=== PATIENT | female | born 1995 | race Caucasian/White ===

== ENCOUNTER 2020-03-08 14:48 | Outpatient (CLI) | payer OTHER, SELFPAY ==
--- NOTE | ~2020-03-08 | US_ITS ---
EXAMINATION: US OB >= 14 weeks Fetus EXAM DATE: 03/08/2020 15:44 INDICATION: Routine care. Anatomy. 2nd trimester. TECHNIQUE: Pelvic obstetrical transabdominal sonogram was performed by a technologist. There are mu ltiple grayscale and Doppler images available for interpretation. There are no earlier studies of th is gestation for comparison. FINDINGS: There is a single fetus identified in vertex presentation with a heart rate of 150 beats pe r minute. The placenta is located in the anterior fundal position. There is no sonographic evidence of retroplacental hemorrhage identified. There is subjectively expected amount of amniotic fluid. BIOMETRIC DATA: Biparietal diameter (BPD): 4.2cm ----------------> 18 weeks 4 days. Head circumference (HC): 15.6 cm ----------------> 18 weeks 3 days. Abdominal circumference (AC): 12.3 cm ----------> 18 weeks 0 days. Femur length (FL): 2.6 cm --------------------------> 17 weeks 5 days. These measurements are concordant. HC/AC ratio is 1.27 (The 5th -- 95th percentile range is 1.08-1.27. Estimated weight is 217 g +/- 32 g. This is the 41st percentile when the currently reported cl inical gestation age 18 weeks 0 days, clinical estimated date of delivery ([facility]) 08/09/2020 is used . estimated gestational age based on measurements from this exam is 18 weeks 1 day, with an est imated date of delivery ([facility]) 08/08. ANATOMIC SURVEY: The following anatomy is identified and is sonographically normal in appearance: Cerebral ventricles Cerebellum Cisterna magna Nuchal fold CTL-spine Four-chamber heart Diaphragm Stomach Kidneys Bladder Three-vessel cord Cord insertion IMPRESSION: 1. Single fetus in vertex presentation with heart rate 150 beats per minute. 2. Estimated weight of 217 grams, 41st percentile using the currently reported clinical gestat ion age of 18 weeks 0 days, [facility]) 08/09. 3. Normal anatomic survey. Reviewed, dictated and finalized at location A. NESE INTERPRETER IMPRESSION: 1. Single fetus in vertex presentation with heart rate 150 beats per minute. 2. Estimated weight of 217 grams, 41st percentile using the currently re ported clinical gestation age of 18 weeks 0 days, [facility]IAN([facility]) 08/09. 3. Normal anatomic survey.
== END 2020-03-08 14:49 | disposition home or self-care (01) ==
PROVIDERS: PCP Physician Assistant; Visit Provider Obstetrics & Gynecology
DX: Z34.90 Encounter for supervision of normal pregnancy, unspecified, unspecified trimester (principal); Z3A.18 18 weeks gestation of pregnancy
CPT/HCPCS: 76805

== ENCOUNTER 2023-07-14 12:50 | Outpatient (CLI) | payer OTHER, SELFPAY ==
--- NOTE | 2023-07-14 14:20 | NEURO_ITS ---
Impression: # Diabetic complains of numbness of lower extremities. # Normal motor and sensory Nerve Conduction Study. # Normal needle/EMG exam. # Clinical correlation recommended; Could be related to small fiber neuropathy. Nerve Conduction Studies Anti Sensory Summary Table Stim Site NR Peak (ms) P-T Amp (?V) Site1 Site2 Delta-P (ms) Dist (cm) Charles (m/s) Left Sup Fibular Anti Sensory (Ant Lat Mall) 14 cm 3.1 7.2 14 cm Ant Lat Mall 3.1 16.0 52 Right Sup Fibular Anti Sensory (Ant Lat Mall) 14 cm 3.0 8.8 14 cm Ant Lat Mall 3.0 16.0 53 Left Sural Anti Sensory (Lat Mall) Calf 2.9 19.6 Calf Lat Mall 2.9 16.0 55 Right Sural Anti Sensory (Lat Mall) Calf 3.4 12.0 Calf Lat Mall 3.4 16.0 47 Motor Summary Table Stim Site NR Onset (ms) O-P Amp (mV) Site1 Site2 Delta-0 (ms) Dist (cm) Charles (m/s) Left Peroneal Motor (Vastus Med) Ankle 3.2 5.1 Popit Ankle 8.0 41.0 51 Popit 11.2 4.0 Right Peroneal Motor (Vastus Med) Ankle 3.0 2.9 Popit Ankle 7.9 39.0 49 Popit 10.9 2.7 Left Tibial Motor (Abd Butler Brev) Ankle 3.2 2.9 Knee Ankle 7.8 41.0 53 Knee 11.0 1.9 Right Tibial Motor (Abd Butler Brev) Ankle 3.0 4.5 Knee Ankle 8.2 40.0 49 Knee 11.2 3.9 F Wave Studies NR F-Lat (ms) L-R F-Lat (ms) Left Peroneal (Mrkrs) (EDB) 46.25 1.37 Right Peroneal (Mrkrs) (EDB) 47.62 1.37 Left Tibial (Mrkrs) (Abd Hallucis) 46.53 0.82 Right Tibial (Mrkrs) (Abd Hallucis) 47.35 0.82 EMG Side Muscle Nerve Root Ins Act Fibs Amp Dur Recrt Comment Right AntTibialis Dp Br Fibular L4-5 Nml Nml Nml Nml Nml Right Gastroc Tibial S1-2 Nml Nml Nml Nml Nml Right Fibularis Long Sup Br Fibular L5-S1 Nml Nml Nml Nml Nml Right Flex Dig Long Tibial L5-S2 Nml Nml Nml Nml Nml Right Ext Dig Brev Dp Br Fibular L5, S1 Nml Nml Nml Nml Nml Left AntTibialis Dp Br Fibular L4-5 Nml Nml Nml Nml Nml Left Gastroc Tibial S1-2 Nml Nml Nml Nml Nml Left Fibularis Long Sup Br Fibular L5-S1 Nml Nml Nml Nml Nml Left Flex Dig Long Tibial L5-S2 Nml Nml Nml Nml Nml Left Ext Dig Brev Dp Br Fibular L5, S1 Nml Nml Nml Nml Nml MTDD
== END 2023-07-14 12:51 | disposition home or self-care (01) ==
LOC: ANHNEURO 12:51
PROVIDERS: PCP Emergency Medicine; Visit Provider Emergency Medicine
DX: R20.2 Paresthesia of skin (principal)
CPT/HCPCS: 95886; 95910

== ENCOUNTER 2024-03-28 16:06 | Outpatient (CLI) | payer OTHER, SELFPAY ==
--- NOTE | ~2024-03-28 | US_ITS ---
EXAMINATION: US soft tissue lower back DATE: 03/28/2024 17:43 INDICATION: Low back localized swelling. TECHNIQUE: Multiple grayscale and Doppler ultrasound images of the lower back were obtained. COMPARISON: None FINDINGS: There is a 3.7 x 2.7 x 1.9 cm subcutaneous mass in the right lower back with similar echote xture and echogenicity to normal subcutaneous fat, consistent with a lipoma. IMPRESSION: 1. 3.7 cm subcutaneous lipoma in the right lower back. Reviewed, dictated and finalized at location A. WORKER SUPERVISOR
--- OUTSIDE RECORDS SUMMARY | 2024-03-28 16:39 | XMS_ITS | Referral Summary ---
Author Organization [facility] Address [address] [place] [address] Care Team Providers Care Card Cutter Helper Name Role Phone Clinic, [facility] Primary Care Provider Unavailable Source Comments [facility],non-owned Affiliates and Associated Physician Practices is amultiple site organization consisting of ambulatory clinics and hospital sitesin [place], [place], [place] and [place]. This disclosure is being madepursuant to the Care Everywhere program and may not contain all information available regarding this patient. Last updated 17.[facility] Encounters Date Type Department Care Team Description 03/22/2024 Travel 03/22/2024 8:45 AM LOCAL COMBINATION TRUCK DRIVER Office Visit [facility] [address], [address] [phone] Romel Warren MD Lumbar radiculopathy (Primary Dx); Lumbar pain 03/03/2024 10:59 AM LOCAL COMBINATION TRUCK DRIVER - 03/03/2024 11:59 PM LOCAL COMBINATION TRUCK DRIVER Hospital Encounter [facility] [address] [facility] [place] [phone] Sampson Masterson MD Discharge Disposition: Home or Self Care 03/03/2024 Travel 03/03/2024 11:00 AM LOCAL COMBINATION TRUCK DRIVER Office Visit [facility] [address] [place] [phone] Sampson Masterson MD Lumbar pain (Primary Dx) 02/05/2024 Orders Only [facility] [address] [address] [facility] [place] [address] Sampson Masterson MD Lumbar pain 02/05/2024 Telephone [facility] [address] [place] [address] Sampson Masterson MD Appointment (Referral) from Last 3 Months Allergies Active Allergy Reactions Criticality Noted Date Comments Peanut-Derived Urticaria High Medications * Be aware that medications may not be up to date on this document. Alwaysverify current medications with the patient. Medication Sig Dispensed Refills Start Date End Date Status albuterol HFA (PROVENTIL;VENTOLI N;PROAIR) 108 (90 Base) MCG/ACT inhaler Inhale 2 puffs by mouth every 4 hours as needed 18 g 4 9 Active acetaminophen (TYLENOL) 500 MG tablet Take 2 (two) tablets by mouth every 6 hours as needed Maximum allowable Acetaminophen amount = 4 Grams (4000 mg) / 24 hours. 60 tablet 1 Active aspirin (Aspirin) 81 MG chew tablet Take 1 (one) tablet by mouth once daily 3 Active traMADol (Ultram) 50 MG tablet Take 1 (one) tablet by mouth every 6 hours as needed for Pain Active naproxen (Naprosyn) 500 MG tablet Take 1 (one) tablet by mouth 2 times daily with morning and evening meal Active ibuprofen (Motrin) 800 MG tablet Take 1 (one) tablet by mouth every 8 hours as needed for Fever or Pain Active cyclobenzaprine (Flexeril) 10 MG tablet Take 1 (one) tablet by mouth 3 times daily as needed for Muscle Spasms Active Mounjaro 5 MG/0.5ML injection Inject 5 (five) mg subcutaneously every 7 days Active methylPREDNISolone (Medrol Dosepak) 4 MG tablet Take by mouth as directed <!--EPICS-->Follow package insert dosing for six day supply.<!--EPICE--> 21 tablet 5 Active lidocaine (Lidoderm) 5 % patch Apply 1 (one) patch to skin once daily Apply patch to most painful area and remove after 12 hours. May reapply a new patch 12 hours later. 30 patch 5 Active cyclobenzaprine (Flexeril) 10 MG tablet Take 1 (one) tablet by mouth 3 times daily as needed for Muscle Spasms 30 tablet 5 Active gabapentin (Neurontin) 300 MG capsuleIndications :Lumbar radiculopathy Take 1 (one) capsule by mouth 3 times daily 90 capsule 2 5 Active insulin glargine (Lantus/Semglee) 100 units/mL pen Inject 20 (twenty) Units subcutaneously at bedtime 15 mL 1 3 03/03/19 25 Discontinu ed(List Clean-Up) blood glucose test stripIndications:D iabetes mellitus due to underlying condition, uncontrolled, with hyperglycemia (HCC) Use 1 (one) strip as directed 100 strip 3 03/03/19 25 Discontinu ed(List Clean-Up) lancetsIndications :Diabetes mellitus due to underlying condition, uncontrolled, with hyperglycemia (HCC) Use 1 (one) Each once daily 100 Each 3 03/03/19 25 Discontinu ed(List Clean-Up) metFORMIN (Glucophage) 500 MG tablet Take 1 (one) tablet by mouth 2 times daily with morning and evening meal 60 tablet 3 03/03/19 25 Discontinu ed(List Clean-Up) gabapentin (Neurontin) 100 MG capsule Take 1 (one) capsule by mouth at bedtime 03/22/19 25 Discontinu ed(Dose Adjustment ) semaglutide (Rybelsus) 7 MG tablet Take 1 (one) tablet by mouth once daily Take with a sip of water (< 4 oz) at least 30 minutes before any food, drink, or other meds. 03/03/19 25 Discontinu ed(List Clean-Up) nitrofurantoin monohyd macro crystals (Macrobid) 100 MG capsule Take 1 (one) capsule by mouth 2 times daily with morning and evening meal 4 03/03/19 25 Discontinu ed(List Clean-Up) Methylcobalamin 5000 MCG Take 5,000 mcg by mouth once daily 4 03/03/19 25 Discontinu ed(List Clean-Up) Cobalamin Combinations (B-12) 100-5000 MCG SUBL Take 1 tablet by mouth once daily 4 03/03/19 25 Discontinu ed(List Clean-Up) rosuvastatin (Crestor) 20 MG tablet Take 1 (one) tablet by mouth once daily 03/03/19 25 Discontinu ed(List Clean-Up) Mounjaro 2.5 MG/0.5ML injection Inject 2.5 (two and one-half) mg subcutaneously every 7 days 03/03/19 25 Discontinu ed(List Clean-Up) atorvastatin (Lipitor) 40 MG tablet Take 1 (one) tablet by mouth once daily 4 03/03/19 25 Discontinu ed(List Clean-Up) Active Problems Patient Care Coordination No te Formatting of this note migh t be different from the original. [employer] form completed. Diapers given. 05/21/2020 06/04/2020 07/02/20 NOPP/MFCC 07/2018 Problem Noted Date Diagnosed Date Chlamydial infection 02/05/2024 Abnormal glucose tolerance test (GTT) 02/05/2024 Anemia 02/05/2024 Abnormality of progesterone 02/05/2024 Gonorrhea 02/05/2024 Dysmenorrhea 02/05/2024 state 02/05/2024 Vitamin D deficiency 02/05/2024 Seasonal asthma 02/05/2024 Asthma 02/05/2024 Pain of both sacroiliac joints 10/26/2023 Pain of both hip joints 10/26/2023 Patent foramen ovale 01/29/2023 Tension-type headache 01/29/2023 Acute left-sided weakness 01/14/2023 Chest pain 05/07/2021 Abnormal glucose level 05/07/2021 Palpitations 05/07/2021 Encounter for health-related screening Encounter for induction of labor 08/02/2020 Heterozygous for MTHFR gene mutation 01/08/2020 Bacterial vaginosis 12/14/2019 Supervision of high-risk of young mult igravida 12/06/2018 Asthma affecting , antepartum 9 Subchorionic hematoma 07/13/2018 Carrier of group B Streptococcus 06/15/2018 Overview (06/04/2020): + at NO[facility] with Dr. Rai 05/2018 Carrier of group B Streptococcus 06/15/2018 06/15/2018 Diabetes mellitus 06/03/2018 Overview (02/05/2024): Gestational vs T2DM. Eye exam last completed 02/08/2020. Blood glucose abnormal 06/02/2017 Mild intermittent asthma 06/02/2017 Medial epicondylitis 06/02/2017 Right wrist pain 05/26/2017 Hypertriglyceridemia 02/03/2017 Obesity 05/07/2016 Obesity affecting , antepartum Type 2 diabetes mellitus during History of section complicating pregnan cy Resolved Problems Problem Noted Date Diagnosed Date Resolved Date Normal labor and delivery 01/18/2019 Previous delivery, antepartum 12/27/2018 02/13/2020 Assessment & Plan (12/27/2018 9:59 AM CDT): desires repeat Asthma exacerbation 10/14/2018 10/29/19 19 Asthma, moderate persistent 08/04/2018 12/27/2018 Diabetes mellitus 06/03/2018 06/04/2020 Overview (06/04/2020): A1C 12/08/19: 7.1% Assessment & Plan (12/27/2018 9:57 AM CDT): Overall appropriate blood glucose control. This past week with malfunction of glucose meter. Fetus appropriately grown on last assessment which is reassuring. No changes recommended to insulin regimen. continue twice weekly testing encourage kick counts was scheduled 39 week repeat at next visit--patient needing to arrange work schedule encouraged and weight reduction Assessment & Plan (12/06/2018 4:56 PM CDT): Incomplete blood glucose logs reviewed. Consistent fasting hyperglycemia. No available postprandial lunch or dinner values. I emphasized the risk to the fetus from uncontrolled hyperglycemia and encouraged cooperation with our recommended Diabetes management. Plan of care: Aspirin for preeclampsia Hemoglobin A1c every trimester Serial growth after 20 weeks Twice weekly nonstress testing until delivery Delivery initiation at 39 weeks Insulin drip in labor Recommend weight reduction T2DM (type 2 diabetes mellitus) 05/18/2014 08/04/2018 Respiratory infection 2020 Overview (10/14/2018): in 2019 from chlamydophila pneumoniae Oligohydramnios, antepartum 12/27/2018 Oligohydramnios, antepartum 12/31/2018 Screening, , for fe basia anatomic survey 06/04/2020 Immunizations Name Administration Dates Next Due INFLUENZA VACCINE, TRIV. (AF LURIA, FLUZONE TRIVALENT; 6MO+) (IIV3) 04/27/2014 DTP 11/08/1997, 5,1993,07/02,1993 FLU VACCINE QUAD IIV4 SPLIT 0.25 ML IM 0 HEP A PED/ADULT VACCINE 01/18/2010 HEP B VACCINE, PED/ADOL 07/28/2002,12/15/1997, Human Papilloma Virus Bivalent Vaccine 8 INFLUENZA VACCINE 12/31/2007 MENINGOCOCCAL B VACCINE 10/01/2007 MENINGOCOCCAL CONJUGATE (MCV4P) 10/01/2007 MMR 08/16/2020(), 021(Deferred: See Comments - patient is rubella immune),01/21/2019(Deferred: See Comments - immune),01/20/2019(Deferred: See Comments - immune),11/08/1997,09/04/1994 POLIO,HISTORIC VACCINE 11/08/1997,1995,1993,07/02,1993 TDAP (7yrs+) 08/16/2020(Deferred: See Comments - already administered),08/03/2020(Deferred: See Comments - pt already received),06/04/2020,01/21/2019(Deferr ed: See Comments - already received),11/09/2018,10/01/2007 Social History Tobacco Use Types Packs/Day Years Used Date Smoking Tobacco: Never Smokeless Tobacco: Never Tobacco Cessation:Counseling Given: Not Answered Alcohol Use Standard Drinks/Week Comments No 0 (1 standard drink = 0.6 oz pur e alcohol) AUDIT-C Answer Date Recorded Q1: How often do you have a drink containing alcohol? Never 01/15/2023 Q2: How many drinks containi ng alcohol do you have on a typical day when you are drinking? Patient does not drink 3 Q3: How often do you have si x or more drinks on one occasion? Never 01/15/2023 Overall Financial Resource Strain (CARDIA) Answe r Date Recorded How hard is it for you to pa y for the very basics like food, housing, medical care, and heating? Not hard at all 01/15/2023 PHQ-2 Answer Date Recorded Patient Health Questionnaire-2 Score 0 02/28/2024 [facility] - Occupational Stress Questionnaire Answer Date Recorded Do you feel stress - tense, restless, nervous, or anxious, or unable to sleep at night because your mind is troubled all the time - these days? Not at all 01/15/2023 Hunger Vital Sign Answer Date Recorded Within the past 12 months, y ou worried that your food would run out before you got the money to buy more. Never true 01/16/20 23 Within the past 12 months, t he food you bought just didn't last and you didn't have money to get more. Never true 01/15/2023 PRAPARE - Transportation Answer Date Re corded In the past 12 months, has l ack of transportation kept you from medical appointments or from getting medications? No 12/31 In the past 12 months, has l ack of transportation kept you from meetings, work, or from getting things needed for daily living? No 01/15/2023 Housing Stability Vital Sign Answer Johnson e Recorded In the last 12 months, was t here a time when you were not able to pay the mortgage or rent on time? No 01/15/2023 In the last 12 months, how many places have you lived? 1 01/15/2023 In the last 12 months, was t here a time when you did not have a steady place to sleep or slept in a penitentiary (including now)? No 01/15/2023 Sex and Gender Information Value Date Recorded Sex Assigned at Not on file Gender Identity Not on file Sexual Orientation Not on file Last Filed Vital Signs Vital Sign Reading Time Taken Comments Blood Pressure 122/66 03/22/2024 8:52 AM LOCAL COMBINATION TRUCK DRIVER Pulse 81 03/22/2024 8:52 AM LOCAL COMBINATION TRUCK DRIVER Temperature 36.6 ??C (97.8 ??F) 01/16/2023 9:15 AM CS T Respiratory Rate 16 03/22/2024 8:52 AM LOCAL COMBINATION TRUCK DRIVER Oxygen Saturation 99% 05/04/2023 3:46 PM LOCAL COMBINATION TRUCK DRIVER Inhaled Oxygen Concentration 21% 10/14/2018 9 :28 PM CDT Weight 107.5 kg (237 lb) 03/22/2024 8:52 AM LOCAL COMBINATION TRUCK DRIVER Height 170.2 cm (5' 7 ) 05/04/2023 3:46 PM LOCAL COMBINATION TRUCK DRIVER Body Mass Index 37.12 05/04/2023 3:46 PM LOCAL COMBINATION TRUCK DRIVER Functional Status Functional Status Response Date of Assess ment Is person deaf or have serious hearing difficult y? No 01/15/2023 Is person blind or have serious difficulty seein g? No 01/15/2023 Does person have serious dif ficulty walking/climbing stairs? No 01/15/2023 Does person have difficulty dressing/bathing? No 01/15/2023 Does person have difficulty doing errands alone? No 01/15/2023 Cognitive Status Response Date of Assessm ent Does person have difficulty concentrating/remembering/making decisions? No 01/15/2023 Plan of Treatment Upcoming Encounters Date Type Department Care Team (Late st Contact Info) Description 05/12/2024 10:15 AM CDT Office Visit [facility] [address] [place] [phone] Sampson Masterson MD [address] [place] [address] [place] [address] 05/19/2024 8:30 AM CDT Office Visit [facility] - Rheumatology [address] [place] [address], [place] [phone] Jagjit Harp MD [address] [place] [address] [place] [phone] Procedures Procedure Name Priority Date/Time Associated Diagnosis Comments XR LUMBAR SPINE 4VW OR MORE Routine 03/03/2024 11:06 AM LOCAL COMBINATION TRUCK DRIVER Lumbar pain BASIC METABOLIC PANEL (CALCIUM TOTAL) AM Draw 01/15/2023 1:09 AM LOCAL COMBINATION TRUCK DRIVER HEMOGLOBIN A1C Add on 01/15/2023 1:09 AM LOCAL COMBINATION TRUCK DRIVER HIV-1 HIV-2 ANTIBODY + HIV P24 AG PANEL Routine 06/04/2020 9:10 AM CDT Supervision of high-risk of young multigravida (HCC) False positive HIV serology from Last 3 Months or Most Recently Relevant to Health Maintenance Results * XR Lumbar Spine 4Vw or More (03/03/2024 11:06 AM LOCAL COMBINATION TRUCK DRIVER) Anatomical Region Laterality Modality Spine Radiographic Liliya ging 03/03/2024 11:1 2 AM LOCAL COMBINATION TRUCK DRIVER Impressions 03/03/2024 11:14 AM LOCAL COMBINATION TRUCK DRIVER IMPRESSION: Lumbar dextroscoliosis. > Interpreting Provider: Glynn Ro MD on 03/03/2024 11:14 AM Narrative 03/03/2024 11:14 AM LOCAL COMBINATION TRUCK DRIVER PROCEDURE: ??XR LUMBAR SPINE 4VW OR MORE DATE/TIME OF EXAM: ??03/03/2024 11:10 AM CLINICAL INFORMATION: None relevant/not provided if blank. Indication: M54.50: Lumbar pain Additional History: COMPARISON: None. TECHNIQUE: FINDINGS: There is lumbar dextroscoliosis. There is no fracture. There is no subluxation with flexion or extension. There is a transitional vertebra at the lumbosacral junction. The lumbar disc spaces are normal. The facet joints are normal. Procedure Note Glynn Ro MD - 03/03/2024 PROCEDURE: XR LUMBAR SPINE 4VW OR MORE DATE/TIME OF EXAM: 03/03/2024 11:10 AM CLINICAL INFORMATION: None relevant/not provided if blank. Indication: M54.50: Lumbar pain Additional History: COMPARISON: None. TECHNIQUE: FINDINGS: There is lumbar dextroscoliosis. There is no fracture. There is no subluxation with flexion or extension. There is a transitional vertebraat the lumbosacral junction. The lumbar disc spaces are normal. The facet joints are normal. IMPRESSION: Lumbar dextroscoliosis. > Interpreting Provider: Glynn Ro MD on 03/03/2024 11:14 AM Sampson Masterson MD DIAGNOSTIC IMAGING O RDERABLES * (ABNORMAL) HEMOGLOBIN A1C (01/15/2023 1:09 AM LOCAL COMBINATION TRUCK DRIVER) Hemoglobin A1c 10.5(H) <5.7 % 01/15/2023 1:50 AM LOCAL COMBINATION TRUCK DRIVER [facility] Estimated Average Glucose 255 mg/dL 01/15/2023 1:50 AM LOCAL COMBINATION TRUCK DRIVER [facility] Blood BLOOD SPECIMEN / Unknown Venipuncture / Unknown 01/15/2023 1:09 AM LOCAL COMBINATION TRUCK DRIVER 01/15/2023 1:21 AM LOCAL COMBINATION TRUCK DRIVER Narrative [facility] - 01/15/2023 1:50 AM LOCAL COMBINATION TRUCK DRIVER HbA1c Interpretation: Normal: < 5.7% Pre-diabetes: 5.7-6.4% Diabetes: Equal to or greater than 6.5% Test results diagnostic of diabetes should be repeated for confirmation. Treatment target values recommended by ADA and other clinical organizations should be used to evaluate metabolic control in patients. This test should not replace glucose testing for patients with Type 1 diabetes, pediatric patients, or women. ??Falsely low HbA1c results may be observed in patients with clinical conditions that shorten erythrocyte life span or decrease mean erythrocyte age such as the presence of unstable hemoglobin variants, elevated hemoglobin F level or other causes of hemolytic anemia. ??HbA1c may not accurately reflect glycemic control when clinical conditions that affect erythrocyte survival are present. ??Severe Iron deficiency anemia may yield falsely high results. ??Hemoglobin A1c assay should not be used to diagnose or monitor diabetes in patients with malignancy, recent blood transfusion, chronic kidney or liver disease. ?? This method may yield falsely low results when hemoglobin (HbF) exceeds 5% in the specimen. The Pena Alinity assay for the measurement of HbA1c is a National Glycohemoglobin Standardization Program (NGSP) certified method. Anna Da Silva MD LAB - CHEMISTRY STEFANIA SANCHEZ [facility] Organization Address City/State/ZIP Co de Phone Number [facility] [address] [place] [address] * (ABNORMAL) BASIC METABOLIC PANEL (CALCIUM TOTAL) (01/15/2023 1:09 AM LOCAL COMBINATION TRUCK DRIVER) Glucose 282(H) 70 - 105 mg/dL 01/15/2023 1:37 AM LOCAL COMBINATION TRUCK DRIVER [facility] Sodium 138 136 - 145 mmol/L 01/15/2023 1:37 AM [facility] Potassium 3.7 3.5 - 5.1 mmol/L 01/15/2023 1:37 AM [facility] Chloride 107 98 - 107 mmol/L 01/15/2023 1:37 AM [facility] CO2 20(L) 22 - 29 mmol/L 01/15/2023 1:37 AM [facility] Calcium 8.4 8.4 - 10.4 mg/dL 01/15/2023 1:37 AM [facility] Anion Gap 11 6 - 16 mmol/L 01/15/2023 1:37 AM [facility] BUN 6 5.3 - 18.7 mg/dL 01/15/2023 1:37 AM [facility] Creatinine 0.71 0.57 - 1.11 mg/dL 01/15/2023 1:37 AM [facility] eGFR by CKD-EPI >90 >=90 mL/min/1.7 3 m2 01/15/2023 1:37 AM LOCAL COMBINATION TRUCK DRIVER [facility] Blood BLOOD SPECIMEN / Unknown Venipuncture / Unknown 01/15/2023 1:09 AM LOCAL COMBINATION TRUCK DRIVER 01/15/2023 1:21 AM LOCAL COMBINATION TRUCK DRIVER Anna Da Silva MD LAB - CHEMISTRY STEFANIA SANCHEZ [facility] Organization Address City/State/[facility] Co de Phone Number [facility] [address] [place] [address] * (ABNORMAL) HIV-1 HIV-2 ANTIBODY + HIV P24 AG PANEL (06/04/2020 9:10 AM CDT) HIV1/2 Ab + P24 Ag REACTIVE( A) Non Reactive 06/04/2020 1:42 PM CDT [facility] Blood BLOOD SPECIMEN / Unknown Venipuncture / Unknown 06/04/2020 9:10 AM CDT 06/04/2020 9:27 AM CDT Narrative [facility] - 06/04/2020 1:42 PM CDT HIV-1/HIV-2 Antibody + Antigen screening test is reactive, but is NOT DIAGNOSTIC. HIV-1/HIV-2 AB Differentiation assay, a supplemental test, will be performed. ?? If HIV-1/HIV-2 Differentiation testing is negative, RNA testing will be performed. See separate reports. Suha Vicente MD LAB - CHEMISTRY ORD ERABLES [facility] [address] [place] [address] from Last 3 Months or Most Recently Relevant to Health Maintenance Administered Medications Advance Directives * Full Code (Latest Code Status on File) Date Activated Date Inactivated Comments 01/15/2023 12:06 AM 01/16/2023 3:22 PM * Full Code Date Activated Date Inactivated Comments 08/15/2020 12:52 PM 08/16/2020 9:58 PM * Full Code Date Activated Date Inactivated Comments 08/02/2020 8:53 AM 08/04/2020 3:01 PM * Full Code Date Activated Date Inactivated Comments 01/18/2019 8:27 PM 01/22/2019 5:32 PM * Full Code Date Activated Date Inactivated Comments 12/30/2018 5:05 PM 12/31/2018 8:16 PM Care Teams Card Cutter Helper Relationship Specialty Start Date End Date Clinic, [facility] Update Information PCP - General 08/15/20
--- OUTSIDE RECORDS SUMMARY | 2024-03-28 16:40 | XMS_ITS | Data Portability ---
Author Organization [facility] Address [address] [place] [address] Assessment No assessment recorded. Plan of Treatment Reminders Order Date Submit Date Provider Last Modified By Organization Details Last Modified Time Details Appointments ANY 15 2024 08:15A M Farideh Ortiz MD Not available Not available Not available ANY 30 2024 11:00A M Farideh Ortiz MD Not available Not available Not available Lab RAEGAN (antinucl ear antibodie s) screen, serum 2023 024 JACK [facility], [address], [address], [place], [address], 10/05/2023 15:09:28 HbA1c (hemoglob in A1c), blood 2023 024 [email or web address] In-Office Order, Internal Use Only DO Not Attach Compendium DO Not Attach Compendium, Do Not Delete/merge, [id number] 12/17/2023 13:57:38 Referral orthopedi c surgeon referral - Patient is having episodic back pain. Bilateral hip pain and right sciatica on exam. Bilateral hip osteoarth ritis on xray. Trying to determine the likelihoo d that her pain is due to osteoarth ritis of hips versus sciatica. 2023 024 [facility], [address], [place], [address], 11/13/2023 14:29:23 podiatris t referral 2023 024 bala Baron DPM, [address] , [place], [address], 10/09/2023 09:05:41 physical therapist referral 2023 [facility], [address] [facility] [place], [address], 11/17/2023 08:50:44 pain managemen t referral - Please let me know if not covered 2023 lee Vargas MD, [address] [facility] , [place], [address], 03/25/2024 14:02:52 orthopedi c spine surgeon referral 2023 [facility], [address] [place], [address], 03/25/2024 14:01:48 Procedures None recorded. Surgeries None recorded. Imaging XR, foot - trauma left fifth toe and left fifth metatarsa l 2023 [facility] ([facility] Scheduling), [address] [place], [address], 10/12/2023 18:25:26 MRI, sacroilia c joint(s), w/o contrast - Look at soft tissue around right SI joint, two masses, 2023 [facility] [place] ([facility] Scheduling), [address] [place], [address], 02/05/2024 08:56:07 MRI, lumbar spine, w/o contrast - Approved by insurance Reference # [id number] 2023 [facility] ([facility] Scheduling), [address] [place], [address], 01/13/2024 19:00:50 XR, tibia + fibula - Look for evidence of healing 2024 025 [facility] (One Call Scheduling), [address], [place], [address], 03/23/2024 10:10:20 Medication Orders Naprosyn 500 mg tablet 2023 024 [id number], [address], [place], [address], 10/12/2023 11:51:05 Mounjaro 2.5 mg/0.5 mL subcutane ous pen injector 2023 024 [id number], [address], [place], [address], 12/17/2023 14:03:33 Mounjaro 5 mg/0.5 mL subcutane ous pen injector 2023 024 [id number], [address] [place], [address], 12/17/2023 14:03:33 Naprosyn 500 mg tablet 2023 024 [id number], [address], [place], [address], 12/17/2023 13:57:38 Mounjaro 5 mg/0.5 mL subcutane ous pen injector 2023 024 [facility] #[id number], [address], [place], [address], 01/20/2024 17:33:30 cyclobenz aprine 10 mg tablet 2023 024 [id number], [address], [place], [address], 01/20/2024 17:33:30 ibuprofen 800 mg tablet 2023 024 [facility] #[id number], [address], [place], [address], 01/20/2024 17:33:30 Naprosyn 500 mg tablet 2024 025 [facility] #[id number], [address], [place], [address], 03/23/2024 09:44:49 Patient TargetsNo targets recorded. Patient Instructions Encounter Date Encounter Id Patient Instructions Last Modified By Organization Details Last Modified Time 10/02/2023 [id number] A healthy lifestyle: care instructions [email or web address] Not available 10/02/2023 10:17:59 Reason for Referral Orthopedic Surgeon Referral for Low back pain Patient is having episodic back pain. Bilateral hip pain and right sciatica on exam. Bilateral hip osteoarthritis on xray. Trying to determine the likelihood that her pain is due to osteoarthritis of hips versus sciatica. Referring Physician: Family Nikia Sheridan, Encounter Date: 10/02/2023 Travel Attendants Referral for Low back pain Referring Physician: Family Nikia Sheridan, Encounter Date: 10/02/2023 Physical Therapist Referral for Low back pain Referring Physician: Family Nikia Sheridan, Encounter Date: 10/02/2023 Pain Management Referral for Annular tear of lumbar disc Please let me know if not covered Referring Physician: Family Nikia Sheridan, Encounter Date: 01/20/2024 Orthopedic Spine Surgeon Ref erral for Annular tear of lumbar disc Referring Physician: Family Nikia Sheridan, Encounter Date: 01/20/2024 Results Created Date Observation Date Name Description Value Unit Range Abnormal Flag Note LastModifiedBy Organization Detail LastModifiedTime 09/16/19 24 09/17/2023 VITAM IN B12 AND FOLAT E vitamin B12 679 pg/mL 232-12 45 Not Available [facility] ([facility]) [address], [place], [address], 09/17/2023 13:13:09 09/16/19 24 09/17/2023 VITAM IN B12 AND FOLAT E folate (folic acid), serum 6.7 NG/mL >3.0 A serum folat e kelly ntrat ion of less than 3.1 ng/mL is consi dered to repre sent clini natividad defic iency . Not Available [facility] ([facility]) [address] [facility] [address], [place], [address], 09/17/2023 13:13:09 10/02/19 24 10/03/2023 VITAM IN B12 AND FOLAT E vitamin B12 874 pg/mL 232-12 45 Not Available [facility] ([facility]) [address] [facility], [place], [address], 10/03/2023 08:27:11 10/02/19 24 10/03/2023 VITAM IN B12 AND FOLAT E folate (folic acid), serum 7.7 NG/mL >3.0 A serum folat e kelly ntrat ion of less than 3.1 ng/mL is consi dered to repre sent clini natividad defic iency . Not Available [facility] ([facility]) [address] [facility] [address], [place], [address], 10/03/2023 08:27:11 10/02/19 24 10/05/2023 ANTIN UCLEA R AB MULTI PLEX RFX 9 RAEGAN direct POSITI VE negati ve abnormal Not Available [facility] ([facility]) [address] [facility] [address], [place], [address], 10/05/2023 15:09:28 10/02/19 24 10/05/2023 ANTIN UCLEA R AB MULTI PLEX RFX 9 anti-DNA (ds) Ab qn 1 IU/mL 0-9 Negat jhon <5 Equiv ocal 5 - 9 Posit jhon >9 Not Available [facility] ([facility]) [address] [facility] [address], [place], [address], 10/05/2023 15:09:28 10/02/19 24 10/05/2023 ANTIN UCLEA R AB MULTI PLEX RFX 9 account planner antibodies 1.0 ai 0.0-0. 9 above high normal Not Available [facility] ([facility]) [address] [place], [address], 10/05/2023 15:09:28 10/02/19 24 10/05/2023 ANTIN UCLEA R AB MULTI PLEX RFX 9 olivera antibodies <0.2 ai 0.0-0. 9 Not Available [facility] ([facility]) [address] [facility] [address], [place], [address], 10/05/2023 15:09:28 10/02/19 24 10/05/2023 ANTIN UCLEA R AB MULTI PLEX RFX 9 antisclerode rma-70 antibodies <0.2 Not Available [facility] ([facility]) [address] [facility] [address], [place], [address], 10/05/2023 15:09:28 10/02/19 24 10/05/2023 ANTIN UCLEA R AB MULTI PLEX RFX 9 sjogren's anti-ss-A <0.2 Not Available [facility] ([facility]) [address] [place], [address], 10/05/2023 15:09:28 10/02/19 24 10/05/2023 ANTIN UCLEA R AB MULTI PLEX RFX 9 sjogren's anti-ss-B <0.2 Not Available [facility] ([facility]) [address] [place], [address], 10/05/2023 15:09:28 10/02/19 24 10/05/2023 ANTIN UCLEA R AB MULTI PLEX RFX 9 antichromati n antibodies <0.2 Not Available [facility] ([facility]) [address] [place], [address], 10/05/2023 15:09:28 10/02/19 24 10/05/2023 ANTIN UCLEA R AB MULTI PLEX RFX 9 anti-francie-1 <0.2 Not Available [facility] ([facility]) [address] [facility] [address], [place], [address], 10/05/2023 15:09:28 10/02/19 24 10/05/2023 ANTIN UCLEA R AB MULTI PLEX RFX 9 anti-centrom ere B antibodies <0.2 Not Available [facility] ([facility]) [address] [facility], [place], [address], 10/05/2023 15:09:28 10/02/19 24 10/05/2023 ANTIN UCLEA R AB MULTI PLEX RFX 9 see below: RENATO T [employer]oa ntibo dy Disea se Assoc iatio n ----- ----- ----- ----- ----- ----- ----- ----- ----- ----- ----- ----- Condi tion Frequ ency ----- ----- ----- ----- - ----- ----- ----- ----- ---- ----- ---- Antin uclea r Antib saad, SLE, mixed conne ctive Direc t (RAEGAN- D) fatimah youssef disea ses ----- ----- ----- ----- - ----- ----- ----- ----- ---- ----- ---- dsDNA SLE 40 - 60% ----- ----- ----- ----- - ----- ----- ----- ----- ---- ----- ---- Chrom atin Drug induc ed SLE 90% SLE 48 - 97% ----- ----- ----- ----- - ----- ----- ----- ----- ---- ----- ---- SSA (Ro) SLE 25 - 35% Sjogr en's Syndr ome 40 - 70% Neona basia Lupus 100% ----- ----- ----- ----- - ----- ----- ----- ----- ---- ----- ---- SSB (La) SLE 10% Sjogr en's Syndr ome 30% ----- ----- ----- ----- - ----- ----- ----- ----- --- ----- ---- Sm (anti -Jd h) SLE 15 - 30% ----- ----- ----- ----- - ----- ----- ----- ----- --- ----- ---- [employer] Mixed Conne ctive Tissu e Disea se 95% (U1 nRNP, SLE 30 - 50% anti- ribon ucleo prote in) Polym yosit is and/o r Lecompte tomyo sitis 20% ----- ----- ----- ----- - ----- ----- ----- ----- ---- ----- ---- Scl-7 0 (anti DNA Scler oderm a (diff use) 20 - 35% topoi maria eugenia ase) Crest 13% ----- ----- ----- ----- - ----- ----- ----- ----- ---- ----- ---- Francie-1 Polym yosit is and/o r Lecompte tomyo sitis 20 - 40% ----- ----- ----- ----- - ----- ----- ----- ----- ---- ----- ---- Centr omere B Scler oderm a - Crest varia nt 80% Not Available [facility] ([facility]) [address], [place], [address], 10/05/2023 15:09:28 12/17/19 24 12/17/2023 HbA1c (hemo globi n A1c), blood HbA1c 7.2 Not Available In-Office Order Internal Use Only DO Not Attach Compendium DO Not Attach Compendium, Do Not Delete/merge, [id number] 12/17/2023 12:27:04 09/16/19 24 09/16/2023 XR, lumbo sacra l spine No observ ation record ed. [facility] [address] [place], [address], 09/21/2023 14:21:45 09/16/19 24 09/16/2023 XR, hip, bilat eral No observ ation record ed. [facility] [address] [place], [address], 09/21/2023 14:21:45 10/12/19 24 10/12/2023 XR, foot No observ ation record ed. [facility] [address] [place], [address], 10/14/2023 11:58:49 01/13/20 24 01/13/2024 MRI, lumba r spine , w/o contr ast No observ ation record ed. [facility] [address] [place], [address], 01/20/2024 17:35:52 03/09/19 25 03/09/2024 XR, ankle No observ ation record ed. [email or web address] [facility] [address] [place], [address], 03/10/2024 10:00:21 03/09/19 25 03/09/2024 XR, foot No observ ation record ed. [facility] [address] [place], [address], 03/09/2024 19:20:43 Result Notes None recorded. 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, [place], [address] , [place] [facility] 2 17:58:01 Medial epicondy litis 91423991 Active 2017 Maddison Moreira PA-C Attn: Accounting ,[address] [facility], [place], [address] , [place] [facility] 8 11:53:28 Blood glucose outside referenc e range 529315870 Completed 201706/15/2018 [place] [facility] 9 17:07:31 Mild intermit tent asthma 050347464 Completed 201706/15/2018 [place] [facility] 9 17:07:52 Diabetes mellitus 87880934 Active 2018 Gestatio nal vs T2DM. Eye exam last complete d 0. Brook Lemus MD Attn: Accounting ,[address] [facility], [place], [address] , [place] [facility] 2 17:58:01 Pregnanc y 54670601 Completed 201806/15/2018 Erum Swanson [place] [facility] 1 11:57:10 Chlamydi al infectio n 273676246 Completed Antonieta Sanchez [place] [facility] 9 12:16:48 Abnormal progeste rea 581028901 Completed AntonietaLILLIAN Funez[place] [facility] 9 12:16:48 Gonorrhe a 01293161 Completed LILLIAN [place] [facility] 9 12:16:49 Body mass index 30+ - obesity 353471175 Completed 2017 L[place] [facility] 9 12:16:48 Asthma 497868692 Completed [place] [facility] 9 12:16:48 Hypertri glycerid emia 276923359 Completed 2016 L[place] [facility] 9 12:16:48 Anemia 749171313 Completed [place] [facility] 9 12:16:48 Diabetes mellitus 67882393 Completed 2018 [place] [facility] 9 12:16:48 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 Antonieta [place] [facility] 9 12:16:48 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, [place], [address] , 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, [place], [address] , [facility] - [facility] 2 17:58:00 Body mass index 30+ - obesity 655793190 Completed 2017 Brook Lemus MD Attn: Accounting ,[address] [facility], [place], [address] , [facility] - [facility] 2 17:58:01 Deliveri es by [id number] Completed Brook Lemus MD Attn: Accounting ,[address] [facility], [place], [address] , [facility] - [facility] 2 17:58:00 Diabetes mellitus 73504857 Completed 2018 Gestatio nal vs T2DM. Eye exam last complete d 0. Brook Lemus MD Attn: Accounting ,[address] [facility], [place], [address] , [facility] - [facility] 2 17:58:00 Group B Streptoc occus carrier 17840334202 03 Completed 2018 Brook Lemus MD Attn: Accounting ,[address] [facility], [place], [address] , [place] [facility] 2 17:58:01 Abnormal progeste rea 897306450 Completed Brook Lemus MD Attn: Accounting ,[address] [facility], [place], [address] , [facility] - [facility] 2 17:58:01 Asthma 491143456 Completed Brook Lemus MD Attn: Accounting ,[address] [facility], [place], [place], [address] [place] [address] , [place] [facility] 2 17:58:01 Diabetes mellitus 56758798 Completed 02/08/2016 Removal Reason: resolved JANNET RIDER Attn: Accounting ,[address] [facility], [place], [place], [address] [place] [address] , [place] [facility] 0 08:59:12 Diabetes mellitus 66115849 Completed Antonieta Gould [place] [facility] 5 14:50:23 Abnormal progeste rea 836157329 Active Brook Lemus MD Attn: Accounting ,[address] [facility], [place], [address] , [place] [facility] 2 17:58:01 Abnormal progeste rea 825534639 Completed Antonieta Gould [place] [facility] 5 14:50:23 Vitamin D deficien cy 25687895 Active Khris Rai [place] [facility] 6 11:30:10 Vitamin D deficien cy 96724637 Completed Antonieta Gould [place] [facility] 5 14:50:23 Patent foramen ovale 943767142 Active 2022 JANNET RIDER Attn: Accounting ,[address] [facility], [place], [place], [address] [place] [address] , [place] [facility] 3 10:14:30 Tension- type headache 329853013 Active 2022 JANNET RIDER Attn: Accounting ,[address] [facility], [place], [place], [address] [place] [address] , [place] [facility] 3 10:14:34 Gonorrhe a 25331869 Completed 08/10/2018 Khris R[place] [facility] 9 17:10:02 Gonorrhe a 59991043 Completed Antonieta Gould [place] [facility] 5 14:50:23 Chlamydi al infectio n 612616964 Completed 08/10/2018 Kh[place] [facility] 9 17:09:20 Chlamydi al infectio n 330536927 Completed Antonieta Gould [place] [facility] 5 14:50:23 Bacteria l vaginosi s 971293267 Completed 05/31/2019 JANNET RIDER Attn: Accounting ,[address] [facility], [place], [address] , [place] [facility] 2 15:06:13 Bacteria l vaginosi s 591097534 Completed Antonieta [place] [facility] 5 14:50:23 Asthma 210065156 Active Brook Lemus MD Attn: Accounting ,[address] [facility], [place], [address] , [place] [facility] 2 17:58:01 Asthma 664241816 Completed Antonieta [place] [facility] 5 14:50:23 Glucose toleranc e test outside referenc e range 400993098 Completed 06/15/2018 Khris R[place] [facility] 9 17:07:39 Glucose toleranc e test outside referenc e range 372850649 Completed Antonieta Gould [place] [facility] 5 14:50:23 Anemia 073647452 Active Antonieta Sanchez [place] [facility] 9 12:16:48 Anemia 150303166 Completed Antonieta [place] [facility] 5 14:50:23 Seasonal asthma 114567936 Completed 06/15/2018 [place] [facility] 9 17:07:56 Seasonal asthma 270714073 Completed Antonieta Guold [place] [facility] 5 14:50:23 Large for gestatio n age fetus Active [place] [facility] 6 11:30:10 Large for gestatio n age fetus Completed Antonieta [place] [facility] 5 14:50:23 Postpart [facility] [id number] Completed 06/15/2018 [place] [facility] 9 17:08:13 Postpart state [id number] Completed Antonieta [place] [facility] 5 14:50:23 Deliveri es by [id number] Active Brook Lemus MD Attn: Accounting ,[address] [place], [address] , [place] [facility] 2 17:58:00 Deliveri es by [id number] Completed Antonieta [place] [facility] 5 14:50:23 Postpart care Completed 06/15/2018 Kh[place] [facility] 9 17:08:22 Dermatit is Completed 06/15/2018 Kh[place] [facility] 9 17:11:15 Dysmenor jennifer 837264518 Completed 06/15/2018 Kh[place] [facility] 9 17:11:19 Obesity 282905553 Completed 201606/02/2017 Maddison Moreira PA-C Attn: Accounting ,[address] [facility], [place], [address] , [place] [facility] 8 11:28:31 Problem Notes None recorded. Procedures Surgical History Date Name Laterality Status Provider Name and Address Organization Details Recorded Time 1 IUD Insertion completed [place]ris [place] [facility] 10/04/2020 13:07:28 1 Dilation and Curettage completed Erum Swanson MA PA - [facility] 08/13/2020 11:55:18 1 delivery completed Erum Swanson [place] [facility] 08/13/2020 11:54:59 9 delivery completed LILLIAN Silverio - [facility] 08/13/2020 11:54:47 9 Date of Last Pap Smear completed Erum [place] [facility] 09/22/2018 09:59:39 5 Caesarean Section completed Antonieta Gould [place] [facility] 01/29/2015 15:01:03 Imaging Results Imaging Date Name Status LastModified by Organiz ation Details LastModified Time 09/16/2023 XR, lumbosacral spine completed [facility] [address] [place], [address], 09/21/2023 14:21:45 09/16/2023 XR, hip, bilateral completed [facility] [address] [place], [address], 09/21/2023 14:21:45 10/12/2023 XR, foot completed [facility] [address] [place], [address], 10/14/2023 11:58:49 01/13/2024 MRI, lumbar spine, w/o contrast completed [facility] [address] [place], [address], 01/20/2024 17:35:52 03/09/2024 XR, ankle completed [email or web address] [facility] [address] [place], [address], 03/10/2024 10:00:21 03/09/2024 XR, foot completed [facility] [address] [place], [address], 03/09/2024 19:20:43 Procedure Notes None recorded. Medical Equipment None Reported. Allergies Allergen ID Allergen Name Allergen Category Reaction Reaction Severity Criticality Documentation Date Start Date Code Code System Note Provider Name and Address Organization Details Recorded Time [id number] peanut allergeni c extract food,medi cation anaphylax is moderate Not available 04/27/2014 65278 8 RxNorm Not Available Not Available Not Available Medications Name Sig Start Date Stop Date Status Note LastModified by Organization Details LastModified Time plus 27-1 mg tabs active Not Available Not Available Not Available oxycodone /acetamin ophen 5-325 mg tabs active Not Available Not Available Not Available ibuprofen 800 mg tabs active Not Available Not Available Not Available compounde d medicatio n 200 mg BID for 1 month supply 2014 active Not Available Not Available Not Avai lable norethind rea 0.35 mg tabs active Not Available Not Available Not Available metronida zole 500 mg tabs active Not Available Not Available Not Available Prescript ion - Prior Authoriza tion Request 02/03 completed Not Available Not Available Not Available ferrous sulfate 325 (65 fe) mg tabs active Not Available Not Available Not Available cyclobenz aprine 10 mg tablet TAKE 1 TABLET BY MOUTH THREE TIMES A DAY NEEDED FOR MUSCLE SPASM active Not Available Not Available No t Available amoxicill in 500 mg capsule 01/31 completed Not Available Not Available Not Available Mirena 21 mcg/24 hr (up to 8 years) 52 mg intrauter ine device Take 1 device by intraute rine route. 01/29 completed Not Available Not Available Not Available atorvasta tin 40 mg tablet TAKE 1 TABLET BY MOUTH EVERY DAY 2023 active Not Available Not Available Not Avai lable metformin 500 mg tablet TAKE 1 TABLET BY MOUTH TWICE A DAY WITH MEALS FOR 30 DAYS active Not Available Not Available No t Available Qvar 80 mcg/actua tion Metered Aerosol oral inhaler Inhale 2 puffs twice a day by inhalati on route. 11/09 completed Not Available Not Available Not Available Vitamin B-6 25 mg tablet TAKE 2 TABLETS BY MOUTH AT BEDTIME 08/13 completed Not Available Not Available Not Available cetirizin e 10 mg tablet Take 1 tablet every day by oral route as directed for 14 days. 08/27 completed Not Available Not Available Not Available azithromy dianelys 250 mg tablet TAKE 2 TABLETS BY MOUTH TODAY, THEN TAKE 1 TABLET DAILY FOR 4 DAYS 08/11 completed Not Available Not Available Not Available glyburide 5 mg tablet 11/09 completed Not Available Not Available Not Available ibuprofen 800 mg tablet one tab po tid every six to eight hours. Take with food. active Not Available Not Available No t Available Glucagon Emergency Kit 1 mg solution for injection INJECT 1 MG SUBCUTAN EOUSLY NEEDED FOR DISORDER WITH LOW BLOOD SUGAR 08/13 completed Not Available Not Available Not Available fluconazo le 150 mg tablet Take 1 tablet by oral route. 03/01 completed Not Available Not Available Not Available benzonata te 200 mg capsule TAKE 1 CAPSULE BY MOUTH THREE TIMES A DAY NEEDED FOR 5 DAYS 08/11 completed Not Available Not Available Not Available glyburide 2.5 mg tablet Take 1 tablet twice a day by oral route. 07/02 completed Not Available Not Available Not Available hydrocodo ne 5 mg-acetam inophen 325 mg tablet 06/02 completed Not Available Not Available Not Available metronida zole 0.75 % (37.5 mg/5 gram) vaginal gel Insert 1 applicat orful every day by vaginal route at bedtime for 5 days. 08/13 completed Not Available Not Available Not Available Alcohol Pads Use once daily when checking BS 08/13 completed Not Available Not Available Not Available terconazo le 0.8 % vaginal cream Insert 1 applicat orful every day by vaginal route for 3 days. 03/01 completed Not Available Not Available Not Available penicilli n V potassium 500 mg tablet Take 1 tablet twice a day by oral route for 10 days. 06/16 completed Not Available Not Available Not Available Miconazol e-3 200 mg vaginal supposito ry INSERT 1 SUPPOSIT ORY INTO THE VAGINA AT BEDTIME 08/13 completed Not Available Not Available Not Available acetamino phen 300 mg-codein e 30 mg tablet TAKE 1 TABLET BY MOUTH FOUR TIMES A DAY NEEDED FOR PAIN 01/31 completed Not Available Not Available Not Available ciproflox acin 500 mg tablet Take 1 tablet every 12 hours by oral route. 06/02 completed Not Available Not Available Not Available tramadol 50 mg tablet TAKE 1-2 TABLETS BY MOUTH TWICE DAILY NEEDED FOR PAIN 01/19 completed Not Available Not Available Not Available amoxicill in 500 mg tablet TAKE 1 TABLET BY MOUTH TWICE A DAY WITH MEALS FOR 10 DAYS 03/11 completed Not Available Not Available Not Available Vitamin tablet Take 1 tablet every day by oral route as directed for 90 days. 01/31 completed Not Available Not Available Not Available oxycodone -acetamin ophen 5 mg-325 mg tablet Take 1 tablet every 6 hours by oral route. active Not Available Not Available No t Available ceftriaxo ne 1 gram solution for injection Take 500 mg by injectio n route. 2014 active Not Available Not Available Not Avai lable Flagyl 500 mg tablet Take 1 tablet twice a day by oral route. 02/07 completed Not Available Not Available Not Available benzonata te 100 mg capsule Take 1 capsule 3 times a day by oral route as needed for 10 days. 04/12 completed Not Available Not Available Not Available hydrocort isone 1 % topical cream APPLY TO THE AFFECTED AREA(S) BY TOPICAL ROUTE TWICE DAILY 02/07 completed Not Available Not Available Not Available simvastat in 20 mg tablet Take 1 tablet every day by oral route. 02/07 completed Not Available Not Available Not Available cyanocoba lori (vit B-12) 1,000 mcg/mL injection solution Inject 1 mL every month by subcutan eous route. 08/13 completed Not Available Not Available Not Available ferrous sulfate 325 mg (65 mg iron) tablet TAKE 1 TABLET BY MOUTH EVERY DAY 01/31 completed Not Available Not Available Not Available Banophen 25 mg tablet TAKE 1 TABLET BY MOUTH AT BEDTIME 08/13 completed Not Available Not Available Not Available metformin 1,000 mg tablet Take 1 tablet twice a day by oral route. 05/30 completed Not Available Not Available Not Available lidocaine 5 % topical patch PLEASE SEE ATTACHED FOR DETAILED DIRECTIO NS active Not Available Not Available No t Available Advair Diskus 250 mcg-50 mcg/dose powder for inhalatio n INHALE 2 PUFFS BY MOUTH TWICE DAILY 03/01 completed Not Available Not Available Not Available progester one micronize d 200 mg capsule Take 1 capsule twice a day by oral route as directed for 90 days. 08/13 completed Not Available Not Available Not Available docusate sodium 100 mg capsule 01/31 completed Not Available Not Available Not Available folic acid 1 mg tablet Take 4 tablets every day by oral route. 08/13 completed Not Available Not Available Not Available hydrocort isone 2.5 % topical cream APPLY A THIN LAYER TO THE AFFECTED AREA(S) BY TOPICAL ROUTE 2 TIMES PER DAY 08/13 completed Not Available Not Available Not Available monteluka st 10 mg tablet TAKE 1 TABLET BY MOUTH EVERY DAY 01/31 completed Not Available Not Available Not Available ceftriaxo ne 500 mg solution for injection Take 500 mg by injectio n route. 2014 active [facility] 07198-96 51-4 Not Available Not Available Not Available norethind rea acetate 5 mg tablet Take by oral route for 28 days. 08/11 completed Not Available Not Available Not Available gabapenti n 100 mg capsule TAKE 2 CAPSULES BY MOUTH AT BEDTIME X1 WEEK THEN 3 CAPSULES ONCE DAILY AT BEDTIME active Not Available Not Available No t Available ergocalci ferol (vitamin D2) 1,250 mcg (50,000 unit) capsule TAKE 1 CAPSULE BY MOUTH ONCE WEEKLY 01/29 completed Not Available Not Available Not Available ibuprofen 600 mg tablet 01/31 completed Not Available Not Available Not Available cefuroxim e axetil 500 mg tablet TAKE 1 TABLET BY MOUTH TWICE A DAY FOR 10 DAYS 01/31 completed Not Available Not Available Not Available polyethyl bernardo glycol 3350 17 gram/dose oral powder 01/31 completed Not Available Not Available Not Available methylpre dnisolone 4 mg tablets in a dose pack TAKE 6 TABLETS ON DAY 1 DIRECTED ON PACKAGE AND DECREASE BY 1 TAB EACH DAY FOR A TOTAL OF 6 DAYS active Not Available Not Available No t Available albuterol sulfate HFA 90 mcg/actua tion aerosol inhaler Inhale 1 puff(s) every 4-6 hours by inhalati on route as directed for 30 days. active Not Available Not Available No t Available Naprosyn 500 mg tablet one tab po bid with food. Can try to change to as needed next week 2024 active Not Available Not Available Not Avai lable ondansetr on 4 mg disintegr ating tablet ALLOW TABLET TO DISSOLVE ON THE TONGUE ONCE EVERY 6 HOURS NEEDED FOR NAUSEA/V OMITING 08/13 completed Not Available Not Available Not Available fluoxetin e 20 mg capsule Take 1 capsule every day by oral route in the morning for 30 days. 01/30 completed Not Available Not Available Not Available fluticaso ne propionat e 50 mcg/actua tion nasal spray,simone pension [place] 1 spray every day by intranas al route. 01/29 completed Not Available Not Available Not Available metformin ER 500 mg tablet,ex tended release 24 hr TAKE 1 TABLET BY MOUTH THREE TIMES A DAY WITH MEALS 01/30 completed Not Available Not Available Not Available amoxicill in 875 mg-potass ium clavulana te 125 mg tablet Take 1 tablet every 12 hours by oral route as directed for 7 days. 04/12 completed Not Available Not Available Not Available azithromy dianelys 1 gram oral packet Take 1 packet by oral route for 1 day. 2014 active Not Available Not Available Not Avai lable tobramyci n 0.3 %-dexamet hasone 0.1 % eye drops,simone pension INSTILL 2 DROPS INTO AFFECTED EAR EVERY 6 HOURS 11/09 completed Not Available Not Available Not Available Vitamin 27 mg iron-0.8 mg tablet TAKE ONE TABLET BY MOUTH EVERY DAY active Not Available Not Available No t Available Fish Oil Concentra te 1,000 mg capsule Take 1 capsule every day by oral route. 06/02 completed Not Available Not Available Not Available insulin lispro (U-100) 100 unit/mL subcutane ous pen INJECT 20 UNITS UNDER SKIN 5 10 MIN BEFORE BREAKFAS T,32 UNITS BEFORE LUNCH & 40 UNITS BEFORE DINNER. 01/31 completed Not Available Not Available Not Available azithromy dianelys 500 mg tablet TAKE 2 TABLETS BY MOUTH A SINGLE DOSE 08/13 completed Not Available Not Available Not Available Pearl 0.35 mg tablet Take 1 tablet every day by oral route as directed for 28 days. 08/14 completed Not Available Not Available Not Available rosuvasta tin 20 mg tablet TAKE 1 TABLET BY MOUTH EVERY DAY active Not Available Not Available No t Available nitrofura ntoin monohydra te/macroc rystals 100 mg capsule TAKE 1 CAPSULE BY MOUTH TWICE A DAY 08/27 completed Not Available Not Available Not Available Asprin Ec Low Dose active Not Available Not Available Not Available OneTouch UltraMini kit 03/01 completed Not Available Not Available Not Available ferrous gluconate 324 mg (38 mg iron) tablet Take 1 tablet twice a day by oral route. 03/01 completed Not Available Not Available Not Available Symbicort 160 mcg-4.5 mcg/actua tion HFA aerosol inhaler 03/01 completed Not Available Not Available Not Available Lantus Solostar U-100 Insulin 100 unit/mL (3 mL) subcutane ous pen Inject 20 units every day by subcutan eous route at bedtime for 30 days. active Not Available Not Available No t Available B-12 Plus 5,000 mcg-100 mcg sublingua l tablet TAKE 1 TABLET BY MOUTH EVERY DAY active Not Available Not Available No t Available Asmanex Twisthale r 110 mcg/actua tion(30 doses) breath activated inhalr INHALE 1 PUFF EVERY DAY DIRECTED active Not Available Not Available No t Available Vitamin D3 50 mcg (2,000 unit) tablet Take 1 tablet every day by oral route around the clock for 30 days. 04/01 completed Not Available Not Available Not Available Calcium with Vitamin D3 600 mg (carbonat e)-10 mcg (400 unit) capsule Take 1 capsule twice a day by oral route. 08/13 completed Not Available Not Available Not Available Calcium with Vitamin D 600 mg-10 mcg (400 unit) tablet Take 1 tablet twice a day by oral route as directed . 01/31 completed Not Available Not Available Not Available Non-Drows y Allergy 10 mg tablet 02/03 completed Not Available Not Available Not Available PNV-Selec t 27 mg-1 mg tablet Take 1 tablet every day by oral route. 03/01 completed Not Available Not Available Not Available Lo Loestrin Fe 1 mg-10 mcg (24)/10 mcg (2) tablet Take 1 tablet every day by oral route as directed for 28 days. 01/09 completed Not Available Not Available Not Available Bodcaw 250 mg/mL intramusc ular oil Inject 1 mL every week by intramus cular route. 2014 active low progeste rea, this is hydroxy progeste rea caproate that is covered Not Available Not Available Not Available 28 mg iron-800 mcg tablet Take 1 tablet every day by oral route as directed . 08/13 completed Not Available Not Available Not Available vits 96-ferrou s fumarate 27 mg iron-foli c acid 800 mcg tablet active Not Available Not Available Not Available OneTouch Verio test strips USE TO TEST ONCE DAILY active Not Available Not Available No t Available mecobalam in (vitamin B12) 5,000 mcg disintegr ating tablet one tab po q d 2023 active Not Available Not Available Not Avai lable calcium 600 mg (as carbonate )-vitamin D3 20 mcg (800 unit) tablet Take 1 tablet twice a day by oral route for 30 days. 07/02 completed Not Available Not Available Not Available Linzess 145 mcg capsule Take 1 capsule every day by oral route. 08/13 completed Not Available Not Available Not Available Caltrate plus D 600 mg (carbonat e)-20 mcg (800 unit) chewable tablet Take 1 tablet twice a day by oral route. 2014 active Not Available Not Available Not Avai lable PrePlus 27 mg iron-1 mg tablet Take 1 tablet every day by oral route. 02/03 completed Not Available Not Available Not Available Vol-Plus 27 mg iron-1 mg tablet Take 1 tablet every day by oral route. 03/01 completed Not Available Not Available Not Available OneTouch Verio Flex Meter USE DIRECTED active Not Available Not Available No t Available TechLITE Pen Needle 31 gauge x 5/16 USE 1 SYRINGE 5 TIMES DAILY 01/31 completed Not Available Not Available Not Available TRUEplus Pen Needle 32 gauge x 5/32 USE TO INJECT LANTUS ONCE NIGHTLY active Not Available Not Available No t Available fluticaso ne 232 mcg-salme terol 14 mcg/actua tion breath activated powdr Inhale 2 puffs twice a day by inhalati on route. 05/30 completed Not Available Not Available Not Available Adult Aspirin Regimen 81 mg tablet,de layed release Take 1 tablet every day by oral route. 01/30 completed Not Available Not Available Not Available Ozempic 0.25 mg or 0.5 mg (2 mg/1.5 mL) subcutane ous pen injector Inject 0.5 mg every week by subcutan eous route as directed for 28 days. 02/02 completed Not Available Not Available Not Available OneTouch Ultra Blue Test Strip Take 1 strip every day by miscell. route. 10/04 completed Not Available Not Available Not Available OneTouch Delica Plus Lancet 33 gauge USE TO TEST ONCE DAILY active Not Available Not Available No t Available AltagraciaTouch Delica Plus Lancet 30 gauge USE TO TEST ONCE DAILY 06/28 completed Not Available Not Available Not Available Rybelsus 14 mg tablet TAKE 1 TABLET BY MOUTH EVERY DAY active Not Available Not Available No t Available Rybelsus 7 mg tablet TAKE 1 TABLET BY MOUTH EVERY DAY BEFORE MEALS 08/27 completed Not Available Not Available Not Available Rybelsus 3 mg tablet TAKE 1 TABLET BY MOUTH EVERY DAY BEFORE MEALS 04/01 completed Not Available Not Available Not Available Mounjaro 5 mg/0.5 mL subcutane ous pen injector INJECT 5 MG SUBCUTAN EOULSY ONCE A WEEK active Not Available Not Available No t Available Mounjaro 2.5 mg/0.5 mL subcutane ous pen injector INJECT 2.5MG SUBCUTAN EOUS ONCE WEEKLY FOR ONE MONTH *IF TOLERATE S WELL CAN INCREASE DOSE* active Not Available Not Available No t Available Vitals Date Recorded Body height Provider Name an d Address Organization Details Last Updated DateTime 10/02/2023 170.18 cm Ada Tobias MA [facility] 10/02/2023 09:47:48 Date Recorded Body mass index (BMI) Body weight Provider Name and Address Organization Details Last Updated DateTime 10/02/2023 37.4 kg/m2 261154.58 g Ada Tobias MA [facility] 0 10/02/2023 09:48:56 Date Recorded Oxygen saturation Oxygen saturation in Arterial blood by Pulse oximetry Provider Name and Address Organization Details Last Updated DateTime 10/02/2023 100 % 100 % Ada Tobias MA [facility] 10/02/2023 09:51:30 Date Recorded Heart rate Provider Name an d Address Organization Details Last Updated DateTime 10/02/2023 73 /min Ada Tobias MA [facility] 10/02/2023 09:51:33 Date Recorded Body height Provider Name an d Address Organization Details Last Updated DateTime 10/12/2023 170.18 cm LILLIAN Tavares [facility] 10/12/2023 11:07:29 Date Recorded Body mass index (BMI) Body weight Provider Name and Address Organization Details Last Updated DateTime 10/12/2023 37.4 kg/m2 969083.58 g Ada Tobias [place] [facility] 10/12/2023 11:09:25 Date Recorded Oxygen saturation Oxygen saturation in Arterial blood by Pulse oximetry Provider Name and Address Organization Details Last Updated DateTime 10/12/2023 100 % 100 % LILLIAN Tavares - [facility] 10/12/2023 11:12:04 Date Recorded Heart rate Provider Name an d Address Organization Details Last Updated DateTime 10/12/2023 77 /min LILLIAN Tavares - [facility] 10/12/2023 11:12:07 Date Recorded Body height Provider Name an d Address Organization Details Last Updated DateTime 12/17/2023 170.18 cm LILLIAN Tavares - [facility] 12/17/2023 11:28:41 Date Recorded Body mass index (BMI) Body weight Provider Name and Address Organization Details Last Updated DateTime 12/17/2023 37.4 kg/m2 172100.58 g LILLIAN Tavares - [facility] 1 11:48:10 Date Recorded Oxygen saturation Oxygen saturation in Arterial blood by Pulse oximetry Provider Name and Address Organization Details Last Updated DateTime 12/17/2023 99 % 99 % Ada Tobias [place] [facility] 12/17/2023 11:48:13 Date Recorded Heart rate Provider Name an d Address Organization Details Last Updated DateTime 12/17/2023 78 /min LILLIAN Tavares - [facility] 12/17/2023 11:48:16 Date Recorded Body height Provider Name an d Address Organization Details Last Updated DateTime 01/20/2024 170.18 cm LILLIAN Tavares - [facility] 01/20/2024 16:50:52 Date Recorded Body mass index (BMI) Body weight Provider Name and Address Organization Details Last Updated DateTime 01/20/2024 37.4 kg/m2 618884.58 g LILLIAN Tavares - [facility] 03/21/2023 16:52:00 Date Recorded Oxygen saturation Oxygen saturation in Arterial blood by Pulse oximetry Provider Name and Address Organization Details Last Updated DateTime 01/20/2024 99 % 99 % LILLIAN Tavares - [facility] 01/20/2024 16:53:27 Date Recorded Heart rate Provider Name an d Address Organization Details Last Updated DateTime 01/20/2024 80 /min Ada Tobias MA [facility] - [facility] 01/20/2024 16:53:31 Date Recorded Body height Provider Name an d Address Organization Details Last Updated DateTime 03/23/2024 170.18 cm Ada Tobias MA [facility] 03/23/2024 09:15:52 Date Recorded Body mass index (BMI) Body weight Provider Name and Address Organization Details Last Updated DateTime 03/23/2024 37.4 kg/m2 820234.58 g Ada Tobias MA [facility] - [facility] 0 03/23/2024 09:16:05 Date Recorded Oxygen saturation Oxygen saturation in Arterial blood by Pulse oximetry Provider Name and Address Organization Details Last Updated DateTime 03/23/2024 99 % 99 % Ada Jatinder LILLIAN PA [facility] 03/23/2024 09:21:08 Date Recorded Heart rate Provider Name an d Address Organization Details Last Updated DateTime 03/23/2024 84 /min Ada Jatinder [facility] 03/23/2024 09:21:11 Date Recorded Body temperature Provider Name a nd Address Organization Details Last Updated DateTime 03/23/2024 98.2 [degF] Ada Tobias MA PA - [facility] 09:21:15 Date Recorded Systolic blood pressure Diastolic blood pressure Provider Name and Address Organization Details Last Updated DateTime 10/02/2023 116 mm[Hg] 70 mm[Hg] Ada Tobias LILLIAN CUEV[facility] - [facility] 10/02/2023 09:51:22 Date Recorded Systolic blood pressure Diastolic blood pressure Provider Name and Address Organization Details Last Updated DateTime 10/12/2023 116 mm[Hg] 70 mm[Hg] Ada Tobias LILLIAN PA - [facility] 10/12/2023 11:12:01 Date Recorded Systolic blood pressure Diastolic blood pressure Provider Name and Address Organization Details Last Updated DateTime 12/17/2023 120 mm[Hg] 78 mm[Hg] Ada Tobias MA [facility] 12/17/2023 11:47:54 Date Recorded Systolic blood pressure Diastolic blood pressure Provider Name and Address Organization Details Last Updated DateTime 01/20/2024 122 mm[Hg] 80 mm[Hg] Ada Tobias MA [facility] 01/20/2024 16:53:19 Date Recorded Systolic blood pressure Diastolic blood pressure Provider Name and Address Organization Details Last Updated DateTime 03/23/2024 118 mm[Hg] 76 mm[Hg] Ada Tobias MA PA - [facility] 03/23/2024 09:20:45 Social History Question Answer Notes LastModified by Organizat ion Details LastModified Time Tobacco Smoking Status Never Smoker Antonieta Gould MA null, [place] - [facility] 04/27/2014 17:41:05 Do You Have An Advance Directive? No [email or web address] Information not available 04/27/2014 What Is Your Level Of Alcohol Consumption? None Information not available 05/04/2014 If You Are , What Was Your Level Of Alcohol Consumption Prior To ? Occasional [email or web address] Information not available 04/27/2014 How Many Years Have You Consumed Alcohol? 0 [email or web address] Information not available 01/29/2015 Is Anesthesia Consult Planned? Yes [email or web address] Information not available 04/27/2014 Plan No Information no t available 04/27/2014 Is Blood Transfusion Acceptable In An Emergency? Yes [email or web address] Information not available 04/27/2014 What Is Your Level Of Caffeine Consumption? None [email or web address] Information not available 04/27/2014 Live With Cats/exposure To Cat Litter No [email or web address] Information not available 04/27/2014 How Much Tobacco Do You Chew? None [email or web address] Information not available 04/27/2014 Are You Currently Employed? Yes [email or web address] Information not available 04/27/2014 What Type Of Diet Are You Following? REGULAR [email or web address] Information not available 04/27/2014 Which Illicit Or Recreational Drugs Have You Used? Pt Denies [email or web address] Information not available 08/16/2014 Do You Or Have You Ever Used E-cigarettes Or Vape? Never Used Electronic Cigarettes Information not available 11/29/2019 Education 12 [email or web address] Information no t available 04/27/2014 What Is The Highest Grade Or Level Of School You Have Completed Or The Highest Degree You Have Received? 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 No [email or web address] Information not available 04/27/2014 Frequent Air Travel No [email or web address] Information not available 04/27/2014 Illicit Drugs Pre- Pt Denies [email or web address] Information not available 08/16/2014 How Many Years Have You Used Illicit Or Recreational Drugs? 0 [email or web address] Information not available 08/16/2014 Live Alone Or With Others? Alone [email or web address] Information not available 04/27/2014 Marital Status Single [email or web address] Informatio n not available 04/27/2014 What Was The Date Of Your Most Recent Tobacco Screening? 03/23/2024 Information not available 03/23/2024 How Many Children Do You Have? 3 Information not available 08/13/2020 Do You Use Protection During Sex? Usually [email or web address] Information not available 09/14/2018 What Is Your Relationship Status? Information not available 04/01/2023 Do You Use Your Seat Belt Or Car Seat Routinely? Yes Information not available 08/13/2020 Seat Belts Used Routinely Yes [email or web address] Information not available 04/27/2014 Are You Sexually Active? Yes [email or web address] Information not available 04/27/2014 Do You Have Smoke And Carbon Monoxide Detectors In Your Home? Yes Information not available 04/27/2014 Are You Passively Exposed To Smoke? No Information not available 04/27/2014 Do You Or Have You Ever Used Smokeless Tobacco? Never Used Smokeless Tobacco Information not available 11/29/2019 How Much Tobacco Do You Smoke? No Information not available 05/04/2014 Smoking Pre- No [email or web address] Information not available 04/27/2014 General Stress Level Low [email or web address] Information not available 06/27/2015 Do You Feel Stressed (tense, Restless, Nervous, Or Anxious, Or Unable To Sleep At Night)? [id number] Information not available 04/01/2023 Do You Use Any Illicit Or Recreational Drugs? No Information not available 08/13/2020 Do You Use Sunscreen Routinely? No [email or web address] Information not available 04/27/2014 Supplements Vitamin And Caltrate D 600 Mg BID Starting Today 04/27/2014 [email or web address] Information not available 04/27/2014 Has Tobacco Cessation Counseling Been Provided? No Information not available 08/13/2020 On What Date Was Tobacco Cessation Counseling Provided? 03/23/2024 Information not available 03/23/2024 How Many Years Have You Smoked Tobacco? 0 [email or web address] Information not available 08/16/2014 Do You Or Have You Ever Used Any Other Forms Of Tobacco Or Nicotine? No Information not available 08/13/2020 Sex: Female Functional Status Question Answer Note LastModified by Organization D etails LastModified Time What is your exercise level? None [email or web address] Information not available 04/27/2014 Mental Status None recorded. Family History Relationship Description Onset Age of this Age Resolved Age Notes LastModified by Organization Details LastModified Time Mother Malignant tumor of cervix [facility] Not available 08/06 11:30:11 Maternal Grandmother Diabetes mellitus [email or web address] Not available 08/06 11:30:11 Paternal Grandmother Diabetes mellitus [email or web address] Not available 08/06 11:30:11 Medical History Condition Response Coronary Artery Disease N Blood Diseases N Kidney Cyst N Hyperthyroidism N Blood Transfusion N MRSA N Blood disorders N Emphysema N COPD N Blood Clots N Depression N Pneumonia N Peripheral Arterial Disease N Premature N Edema N TIA N Headaches/Migraines N Anxiety Disorder N Obesity N Infertility N Polyps N Acid Reflux (GERD) N Hematuria N Stroke N Neck Injury N Polio N Hospital Admission other than N Neurologic Disorder N Other Sleep Disorders N Rheumatoid Arthritis N Fibromyalgia N Abdominal Aortic Aneurysm Repair N Kidney Disease N Heart Conditions N Heart Disease/Heart Problems N Hospitalizations N Brain Tumors N Acne N Eating Disorder N Skin Problems N Constipation N Meningitis N Tuberculosis N Cerebral Palsy N Myocardial Infarction N Asthma N Substance Abuse N Peripheral Vascular Disease N Vertigo N Sleep Disorder N Cirrhosis N Pulmonary Embolism N Chicken Pox Y [place] Use Past or Present N Hematologic Disease N Anxiety/Depression N Thyroid Disease N Colon Cancer N Glaucoma N Lung Disease N Developmental or Behavioral Disorders N Bipolar N Pacemaker N Diverticulitis/Diverticulosis N Anesthesia Complications N Orthopedic Problems N Orthotics N Head Injury/Concussion N Congenital Anomalies N Mcpherson Bite N Chronic Kidney Disease N Endometriosis N Liver Disease N Dialysis N Schizophrenia N Speech Delay N Chronic Obstructive Pulmonary Disease N Parkinson's Disease N Thyroid Problems N GI Problems N Developmental Delay N Anemia N Immune System Disorder N Multiple Sclerosis N Colon Polyps N Heart Attack ([place]) N Diabetes Y Cardiomyopathy N Blood Transfusions N Heart Problems/Murmur N Eye Trauma N Congestive Heart Failure (CHF) N Valvular Heart Disease N Hyperlipidemia N Double Vision N Abuse/Domestic Violence N Hepatitis B N Lupus N Epilepsy/Seizures N Reflux/GERD N Aneurysm N Bronchitis N Heart Disease N Hypertension N Pre-Eclampsia N Heart Failure N Other Y Gout N High Blood Pressure N Atrial Fibrillation N Kidney Stones N Head Trauma/Injury N Congenital Heart Disease N Spine Problems N Gastrointestinal Disease N Lung Mass N Sinusitis N Obstructive Sleep Apnea N Muscle, Joint, or Bone Problems N Autoimmune disease N Vision or Eye Problems Y Arthritis N Blood Clot N Cancer N Seasonal allergies N Leg or Foot Ulcers N Raynaud's Disease N Aortic Aneurysm N Arrhythmia N Headaches N Heart Problems N Ambloypia N Ear or Hearing Problems N Hyperparathyroidism N Migraines N Artificial Joints N Kidney or Bladder Problems N NSAID Use N Encephalitis N PTSD N Ulcers N Prostate Hypertrophy N Bleeding Disorder N AIDS/HIV N Urinary Tract Infection N Back Problems N Allergies Y Atrial Flutter N GERD/Reflux N Hepatitis N Autism Spectrum Disorder (ASD) N Breast Cancer N Hernia N Hypothyroidism N Breast Problem N Genitourinary Disease N Deep Vein Thrombosis N Varicose Veins N Cystic Fibrosis N Hearing Loss N Developmental Problems N Carotid Disease N Vitamin D Deficiency N ADHD N Bladder or Kidney Problems N High Cholesterol N [place] N Valvular Abnormalities N Psychiatric/Mental Health Condition N Organ Transplant N Foot Deformity N Allergies/Hayfever N Dyslipidemia N Hyponatremia N Diabetic Eye Disease N Osteoporosis/Osteopenia N Back Pain N Proteinuria N Mental Illness N Neurological Problems N Ovarian Cancer N Bedwetting N Seizures/Epilepsy N Kidney Failure N Ocular trauma N Dementia N Diverticulitis N Sleep Apnea N Mental Problems N Warfarin Management N Osteoporosis N Gynecological History Statement/Question Response Abnormal Pap N Date of LMP 05/12/2023 On BCP's at Conception? N STIs/STDs Yes HPV Vaccine Y Most Recent Mammogram Age at Menarche 11 Current Control Method None Age at First Child 19 Sexually Active? Y Menses Monthly N Date of Last Pap Smear 06/15/2018 Sexual Problems? N LMP Approximate Desired Control Method Partner Vas ectomy Obstetrics History GPAL:G 3 P 3 0 0 3 Type Value Multiple Births 0 Full Term 3 Induced 0 Spontaneous 0 Premature 0 Living 3 Ectopics 0 Total 3 Immunizations Vaccine Type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 rhinorrhea , sore throat, and sinus headache x 2-3 days. Only tried OTC tylenol and ibuprofen. Admits to seasonal allergies, does not take allergy medication .- educated patient that her symptoms are likely viral, continue with supportive care for now and symptoms should continue to improve over the next week- will send augmentin to pharmacy, encouraged her to hold off on medication unless symptoms do not continue to improve- will send medication for her cough- Drink lots of fluids, whatever you like except for alcoholic beverages. - Run a cool-mist humidifier in your room at night.- For sore throat, gargle warm salt water.- Get extra rest and do not over-exert yourself. [id number] MD Libertad Montes (Adult Med) [address] [place] [address] [phone] 0 04/12/2021 16:06:42 04/15/2021 11:06:50 Atypical chest pain 332301057 R07.89 Her chest pain is both exertional and at rest and although she has reproducib le chest pain, she has palpitatio ns with multiple risk factors.CX RCardiolog y input Intermitte nt palpitations 846641849 R00.2 Impaired f asting glycemia 888876079 R73.01 [id number] JANNET RIDER (Adult Med) [address] [place] [address] [phone] 0 06/28/2021 14:24:10 07/01/2021 08:56:13 Anemia 883830562 D64.9 Hx of iron def. anemia in the pastHemogl obin 10.9 on 08-13-2020- check CBC, iron, TIBC, ferritin Diabetes mellitus 959436 09 E11.9 She has a history of gestationa l diabetes and T2DM.Last delivery was in .HbA 1c was 5.8 on 08-13-2020 She has been taking metformin 3-4 times a week and checks her blood sugars 2x/day. Fasting blood sugars range from 110-135 in the last two with one reading of 157.She has been exercising regularly, has cut out fast food and candy. Also recently started a low carb diet and is decreasing her portion sizes. She uses an sahil to track her carbs. 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 It occurs when she is laying down/sitti ng/standin g for extended periods and is quickly relieved with movement and stretching . Has had these symptoms since she was 12 years old. Used to wear a boot for dorsiflexi on and saw a PT as a child. She was told that she had leg length discrepanc y.- ortho referral Intermitte nt palpitations 545651517 R00.2 Two months ago month she was experienci ng intermitte nt chest pain and palpitatio ns. Was seen by Dr. Arambula. She saw cardiology in April and had a potline monitor- NSR. They believe her symptoms are due to anxiety attacks. She has a stress test and ultrasound scheduled in a few weeks.- cardiology workup thus far has been normal, sx likely due to anxiety- will complete cardiology workup (stress test and US) Pain of left calf 415020 8139 595529 M79.662 Daily numbness tingling and pain in left calf since childhood years. It occurs when she is laying down/sitti ng/standin g for extended periods and is quickly relieved with movement and stretching . Has had these symptoms since she was 12 years old.Used to wear a boot at night for dorsiflexi on and saw a PT as a child. She was told that she had leg length discrepanc y but never followed up with additional visits or referrals- normal calf exam today- Old records showed evidence of normal xray of entire LE bilaterall y, venous US, and hip xrays. No notes about reason for brace or certain diagnosis- ortho referral given for malalignme nt of LE- will get xray of ankle and tib/fib on left to restart possible work-up [id number] JANNET RIDER (Adult Med) [address] [place] [address] 01/29/2022 13:58:01 01/31/2022 10:38:50 Acute pharyngitis 027140286 J02.9 Complainin g of sore sore throat and odynophagi a x 5 days. No other symptoms present.Ki ds have been recently sick in the past two weeks with RSV and the flu. Patient has been vaccinated for influenza this season. She also reports right sided ear flutter associated with her sore throat but it has since resolved.- strep negative in the office- bacterial (only sore throat with no other symptoms) vs viral (sick contacts and less than 7 days)- try supportive care, lots of water, salt water gargles, throat lozenges, etc.- medication s prescribed , if no improvemen t in 2 days, start taking Morbid obesity 697796459 E66.01 Advised decreased portion sizes, good food choices, limited eating out or fast food and eliminate soda and juice from diet. Advised physical activity daily and offered encouragem ent to continue with positive changes made so far. Diabetes mellitus 847546 09 E11.9 She has a history of gestationa l diabetes and T2DM.Last delivery was in .HbA 1c was 7.1 on 07/04/21 She has been taking metformin 2 times a day and checks her blood sugars 2x/day.She has been exercising regularly, has cut out fast food and candy. Also recently started a low carb diet and is decreasing her portion sizes. She uses an sahil to track her carbs. - continue Metformin 500 mg, consider GLP-1 medication instead to help with weight loss and lower BS readings- continue with lifestyle changes- Instructed patient that she is due for HA1c and patient agrees to set that up soon when supplies are back in the office- continue to monitor [id number] JANNET BARRY (Adult Med) [address] [place] [address] [phone] 03/11/2022 12:13:17 04/01/2022 13:41:10 Streptococcal sore throat 36776701 J02.0 Sore throat and odynophagi a x 2 days. Strep positive in office today. Will start abx. Discussed supportive care with cold, thin beverages, salt water gargles, throat lozenges, OTC analgesics . RTC if symptoms do not improve. [id number] MD Libertad Montes (Adult Med) [address] [place] [address] [phone] 0 06/16/2022 12:40:45 06/17/2022 09:07:11 Diabetes mellitus 16191275 E11.9 Medication monitoring 39 8303261 Z51.81 Asthma 601521918 J45.90 9 Asthmatic bronchitis 405 261695 J45.909 Persistent cough 7266779 02 R05.3 Vitamin D deficiency 347 63636 E55.9 [id number] JANNET RIDER (Adult Med) [address] [place] [address] [phone] 0 08/11/2022 15:17:43 08/12/2022 11:25:06 Diabetes mellitus 10538319 E11.9 She has a history of gestationa l diabetes and T2DM.Last delivery was in 07/2020.HbA 1c was 10.7 (08/11/22), 7.1 on (07/04/21). She has been taking metformin 1 time a day, but admits to not taking every day of the week- Might take 4 out of the 7 days a weekShe admits to not exercising and eating as healthy the last 6 monthsDoes not take her blood sugars at home d/t losing her machine - Increase Metformin 500 mg BID; discussed the importance of taking medication every day- Continue with lifestyle changes and healthier diet- F/u 1 month; possible add another medication at next visit Asthma 588967446 J45.90 9 History of asthma; well controlled at this time- Continue albuterol inhaler prn- Continue Asmanex Twisthaler daily Vitamin D deficiency 347 01418 E55.9 History of vitamin D deficiency 17.9 (07/04/2021) - Continue vitamin D3 tablet daily Mixed anxi ety and depressive disorder 355759002 F41.8 New onset mood changes within the last 6 monthsUnsu re what has started this, but could be just stress of being a mom She states in the last 6 months she has lost energy, does not feel like getting out of bed, heart racing, increased stress and trouble sleeping at night. She says that she cannot shut her mind off at night.PHQ 2/9 was negative in office today (0 out of 27) - Agreeable to starting SSRI; discussed common AE including worsening depression /anxiety. Call if any prob w/ meds. Call or go to ER if she feels she is a danger to self or others.- started her with fluoxetine 20 mg, patient aware to be patient because it takes 4-6 weeks for drug to reach full efficacy, and do not stop drug without contacting us first- f/u in 1 month Obesity 549785598 E66.9 Advised decreased portion sizes, good food choices, limited eating out or fast food and eliminate soda and juice from diet. Advised physical activity daily and offered encouragem ent to continue with positive changes made so far. [id number] JANNET RIDER (Adult Med) [address] [place] [address] [phone] 09/16/2022 08:45:21 09/17/2022 14:07:45 Obesity 765192803 E66.9 Lost 6 pounds since last visit, working on her diet due to diabetes and fluoxetine is helping to make her feel more motivated- Advised decreased portion sizes, good food choices, limited eating out or fast food and eliminate soda and juice from diet. Advised physical activity daily and offered encouragem ent to continue with positive changes made so far. Diabetes mellitus 234205 09 E11.9 She has a history of gestationa l diabetes and T2DM.Last delivery was in 07/2020.HbA 1c was 9.9 today(09/16), 10.7 (08/11/22), 7.1 on (07/04/21). Began taking metformin 1 time a day. Increased to 500 BID, had GI upset for ~2 days before subsided. Has been much more consistent and began diet measures at home as well - Increase Metformin 500 mg TID; warned that diarrhea will probably return and resolve again, but if doesn't she may return to BID dosing- Continue with lifestyle changes and healthier diet- F/u 2 month; possible add another medication at next visit Mixed anxi ety and depressive disorder 270674719 F41.8 Prior complaints of decreased energy, increased want/need for sleep, heart racing, increased stress and trouble sleeping at night. She says that she cannot shut her mind off at night. Began fluoxetine 20mg capsule 1 month ago, reports now sleeping at night and has more energy to complete tasks and socialize. However, is experienci ng hair loss. PHQ 2/9 was negative in office today (0 out of 27) -discussed improvemen t in symptoms vs SE of hair loss. Made decision to remain on medication and see if hair loss subsides.- if not, consider switching to another SSRI [id number] JANNET RIDER (Adult Med) [address] [place] [address] 01/30/2023 08:23:10 02/02/2023 14:16:17 Diabetes mellitus 70060386 E11.9 She has a history of gestationa l diabetes and T2DM.HbA1c was 10.5 in the hospital ( 3), 9.9 (09/16/2022 ), 10.7 (08/11/22), 7.1 (07/04/21).W as taking Metformin 500 mg BID before hospital admit Started on insulin 20 units in the hospital, BS at home has been decreasing and now around 130s in the morning. Still taking Metformin BID. Not currently on statin. - c/w metformin 500 mg BID- c/w LA insulin 20 units at night for now, consider trying to come off this medication in the future once she is better controlled with non-insuli n therapy- start GLP-1, will try Ozempic, take 0.25 mg once weekly x 1 month and then increase up to 0.5 mg- Continue with lifestyle changes and healthier diet- start statin due to recent hx of possible TIA and uncontroll ed diabetes- f/u in 1 month for repeat HgbA1c Obesity 324290367 E66.9 37.4- Advised decreased portion sizes, good food choices, limited eating out or fast food and eliminate soda and juice from diet. Advised physical activity daily and offered encouragem ent to continue with positive changes made so far. Patent foramen ovale 204 616803 Q21.12 Echo in the hospital showed patent PFO, recommende d f/u with cardiology as an outpatient to discuss possible closure- discussed PFO diagnosis with patient and increased risk for stroke/TIA - referral placed today Transient cerebral ischemia 189629113 G45.9 Presented to [facility] on 01/14/2023 for headache, left arm numbness, left leg weakness and nausea. CT scan in [facility] came was negative, TKA administer ed. Transferre d to [facility] for further work-up. MRI brain normal. Symptoms improved while hospitaliz ed.TTE showed PFO, no cardiology referral was given upon discharge. No clear diagnosis of stroke was given to patient at time of hospital stay or upon discharge. Discharge home with baby aspirin. Since hospital stay, continues to have left arm and left leg paresthesi as and weakness. Admits to tension-li ke headaches, tinnitus of the left ear, and dizziness with position changes. States her mood is overall stable, admits this hospital admission did scare her but feels like her mood is in a good place. - discussed her hospital stay in length and reviewed her imaging studies with patient- neurology referral placed to help give more a definitive diagnosis- concern for CVA due to continued residual symptoms- continue with baby aspirin, start statin- keep BP controlled , work on lowering BS levels with new medication - cardiology referral for patent PFO- avoid any estrogen type control in the future Neuropathy 382895819 G62 .9 Hospitaliz ed at [facility] from 01/14/2023 - 3 for possible TIA/CVASin ce hospital stay, continues to have numbness and tingling in the left lower leg and foot with mild weakness, symptoms worse at night when sleeping. Notes this pain is different compared to her sciatica pain. Also having continued mild left arm paresthesi as and weakness.O n PE: mildly decreased strength in both left arm and leg- residual symptoms concerning for CVA diagnosis- start gabapentin at night for symptoms- work on resistance training to regain strength Elevated blood-pressure reading without diagnosis of hypertension 442468038 R03.0 BP elevated in the hospital during recent admit for possible TIA/stroke BP today: 116/70- BP kit provided to patient today through her insurance- check BP daily or when having any concerning symptoms, keep systolic less than 140 and diastolic less than 90 Tension-type headache 39 0736532 G44.209 Complainin g of intermitte nt bilateral HAs, twice a week still since recent hospital stay. The headaches are usually temporal or occipital in location, agrees that it can feel like a tight headband around her head. Has been improving with tylenol as needed.On PE: trapezius muscles tight and stiff bilaterall y- symptoms and history sound mostly like tension headaches- continue with supportive care including topical medication s, massage, OTC medication , and stretching - if symptoms get worse, let me know [id number] MD Libertad Sheridan (Adult Med) [address] [place] [address] [phone] 0 03/06/2023 12:17:21 03/09/2023 15:40:38 Mass of subcutaneous tissue of back 1308661074 23435 R22.2 bilateral tender subcutaneo us masses. Consider lipomas. General surgery consult for possible excision. Tramadol for pain control in the meantime. Concerned about GI toxicity with her taking anti-infla mmatory and aspirin. Has follow up with me the end of March. [id number] Dany Mendez MD [facility] [address] [place] [address] 03/12/2023 13:54:55 03/17/2023 09:15:53 Lipoma of lower back 714814262 D17.1 patient with soft tissue mass c/w lipoma. Less likely severe muscle knots, though this seems unlikely. Amenable to resection. Risks include bleeding, wound infection, and a slight risk of recurrence . Have also discussed the small possibilit y of a negative operation, as well as the possibilit y that not all of her back pain issues are being caused by these lipomas. Will proceed to the OR as soon as is convenient . Patient in agreement with the plan of care. [id number] MD Libertad Sheridan (Adult Med) [address] [place] [address] [phone] 0 04/01/2023 12:01:58 04/02/2023 11:25:18 Type 2 diabetes mellitus 89907640 E11.9 Continue present medication . Will return for fasting blood work to assess patient's control of diabetes. Recently saw opthalmolo gist and did not have eye diseasse. Will follow up in two months and will bring fasting blood glucose levels. Lipoma of back 744180320 D17.1 Saw surgeon. Recommende d surgical excision. Waiting to follow up with neurologjennifer brunson and cardiologdave calzada. Taking Tramadol prn for pain. Patent foramen ovale 204 160682 Q21.12 Is rescheduli ng appointmen t with cardiologdave calzada. They want to schedule surgical repair. Transient cerebral ischemia 406198234 G45.9 Some uncertaint y about diagnoses. Possibly migraine. Had to reschedule appointmen t with neurologjennifer brunson. I will review hospital records. Continue aspirin and statin. Migraine 41727966 G43.90 9 Continue Tramadol as needed. Will discuss with neurologjennifer brunson. Paresthesi a of lower extremity 000965765 R20.2 chronic paresthesi a of left lower extremity since prior to cerebral ischemia. Advised her to discuss with neurologjennifer brunson. Will follow up after neurology appointmen t. [id number] MD Libertad Sheridan (Adult Med) [address] [place] [address] 0 05/29/2023 12:16:49 06/01/2023 15:44:44 Paresthesia of lower extremity 718379221 R20.2 Continues with paresthesi a of left lower extremity. Neurologjennifer t told her to follow up with PCP. Will proceed with nerve conduction studies and EMG. Type 2 linnea betes mellitus 42433921 E11.9 Recent Hemoglobin A1C 7.1. Due to her young age we discussed a goal hemoglobin A1C of 6. Will increase Rybelsus to 14 mg. Continue periodic fasting acu checks. Will follow up in three months to repeat fasting hemoglobin A1C. Patent foramen ovale 204 383704 Q21.[address] Ariasin g if it will require surgical repair. Migraine 80012967 G43.90 9 Followed by neurologjennifer brunson. Hyperlipidemia 87508577 E78.5 Lipid panel was very good but LDL was 80. Goal LDL is seventy. Consider increasing statin. At follow up discuss increasing Atorvastat in to 80 mg. [id number] ROMAINE WILKS (Adult Med) [address] [place] [address] [phone] 0 06/01/2023 10:07:41 06/05/2023 11:07:07 Exposure to SARS-CoV-2 234180498 Z20.797 [id number] MD Libertad Sheridan (Adult Med) [address] [place] [address] 08/28/2023 12:20:57 08/31/2023 15:18:26 Body mass index 30+ - obesity 547668283 Z68.37 Hip pain 47019357 M25.55 9 Bilateral hip pain on exam, most significan t on the right side. Will proceed with xrays. If normal consider RAEGAN. Sciatica 81580366 M54.31 Right sided sciatica. Neurology exam is normal. Will get xray LS spine. Left leg p eripheral neuropathy 4027248075 02553 G62.9 EMG and nerve study were normal. The neurologis t she saw suggested she follow up with primary care regarding this problem, but that may have been the vascular neurologis t she saw. We will increase the dose of the Gabapentin to see if it helps her symptoms. It may be reasonable to refer her to another neurologis t for another opinion. I am gettng an xray of her back. If it is normal I will discuss the option of another neurology referral to her. Will check a B12 since patient has been on Metformin and this can cause a B12 deficiency which can cause peripheral neuropathy symptoms. Type 2 linnea betes mellitus 42748749 E11.9 Has not taken the increased dose of Rybelsus the last few weeks. She will take it regularly and will repeat Hemoglobin A1C in a few months. Gets yearly eye exams. Believes she is due in March. Patent foramen ovale 204 893266 Q21.[address] Peace cheng if it will require surgical repair. Migraine 78145416 G43.90 9 Had possible TIA symptoms. I reviewed neurology note and it seems he felt her symptoms were due to a migraine. For the time being she will continue a baby aspirin a day, but I will try to reach out to him to find out if he feels that is necessary. [id number] MD Libertad Sheridan (Adult Med) [address] [place] [address] 10/02/2023 09:45:33 10/23/2023 08:20:55 Body mass index 30+ - obesity 727327175 Z68.37 Has been taking Rybelsus 14 mg for several months and we are not seeing a significan t weight gain. Will discuss alternativ es at follow up. Low back pain 591047329 M54.50 When she has pain is is episodic, which is more consistent with disc disease then hip osteoarthr itis, but it may be a combinatio n of both problems. Will have her start physical therapy which will definitely help her back. She has no neurologic changes on exam. She can continue Tramadol as needed and recommende d she avoid all aggravatin g activity. Also advised her to continue to work on weight loss. Will check an RAEGAN to rule out auto immune issues due to arthritis at a young age. Leg length inequality 45 139744 M21.70 History of leg length discrepanc y. Will refer her to podiatry to see if they can fit her with some orthotics. Osteoarthr itis of bilateral hip joints 9315111771 27680 M16.0 X-rays show moderate bilateral osteoarthr itis. We will have her see an orthopod to get their opinion as to how much of her symptoms are related to the osteoarthr itis in her hips. [id number] MD Libertad Sheridan (Adult Med) [address] [place] [address] [phone] 0 10/12/2023 11:06:59 10/13/2023 13:13:14 Pain in left foot 7407383291 03253 M79.672 Trauma with pain over left fifth toe and fifth metatarsal . Will get xray to look for fracture. Will treat with Naprosyn BID with food and surgical shoe. Will have her matt tape to adjacent toe. Will give additional directions pending result of x-ray. [id number] MD Libertad Sheridan (Adult Med) [address] [place] [address] [phone] 0 12/17/2023 11:21:52 12/22/2023 10:00:46 Type 2 diabetes mellitus 87965416 E11.9 Is on the maximum dose of Rybelsus and has not seen any appreciabl e weight loss. I also feel that her diabetes is not as tightly controlled as I would like it to be, given her young age. I would like her Hemoglobin A1C to be closer to 6.5. I am going to stop her Rybelsus and try switching her to Mounjaro and see if we get better results. I reviewed the side effects of abdominal pain and nausea. We discussed the risks of pancreatit is and thyroid cancer. Patient has no personal or family history of either of these things, and would like to try the medication . She will follow up in three months. She will let me know if she has any abdominal pain. Low back pain [id number] M54.50 Multiple episodes of acute low back pain 11/09 which is debilitati ng and has her bed ridden for days. She has completed physical therapy which did not seem to help at all and right after ng she had another episode. Her symptoms are consistent with episodes of disc herniation . Will proceed with MRI of LS spine. Mass of back [id number] R 22.2 Had tender mass right lower back consistent with lipoma, and now has a second one. Will proceed with MRI for further evaluation . Pain in left foot [id number] 4415 91812 M79.672 Trauma with pain over left fifth toe and fifth metatarsal . Will get xray to look for fracture. Will treat with Naprosyn BID with food and surgical shoe. Will have her matt tape to adjacent toe. Will give additional directions pending result of x-ray. [id number] Farideh Ortiz MD [facility] ([facility]) [address] [place] [address] [phone] 01/20/2024 16:50:23 01/26/2024 11:39:47 Annular tear of lumbar disc [id number] M51.369 Will refer her to Orthopedic surgeon to discuss treatment options. She has been dealing with recurrent episodes of this pain for years, and given the annular tear on the MRI, I believe surgical interventi on may be the best option for resolution of this. She would like to try injections to see if it helps, but also meet with the orthopedic surgeon to hear their thoughts on recommende d treatment. Will refer to pain management and orthopedic surgery. Will have her stop her evening Gabapentin and try a muscle relaxer at night. She can increase her Ibuprofen dose to 800 mg TID with food. She can take Tylenol in between if it is needed. Type 2 linnea betes mellitus [id number] E11.9 Will increase Mounjaro to 5 mg subcu weekly. Will Follow up in three months. Asked her to keep track of her fasting sugars. If nausea is worse with higher dose asked her to let me know. Last blood work was in April. [id number] Farideh Ortiz MD [facility] ([facility]) [address] [place] [address] [phone] 03/23/2024 09:14:57 03/23/2024 09:45:16 Closed fracture of lateral malleolus [id number] S82.65XA Rest, ice, and elevate. Can continue Naprosyn BID with food for another week and then try to decrease as needed. Will repeat the x-ray to look for healing. Continue wearing the boot and using crutches to avoid weight bearing. Follow up in two weeks. Original x-ray said fracture was of the medial malleolus, but her exam is consistent with fracture of the lateral malleolus. Will ask radiology to review the x-ray and send an amended report if necessary. Annular te ar of lumbar disc [id number] M51.369 Saw Orthopedic s and Pain management . Is going to be getting an injection. Increased Gabapentin and advised to take it TID. On the weekend takes muscle relaxer in the evening instead of Gabapentin . Health Concerns Section Related Observation LastModified by Organization Detai ls LastModified Time None Recorded Concern Status LastModified by Organization Details LastModified Time None Recorded Advance Directives Directive N: Payers Encounter Date Sequence Insurance Name Policy Number Policy Mendoza Covered Member ID Mendoza Member ID Guarantor Name 10/02/2023 1 [facility] (MEDICAID HM) [id number] 0003 Lilo Mane [id number] Charis Mane 10/12/2023 1 [facility] (MEDICAID HMO) [id number] 0003 Lilo Mane [id number] Charis Mane 12/17/2023 1 [facility] (MEDICAID HMO) [id number] 0003 Lilo Mane [id number] Charis Mane 01/20/2024 1 [facility] (MEDICAID HMO) [id number] 0003 Lilo Mane [id number] Charis Mane 03/23/2024 1 [facility] (MEDICAID HMO) [id number] 0003 Lilo Mane [id number] Charis Mane Notes Date Note Type Note Provider Name and Address Organization Details Recorded Time 10/02/2023 text/html here for back pa in, woke early Thursday morning with significant pain, this happened after was playing with the kids Thursday night, when does more things and more active notices it more, in the mornings does thirty minutes walking, tries to walk at night as well, when more active with the kis has more problems, these issues are episodic, pain in the lower back and sometimes shoots down right side, does heating pad, aggravated by lifting laundry, cannot stand for very long, cannot mop or sweep, no weakness in leg muscles, no generalized numbness, started B12 pills used Tramadol the last two days and it is helping, when gets flare ups down for two days, has been told left leg a little shorter than right, Farideh Ortiz MD Attn: Accounting[address] , [place], [address], [facility] 10/02/2023 13:27:56 10/12/2023 text/html injury Thursday ni ght, going from kitchen to living room, hit left foot, next morning woke up and looked like nail was coming off, it was bleeding, chasing kids around, hit foot again, it is really painful, called Urgent Care, Farideh Ortiz MD Attn: Accounting[address] , [place], [address], [facility] 10/12/2023 11:51:41 12/17/2023 text/html follow up, side of left foot has been hurting, side of foot hurts to the touch, slight swelling, no redness, aching every once in awhile, not waking her at night, checking sugars about twice a week, fasting 120, last saw eye software application tester Mar 2023, back is still hurting, did six weeks of PT, more mindful about what she is doing with her back, none of this has helped, had another flare up this past after completed PT, was cooking and washing dishes, felt a sharp pain in right lower back, had to stop doing what she was doing, pain was severe, Thursday woke up and could barely walk because if walk feels like something is stretching the bones on the right side, couldn't lift legs because felt like something would be pulled apart, felt like back labor pain, so tight like something is going to pull apart, pain 9 out of 10, all functioning stops when this happens, no tingling or numbness or weakness, no loss of bowel bladder control, no family history or personal history of pancreatitis or thyroid cancer Farideh Ortiz MD Attn: Accounting, [address] , [place], [address], [facility] 12/17/2023 14:03:49 01/20/2024 text/html here for back pa in, started cleaning on the floor, was cleaning up and had been standing for a long period of time, sat down for about thirty minutes, was reaching, felt pressure in lower back, down both legs but mostly left, right lower back hurts most and left leg, mostly to calf, numbness only calf and sometimes to great toe, left side a little weak, alternating Ibuprofen 400 mg and Tylenol, Gabapentin, heat and cold, Is taking Mounjaro 2.5 mg once a week, has not been loosing weight, not sure what fasting glucose is because has not been checking lately. Some nausea first thing in the morning the day after the injection, but that resolves quickly and is not significant. Farideh Ortiz MD Attn: Accounting, [address] [place], [address], [facility] 01/21/2024 09:49:02 03/23/2024 text/html follow up, two w eeks since foot fracture, using crutches, toward the middle of the day gets a little swollen, uses ice packs, taking Naproxyn BID with food, has numbness in foot but it is the same numbness she has had related to her back, saw pain management and ortho for her back, ortho did not feel surgery was necessary, recommended steroid shot, referred to pain management, saw them yesterday, pain management said to take Gabapentin 300 mg TID, on the weekends take muscle relaxer at night, planning for an injection, has follow up for diabetes in April Farideh Ortiz MD Attn: Accounting, [address] [facility], [place], [address], [facility] 03/23/2024 09:45:13 OBGyn Episode Ob Episode Information Episode Created Date Number of Fetuses Patient Bloodtype Patient rh Status Prepregnancy Weight lbs Domestic Partner Domestic Partner Phone Father Name Product Tester Status 06/16/19 19 1 240 DELETED Fetus Data First Name Last Name Admitted to NICU Weight (g) Sex Living Outcome Pediatric Complications Fetus ID Race Codes Race Delivery Type [id number] Bennett Calculation Initial Bennett Date Initial Exam Date Initial Exam Provider Initial Ultrasound Date Last Menstrual Period Date Ultra Sound Weeks Gestation 03/01/2019 06/15/2018 [facility] 05/25/2018 0 Eighteen To Twenty Week Bennett Update Ultra Sound Date Fundal Height At Umbil Quickening Date Ultra Sound Latest Weeks Gestation Final Bennett Confirmed By Final Bennett Confirmed Date Final Bennett Date Ultra Sound Latest Days Gestation 0 03/01/20 19 0 Menstrual History Last Menstrual Date Menses Monthly On Bcp Conception Prior Menses Frequency Hcg Plus Date Menarche Onset Age 0305/25/2018 false Delivery Information Delivery Date Delivery Type Labor Anesthesia Weeks Gestation Incision Type Labor Labor Length Hrs Delivered By Post Complications Tubal Sterilization Discharge Date Comments Discharge Information Feeding Method Contraceptive Method Maternal HG B and HCT Levels Ob Episode Information Episode Created Date Number of Fetuses Patient Bloodtype Patient rh Status Prepregnancy Weight lbs Domestic Partner Domestic Partner Phone Father Name Product Tester Status 06/16/19 19 1 240 DELETED Fetus Data First Name Last Name Admitted to NICU Weight (g) Sex Living Outcome Pediatric Complications Fetus ID Race Codes Race Delivery Type [id number] Bennett Calculation Initial Bennett Date Initial Exam Date Initial Exam Provider Initial Ultrasound Date Last Menstrual Period Date Ultra Sound Weeks Gestation 02/09/2019 06/15/2018 [facility] 05/05/2018 0 Eighteen To Twenty Week Bennett Update Ultra Sound Date Fundal Height At Umbil Quickening Date Ultra Sound Latest Weeks Gestation Final Bennett Confirmed By Final Bennett Confirmed Date Final Bennett Date Ultra Sound Latest Days Gestation 0 02/10/20 19 0 Menstrual History Last Menstrual Date Menses Monthly On Bcp Conception Prior Menses Frequency Hcg Plus Date Menarche Onset Age 0305/05/2018 false Delivery Information Delivery Date Delivery Type Labor Anesthesia Weeks Gestation Incision Type Labor Labor Length Hrs Delivered By Post Complications Tubal Sterilization Discharge Date Comments Discharge Information Feeding Method Contraceptive Method Maternal HG B and HCT Levels Ob Episode Information Episode Created Date Number of Fetuses Patient Bloodtype Patient rh Status Prepregnancy Weight lbs Domestic Partner Domestic Partner Phone Father Name Product Tester Status 06/16/19 19 1 O Positive 240 CLOSED Fetus Data First Name Last Name Admitted to NICU Weight (g) Sex Living Outcome Pediatric Complications Fetus ID Race Codes Race Delivery Type bhumi 3798.83 3 M Full Term 93316 [id number] Simóni roc Moore can Radha n Problems Problem Notes Product Tester Darcy Bradley. If boy, yes to circ. Repeat c/s. pt thinking aboutmaybe a , to be decided later on in . Combo feeding. PPBC BCP. 09/14/2018 mds Problem Name Start Date End Date Resolution Snomed Code Not e Hypertriglyceridemia 02/04/2017 24020121 6 Subchorionic hematoma 07/13/2018 7592265 04 Chlamydial infection 757145052 Gonorrhea 47873557 Abnormal progesterone 92805962 0 Diabetes mellitus 06/03/2018 97286638 Asthma 050394464 Group B Streptococcus carrier 06/15/2018 0045920196151 Body mass index 30+ - obesity 06/02/2017 580130424 Anemia 135686301 Bennett Calculation Initial Bennett Date Initial Exam Date Initial Exam Provider Initial Ultrasound Date Last Menstrual Period Date Ultra Sound Weeks Gestation 01/24/2019 06/15/2018 nelli 06/28/2018 05/25/2018 10 Eighteen To Twenty Week Bennett Update Ultra Sound Date Fundal Height At Umbil Quickening Date Ultra Sound Latest Weeks Gestation Final Bennett Confirmed By Final Bennett Confirmed Date Final Bennett Date Ultra Sound Latest Days Gestation 06/29/19 19 [address] [facility] 11/09/2018 019 0 Pre-marion Flowsheet Flowsheet Date 06/15/2018 Gauillon Score Blood Edema Fundus Height Fundus Units Glucose Ketones Leukocytes Nitrite Labor Signs Protein Cervic Dilation Cervic Effacement Cervic Station Type Weight in lbs Pre/Post Dialysis Refused Weight 242.385459027081 BP Diastolic BP Location Tested BP Systolic BP Type 78 130 sitting Fetus Heart Rate Present Fetus Movement Comments Flowsheet Date 07/02/2018 Aguillon Score Blood Edema Fundus Height Fundus Units Glucose Ketones Leukocytes Nitrite Labor Signs Protein Cervic Dilation Cervic Effacement Cervic Station Type Weight in lbs Pre/Post Dialysis Refused BP Diastolic BP Location Tested BP Systolic BP Type Fetus Heart Rate Present Fetus Movement Comments Flowsheet Date 07/13/2018 Aguillon Score Blood Edema Fundus Height Fundus Units Glucose Ketones Leukocytes Nitrite Labor Signs Protein Cervic Dilation Cervic Effacement Cervic Station Type Weight in lbs Pre/Post Dialysis Refused Weight 240.993480895950 BP Diastolic BP Location Tested BP Systolic BP Type 68 116 sitting Fetus Heart Rate Present Fetus Movement Comments Flowsheet Date 08/10/2018 Aguillon Score Blood Edema Fundus Height Fundus Units Glucose Ketones Leukocytes Nitrite Labor Signs Protein Cervic Dilation Cervic Effacement Cervic Station neg none 15 wks none negative none neg Type Weight in lbs Pre/Post Dialysis Refused BP Diastolic BP Location Tested BP Systolic BP Type 80 110 sitting Fetus Heart Rate Present A 161 Present Fetus Movement A Yes Comments Flowsheet Date 08/11/2018 Aguillon Score Blood Edema Fundus Height Fundus Units Glucose Ketones Leukocytes Nitrite Labor Signs Protein Cervic Dilation Cervic Effacement Cervic Station Type Weight in lbs Pre/Post Dialysis Refused BP Diastolic BP Location Tested BP Systolic BP Type Fetus Heart Rate Present Fetus Movement Comments Flowsheet Date 09/14/2018 Aguillon Score Blood Edema Fundus Height Fundus Units Glucose Ketones Leukocytes Nitrite Labor Signs Protein Cervic Dilation Cervic Effacement Cervic Station neg none 20 wks none negative none neg Type Weight in lbs Pre/Post Dialysis Refused Weight 238.096460294060 BP Diastolic BP Location Tested BP Systolic BP Type 60 100 sitting Fetus Heart Rate Present A 156 Present Fetus Movement A Yes Comments Flowsheet Date 09/22/2018 Aguillon Score Blood Edema Fundus Height Fundus Units Glucose Ketones Leukocytes Nitrite Labor Signs Protein Cervic Dilation Cervic Effacement Cervic Station neg none 21 wks none negative none neg Type Weight in lbs Pre/Post Dialysis Refused Weight 232.05652552912 BP Diastolic BP Location Tested BP Systolic BP Type 62 106 sitting Fetus Heart Rate Present A 146 Present Fetus Movement A Yes Comments Flowsheet Date 10/12/2018 Aguillon Score Blood Edema Fundus Height Fundus Units Glucose Ketones Leukocytes Nitrite Labor Signs Protein Cervic Dilation Cervic Effacement Cervic Station neg none 37 cm none negative trace Type Weight in lbs Pre/Post Dialysis Refused Weight 235.269550376077 BP Diastolic BP Location Tested BP Systolic BP Type 48 108 sitting Fetus Heart Rate Present A 139 Present Fetus Movement A Yes Comments Flowsheet Date 11/09/2018 Aguillon Score Blood Edema Fundus Height Fundus Units Glucose Ketones Leukocytes Nitrite Labor Signs Protein Cervic Dilation Cervic Effacement Cervic Station neg none 27 cm 1+ negative neg Type Weight in lbs Pre/Post Dialysis Refused Weight 237.614908653074 BP Diastolic BP Location Tested BP Systolic BP Type 72 112 sitting Fetus Heart Rate Present A 150 Present Fetus Movement A Yes Comments Flowsheet Date 11/12/2018 Aguillon Score Blood Edema Fundus Height Fundus Units Glucose Ketones Leukocytes Nitrite Labor Signs Protein Cervic Dilation Cervic Effacement Cervic Station none 29 wks Independence Roblero Type Weight in lbs Pre/Post Dialysis Refused Weight 237.738890644717 BP Diastolic BP Location Tested BP Systolic BP Type 68 102 Fetus Heart Rate Present A 143 Present Fetus Movement A Yes Comments 11/10/18 wnl. Appropriate growth and AGNIESZKA wnl. Flowsheet Date 03/01/2019 Aguillon Score Blood Edema Fundus Height Fundus Units Glucose Ketones Leukocytes Nitrite Labor Signs Protein Cervic Dilation Cervic Effacement Cervic Station Type Weight in lbs Pre/Post Dialysis Refused Weight 224.899585195538 BP Diastolic BP Location Tested BP Systolic BP Type 64 102 sitting Fetus Heart Rate Present Fetus Movement Comments Menstrual History Last Menstrual Date Menses Monthly On Bcp Conception Prior Menses Frequency Hcg Plus Date Menarche Onset Age 0305/25/2018 Genetic Screening And Infection History Question Response Note Patient's Age Will Be 35 Yea rs Or Older At Estimated Date of Delivery false Thalassemia (Slovak, Faroese, Mediterranean, Or Background): MCV < 80 false Neural Tube Defect (Meningom yelocele, Spina Bifida, Or Anencephaly) false Congenital Heart Defect false Down Syndrome false Aman-Sachs (eg, Buddhist, Cajun, German-Dry Run) f alse Monica Disease false Sickle Cell Disease Or Trait () false Hemophilia Or Other Blood Disorders false Muscular Dystrophy false Cystic Fibrosis false Kat's Chorea false Mental Retardation/Autism false If Yes, Was Person Tested For Fragile X? false Other Inherited Genetic Or Chromosomal Disorder false Maternal Metabolic Disorder (eg, Type 1 Diabetes , PKU) true Type II DM Patient Or Baby's Father Had A Child With Defects Not Listed Above false Recurrent Loss, Or A Stillbirth false Medications (including Suppl ements, Vitamins, Herbs, OTC Drugs), Illicit/Recreational Drugs, Alcohol false If Yes, Agent(s) And Strength/Dosage false Any Other Genetic History false Live With Someone With TB Or Exposed To TB false Patient Or Partner Has History Of Genital Herpes false Rash Or Viral Illness Since Last Menstrual Perio d false History Of STD, Gonorrhea, Chlamydia, HPV, Syphi lis true chlamydia, gonorrhea Other Infection History true GBS, BV History of HIV false History of Hepatitis false Prior GBS-infected child false Plans and Education First Trimester Discussed Date Discussion Item Discussion Note Discuss ed By 07/02/2018 Anticipated course of care Discu [place]sed [place] [facility] [email or web address] 07/02/2018 Alcohol Denies. [email or web address] 07/02/2018 Intimate partner violence Discussed at [facility]. [email or web address] 07/02/2018 Environmental/work hazards Discussed at [facility] [email or web address] 07/02/2018 Screening for aneuploidy [email or web address] [email or web address] 07/02/2018 Nutrition counseling ; special diet; dietary precautions (mercury, listeriosis) Discussed at [facility] [email or web address] 07/02/2018 Childbirth classes/hospital facilities Di scussed at [facility]. [email or web address] 07/02/2018 HIV and other routine tests 07/02/2018 Risk factors identif ied by history Discussed at [facility] [email or web address] 07/02/2018 Weight gain counseling apalm [email or web address] 07/02/2018 Exercise Discussed at [facility]. [email or web address] 07/02/2018 Teratogens [email or web address] 07/02/2018 Use of any medicatio ns (including supplements, vitamins, herbs, or OTC drugs) PNV [email or web address] 07/02/2018 Combo feeding. [email or web address] 07/02/2018 Sexual activity 07/02/2018 Tobacco/smoking cess ation counseling (ask, advise, assess, assist, and arrange) Denies. [email or web address] 07/02/2018 Illicit/recreational drugs Denies. amarilys hewitt 07/02/2018 Dental care Discussed at [facility] [email or web address] 07/02/2018 Travel [email or web address] 07/02/2018 Seat belt use Discussed at [facility]. [email or web address] 07/02/2018 Indications for ultrasonography 07/02/2018 Avoidance of saunas or hot tubs Discussed at [facility]. [email or web address] 07/02/2018 Toxoplasmosis precau tions (cats/raw meat) None in home. [email or web address] Second Trimester Discussed Date Discussion Item Discussion Note Discuss ed By Third Trimester Discussed Date Discussion Item Discussion Note Discuss ed By Delivery Information Delivery Date Delivery Type Labor Anesthesia Weeks Gestation Incision Type Labor Labor Length Hrs Delivered By Post Complications Tubal Sterilization Discharge Date Comments 9 Induce d Regional-Ep idural 39.3 false false Discharge Information Feeding Method Contraceptive Method Maternal HG B and HCT Levels Ob Episode Information Episode Created Date Number of Fetuses Patient Bloodtype Patient rh Status Prepregnancy Weight lbs Domestic Partner Domestic Partner Phone Father Name Product Tester Status 12/08/19 1 O Positive 220 CLOSED Fetus Data First Name Last Name Admitted to NICU Weight (g) Sex Living Outcome Pediatric Complications Fetus ID Race Codes Race Delivery Type Bharati Patel false 3401.94 F true Full Term : 8/10[place] [address] 2106-3 White Problems Problem Notes Problem Name Start Date End Date Resolution Snomed Code Note Deliveries by 04 Diabetes mellitus 06/04/19 53741704 Gestational vs T2DM. Eye exam last completed 02/08/2020. 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 909130274600946 Bennett Calculation Initial Bennett Date Initial Exam Date Initial Exam Provider Initial Ultrasound Date Last Menstrual Period Date Ultra Sound Weeks Gestation 08/09/2020 12/08/2019 [email or web address] 01/11/2020 11/06/2019 9 Eighteen To Twenty Week Bennett Update Ultra Sound Date Fundal Height At Umbil Quickening Date Ultra Sound Latest Weeks Gestation Final Bennett Confirmed By Final Bennett Confirmed Date Final Bennett Date Ultra Sound Latest Days Gestation 01/11/20 20 9 [email or web address] 01/12/2020 021 6 Pre- Flowsheet Flowsheet Date 01/09/2020 Aguillon Score Blood Edema Fundus Height Fundus Units Glucose Ketones Leukocytes Nitrite Labor Signs Protein Cervic Dilation Cervic Effacement Cervic Station neg none 10 wks none negative none neg Type Weight in lbs Pre/Post Dialysis Refused Weight 224.868343993203 BP Diastolic BP Location Tested BP Systolic BP Type 72 100 sitting Fetus Heart Rate Present A 153 Present Fetus Movement Comments HEART TONES POSITIVE M W THINKS PINK Flowsheet Date 02/06/2020 Aguillon Score Blood Edema Fundus Height Fundus Units Glucose Ketones Leukocytes Nitrite Labor Signs Protein Cervic Dilation Cervic Effacement Cervic Station neg none 13 wks none negative none neg Type Weight in lbs Pre/Post Dialysis Refused With clothes 0.0 BP Diastolic BP Location Tested BP Systolic BP Type Fetus Heart Rate Present A 150 Present Fetus Movement A Yes Comments 24yo VIKA at 13w4d. Preg tunde c/b DM2, fasting BG in 130s. Complete transfer of care to [facility] due to need for insulin. Flowsheet Date 03/12/2020 Aguillon Score Blood Edema Fundus Height Fundus Units Glucose Ketones Leukocytes Nitrite Labor Signs Protein Cervic Dilation Cervic Effacement Cervic Station Type Weight in lbs Pre/Post Dialysis Refused With clothes 244.778582518558 BP Diastolic BP Location Tested BP Systolic BP Type Fetus Heart Rate Present Fetus Movement Comments Flowsheet Date 08/13/2020 Aguillon Score Blood Edema Fundus Height Fundus Units Glucose Ketones Leukocytes Nitrite Labor Signs Protein Cervic Dilation Cervic Effacement Cervic Station Type Weight in lbs Pre/Post Dialysis Refused With clothes 240.216117859469 BP Diastolic BP Location Tested BP Systolic BP Type 82 L arm 126 sitting Fetus Heart Rate Present Fetus Movement Comments Flowsheet Date 10/04/2020 Aguillon Score Blood Edema Fundus Height Fundus Units Glucose Ketones Leukocytes Nitrite Labor Signs Protein Cervic Dilation Cervic Effacement Cervic Station Type Weight in lbs Pre/Post Dialysis Refused With clothes 241.858464721447 BP Diastolic BP Location Tested BP Systolic BP Type 68 R arm 106 sitting Fetus Heart Rate Present Fetus Movement Comments Menstrual History Last Menstrual Date Menses Monthly On Bcp Conception Prior Menses Frequency Hcg Plus Date Menarche Onset Age 0911/06/2019 true true 10/08/2019 26 12/08/19 2 0 12 Genetic Screening And Infection History Question Response Note Patient's Age Will Be 35 Yea rs Or Older At Estimated Date of Delivery false Thalassemia (Slovak, Faroese, Mediterranean, Or Background): MCV < 80 false Neural Tube Defect (Meningom yelocele, Spina Bifida, Or Anencephaly) false Congenital Heart Defect false Down Syndrome false Aman-Sachs (eg, Buddhist, Cajun, German-Dry Run) f alse Monica Disease false Sickle Cell Disease Or Trait () false Hemophilia Or Other Blood Disorders false Muscular Dystrophy false Cystic Fibrosis false Kat's Chorea false Mental Retardation/Autism false If Yes, Was Person Tested For Fragile X? false Other Inherited Genetic Or Chromosomal Disorder true MTHFR -homozygous Maternal Metabolic Disorder (eg, Type 1 Diabetes , PKU) false Patient Or Baby's Father Had A Child With Defects Not Listed Above false Recurrent Loss, Or A Stillbirth false Medications (including Suppl ements, Vitamins, Herbs, OTC Drugs), Illicit/Recreational Drugs, Alcohol false If Yes, Agent(s) And Strength/Dosage false Any Other Genetic History false Live With Someone With TB Or Exposed To TB false Patient Or Partner Has History Of Genital Herpes false Rash Or Viral Illness Since Last Menstrual Perio d false History Of STD, Gonorrhea, Chlamydia, HPV, Syphi lis false Other Infection History true GBS, BV, ca History of HIV false History of Hepatitis false Prior GBS-infected child false Delivery Information Delivery Date Delivery Type Labor Anesthesia Weeks Gestation Incision Type Labor Labor Length Hrs Delivered By Post Complications Tubal Sterilization Discharge Date Comments 1 Induce d Regional-Ep idural 39 false 10 Hemorrhage false 08/04/2020 Ta ahsan to OR for heavy bleeding/ large clotsPP D&C Discharge Information Feeding Method Contraceptive Method Maternal HG B and HCT Levels Combination IUD Ob Episode Information Episode Created Date Number of Fetuses Patient Bloodtype Patient rh Status Prepregnancy Weight lbs Domestic Partner Domestic Partner Phone Father Name Product Tester Status 04/27/19 15 1 O Positive [address] Jenny Mohan CLOSED Fetus Data First Name Last Name Admitted to NICU Weight (g) Sex Living Outcome Pediatric Complications Fetus ID Race Codes Race Delivery Type Ben Jorge false 3628.73 6 M Full Term jaundice [id number] ,[id number] [phone] Black or Afric an Ameri can Problems Problem Notes Baby Boy cally Drake mcision is YES, Epidural for vaginal , instruments sales representative is Kimberlee at [facility], Padmini Taylor for after that, Breast feeding. Norethindrone 0.35mg for PPBC. MSimpson [employer]UMENT REPA[employer]ER 11/28/2014 Problem Name Start Date End Date Resolution Snomed Code Not e Diabetes mellitus 42661928 Abnormal progesterone 91727081 0 Vitamin D deficiency 29474328 Gonorrhea 65250783 Chlamydial infection 438589628 Bacterial vaginosis 863012076 Asthma 613444910 Glucose tolerance test outsi de reference range 469087067 Anemia 682691592 Seasonal asthma 207606095 Large for gestation age fetus [id number] state [id number] Deliveries by [id number] Bennett Calculation Initial Bennett Date Initial Exam Date Initial Exam Provider Initial Ultrasound Date Last Menstrual Period Date Ultra Sound Weeks Gestation 12/22/2014 04/27/2014 05/04/2014 03/14/2014 6 Eighteen To Twenty Week Bennett Update Ultra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
--- OUTSIDE RECORDS SUMMARY | 2024-03-28 16:40 | XMS_ITS | Data Portability ---
Author Organization [place] [facility] [employer] Main Office Address [address] [place] [address] Care Team Providers Care Industrial Training Specialist Name Role Phone AYANNA JIMBO Primary Care Provider AYANNA JIMBO Referring Provider Assessment Encounter Date Assessment Date Assessment LastModified by Organization Details LastModified Time 10/26/2023 10/26/2023 28-year-old female presents for evaluation of her bilateral hips. She reports pain going on for several years since 2020 when she had her last child. Pain is located over the back of the pelvis. Both sides hurt, 1 side is not worse than the other. She has pain with extended periods of sitting, also walking and general activities. 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 She has not had any treatments yet, but is starting physical therapy ordered by her PCP on Thursday. She currently rates her pain as 4/10 Review of systems per patient questionnaire Physical exam: She has tenderness palpation of the SI joints. No tenderness in the groin or laterally. No pain with log roll. Hip flexion 110, internal rotation 20, external rotation 40 bilaterally. She does have discomfort over the SI joint with hip rotation and flexion. Five 5 strength. X-rays of the hips were reviewed, demonstrating no acute bony abnormality, preserved joint space She has bilateral SI joint pain. I would recommend a course of anti-inflammator ies and physical therapy. She has PT ordered, and we will start her on [id number] ibuprofen. We will have her follow up as needed. [email or web address] Not available 10/26/2023 10:21:55 Plan of Treatment Reminders Order Date Submit Date Provider Last Modified By Organization Details Last Modified Time Details Appointments New Patient 15 2024 02:15P Jose Clarke DPM Not available Not available Not available Lab None recorded . Referral None recorded . Procedures None recorded . Surgeries None recorded . Imaging None recorded . Medication Orders None recorded . Patient TargetsNo targets recorded. Patient InstructionsNo instructions recorded. Reason for Referral None Reported. Results Created Date Observation Date Name Description Value Unit Range Abnormal Flag Note LastModifiedBy Organization Detail LastModifiedTime 10/05/1909/16/2023 XR, hip + pelvi s, bilat eral, 3 or 4 view No observ ation record ed. Not Available 07/2023 12:05:47 10/05/19 24 09/16/2023 XR, lumba r spine No observ ation record ed. Not Available 07/2023 12:05:47 10/05/19 24 07/14/2023 elect romyo gram + nerve condu ction study No observ ation record ed. Not Available 07/2023 12:05:47 Result Notes None recorded. Problems Name Problem SNOMED Code Status Onset Date Resolution Date Notes Provider Name and Address Organization Details Recorded Time Bilateral hip joint pain 7933019798179 9100 Active 2023 Faby De La O, Maye null, [employer] 09:46:01 Bilateral sacroiliac joint pain 0023110124526 9104 Active 2023 Ronnie Agrawal MD [address] [place] [address], [phone] , [employer] 10:21:59 Problem Notes None recorded. Procedures Surgical History None recorded. Imaging Results Imaging Date Name Status LastModified by Organization Details LastModified Time 09/16/2023 XR, hip + pelvis, bilateral, 3 or 4 view completed Information not available 10/05/2023 12:05:47 09/16/2023 XR, lumbar spine completed Informa tion not available 10/05/2023 12:05:47 07/14/2023 electromyogram + nerve conduction study completed Information not available 10/05/2023 12:05:47 Procedure Notes None recorded. Medical Equipment None Reported. Allergies No known drug allergies Medications Name Sig Start Date Stop Date Status Note LastModified by Organization Details LastModified Time atorvastati n 40 mg tablet TAKE 1 TABLET BY MOUTH EVERY DAY active Not Available Not Available No t Available metformin 500 mg tablet TAKE 1 TABLET BY MOUTH TWICE A DAY WITH MEALS FOR 30 DAYS active Not Available Not Available No t Available tramadol 50 mg tablet TAKE 1-2 TABLETS BY MOUTH TWICE DAILY NEEDED FOR PAIN active Not Available Not Available No t Available gabapentin 100 mg capsule TAKE 2 CAPSULES BY MOUTH AT BEDTIME X1 WEEK THEN 3 CAPSULES ONCE DAILY AT BEDTIME active Not Available Not Available No t Available albuterol sulfate HFA 90 mcg/actuati on aerosol inhaler INHALE 1 PUFF BY MOUTH EVERY 4-6 HOURS DIRECTED FOR 30 DAYS active Not Available Not Available No t Available metformin ER 500 mg tablet,exte nded release 24 hr TAKE 1 TABLET BY MOUTH THREE TIMES A DAY WITH MEALS 10/25 completed Not Available Not Available Not Available naproxen 500 mg tablet TAKE 1 TABLET BY MOUTH TWICE A DAY WITH FOOD active Not Available Not Available No t Available nitrofurant oin monohydrate /macrocryst als 100 mg capsule TAKE 1 CAPSULE BY MOUTH TWICE A DAY 10/25 completed Not Available Not Available Not Available Lantus Solostar U-100 Insulin 100 unit/mL (3 mL) subcutaneou s pen INJECT 20 (TWENTY) UNITS SUBCUTANE OUSLY AT BEDTIME 10/25 completed Not Available Not Available Not Available B-12 Plus 5,000 mcg-100 mcg sublingual tablet TAKE 1 TABLET BY MOUTH EVERY DAY active Not Available Not Available No t Available OneTouch Verio test strips USE TO TEST ONCE DAILY active Not Available Not Available No t Available OneTouch Verio Flex Meter USE DIRECTED active Not Available Not Available No t Available TRUEplus Pen Needle 32 gauge x 5/32 USE TO INJECT LANTUS ONCE NIGHTLY active Not Available Not Available No t Available OneTouch Delica Plus Lancet 33 gauge USE TO TEST ONCE DAILY active Not Available Not Available No t Available Rybelsus 14 mg tablet TAKE 1 TABLET BY MOUTH EVERY DAY active Not Available Not Available No t Available Rybelsus 7 mg tablet TAKE 1 TABLET BY MOUTH EVERY DAY BEFORE MEALS 10/25 completed Not Available Not Available Not Available Rybelsus 3 mg tablet TAKE 1 TABLET BY MOUTH EVERY DAY BEFORE A MEAL 10/25 completed Not Available Not Available Not Available Vitals Date Recorded Body height Body mass index (BMI) Body weight Provider Name and Address Organization Details Last Updated DateTime 10/26/2023 170.18 cm 39.2 kg/m2 841610.09 g JAYESH Ferguson [facility] 10/26/2023 09:42:04 Social History Question Answer Notes LastModified by Organizat ion Details LastModified Time Tobacco Smoking Status Never Smoker JAYESH Ferguson null, [facility] 10/26/2023 09:44:18 What Is Your Level Of Alcohol Consumption? Occasional Information not available 10/26/2023 What Was The Date Of Your Most Recent Tobacco Screening? 10/26/2023 [email or web address] Information not available 10/26/2023 Sex: Unknown Functional Status None recorded. Mental Status None recorded. Family History Relationship Description Onset Age of this Age Resolved Age Notes LastModified by Organization Details LastModified Time Mother Family history of malignant neoplasm Not available 2023 09:43:43 Maternal Grandfather Diabetes mellitus [email or web address] Not available 2023 09:43:56 Medical History Condition Response ARTHRITIS Y USE OF BLOOD THINNERS Y ANEMIA/BLOOD DISORDER Y Gynecological HistoryNo gynecological history recorded. Obstetrics History GPAL:G 0 P 0 0 0 0 Past Encounters Encounter ID Performer Location Encounter Start Date Encounter Closed Date Diagnosis/Indication Diagnosis SNOMED-CT Code Diagnosis ICD10 Code Diagnosis Note [id number] Ronnie Agrawal MD [facility] [address] [address] 10/26/2023 09:24:54 10/26/2023 10:02:58 Bilateral hip joint pain 9191223002 5949457 M25.559 Bilateral sacroiliac joint pain 0221887337 9840565 M53.3 Health Concerns Section Related Observation LastModified by Organization Detai ls LastModified Time None Recorded Concern Status LastModified by Organization Details LastModified Time None Recorded Advance Directives Directive None Recorded Payers Encounter Date Sequence Insurance Name Policy Number Policy Mendoza Covered Member ID Mendoza Member ID Guarantor Name 10/26/2023 1 [facility] (MEDICAID HMO) [id number] Lilo Mane [id number] Charis Mane OBGyn Episode No OBEpisode recorded.
--- OUTSIDE RECORDS SUMMARY | 2024-03-28 16:40 | XMS_ITS | Patient Health Summary ---
Author Organization [facility] Address [address] [place] [address] Care Team Providers Care Meat And Seafood Manager Name Role Phone Clinic, [facility] Primary Care Provider Unavailable Note from [facility],non-owned Affiliates and Associated Physician Practices is amultiple site organization consisting of ambulatory clinics and hospital sitesin [place], [place], [place] and [place]. This disclosure is being madepursuant to the Care Everywhere program and may not contain all information available regarding this patient. Last updated 17.[facility] Allergies * Peanut-Derived(Urticaria) -High Criticality Medications * Be aware that medications may not be up to date on this document. Alwaysverify current medications with the patient. * albuterol HFA (PROVENTIL;VENTOLIN;PROAIR) 108 (90 Base) MCG/ACT inhaler (Started 10/20/2018) Inhale 2 puffs by mouth every 4 hours as needed 4 refills remaining * acetaminophen (TYLENOL) 500 MG tablet(Started 08/04/2020) Take 2 (two) tablets by mouth every 6 hours as needed Maximum allowable Acetaminophen amount = 4 Grams (4000 mg) / 24 hours. * aspirin (Aspirin) 81 MG chew tablet(Started 01/16/2023) Take 1 (one) tablet by mouth once daily * traMADol (Ultram) 50 MG tablet Take 1 (one) tablet by mouth every 6 hours as needed for Pain * naproxen (Naprosyn) 500 MG tablet Take 1 (one) tablet by mouth 2 times daily with morning and evening meal * ibuprofen (Motrin) 800 MG tablet Take 1 (one) tablet by mouth every 8 hours as needed for Fever or Pain * cyclobenzaprine (Flexeril) 10 MG tablet Take 1 (one) tablet by mouth 3 times daily as needed for Muscle Spasms * Mounjaro 5 MG/0.5ML injection Inject 5 (five) mg subcutaneously every 7 days * methylPREDNISolone (Medrol Dosepak) 4 MG tablet(Started 03/03/2024) Take by mouth as directed <!--EPICS-->Follow package insert dosing for six day supply.<!--EPICE--> * lidocaine (Lidoderm) 5 % patch(Started 03/03/2024) Apply 1 (one) patch to skin once daily Apply patch to most painful area and remove after 12 hours. May reapply a new patch 12 hours later. * cyclobenzaprine (Flexeril) 10 MG tablet(Started 03/03/2024) Take 1 (one) tablet by mouth 3 times daily as needed for Muscle Spasms * gabapentin (Neurontin) 300 MG capsule(Started 03/22/2024) Take 1 (one) capsule by mouth 3 times daily 2 refills by 03/22/2025 Ended Medications* insulin glargine (Lantus/Semglee) 100 units/mL pen(Started 01/16/2023)(Discontinued) Inject 20 (twenty) Units subcutaneously at bedtime 1 refill by 01/16/2024 * blood glucose test strip(Started 01/16/2023)(Discontinued) Use 1 (one) strip as directed * lancets(Started 01/16/2023)(Discontinued) Use 1 (one) Each once daily * metFORMIN (Glucophage) 500 MG tablet(Started 01/16/2023)(Discontinued) Take 1 (one) tablet by mouth 2 times daily with morning and evening meal * gabapentin (Neurontin) 100 MG capsule(Discontinued) Take 1 (one) capsule by mouth at bedtime * semaglutide (Rybelsus) 7 MG tablet(Discontinued) Take 1 (one) tablet by mouth once daily Take with a sip of water (< 4 oz) at least 30 minutes before any food, drink, or other meds. * nitrofurantoin monohyd macro crystals (Macrobid) 100 MG capsule(Started 06/15/2023)(Discontinued) Take 1 (one) capsule by mouth 2 times daily with morning and evening meal * Methylcobalamin 5000 MCG(Started 09/21/2023)(Discontinued) Take 5,000 mcg by mouth once daily * Cobalamin Combinations (B-12) 100-5000 MCG SUBL(Started 09/21/2023) (Discontinued) Take 1 tablet by mouth once daily * rosuvastatin (Crestor) 20 MG tablet(Discontinued) Take 1 (one) tablet by mouth once daily * Mounjaro 2.5 MG/0.5ML injection(Discontinued) Inject 2.5 (two and one-half) mg subcutaneously every 7 days * atorvastatin (Lipitor) 40 MG tablet(Started 10/29/2023)(Discontinued) Take 1 (one) tablet by mouth once daily Active Problems Problem Noted Date Diagnosed Date Chlamydial infection [...] 07/13/2018 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 06/15/2018 06/15/2018 Diabetes mellitus 06/03/2018 Blood glucose abnormal 06/02/2017 Mild intermittent asthma 06/02/2017 Medial epicondylitis 06/02/2017 Right wrist pain 05/26/2017 Hypertriglyceridemia 02/03/2017 Obesity 05/07/2016 Obesity affecting , antepartum Type 2 diabetes mellitus during History of section complicating pregnan cy Resolved Problems Problem Noted Date Diagnosed Date Resolved Date Normal labor and delivery 01/18/2019 Previous delivery, antepartum 12/27/2018 02/13/2020 Asthma exacerbation 10/14/2018 10/29/19 Asthma, moderate persistent 08/04/2018 12/27/2018 Diabetes mellitus 06/03/2018 06/04/2020 T2DM (type 2 diabetes mellitus) 05/18/2014 08/04/2018 Respiratory infection 2020 Oligohydramnios, antepartum 12/27/2018 Oligohydramnios, antepartum 12/31/2018 Screening, , for fe basia anatomic survey 06/04/2020 Immunizations * INFLUENZA VACCINE, TRIV. (AFLURIA, FLUZONE TRIVALENT; 6MO+) (IIV3)(Given 04/27/2014) * DTP(Given 11/08/1997, 09/04/1994, 1993, 1993, 1993) * FLU VACCINE QUAD IIV4 SPLIT 0.25 ML IM(Given 01/18/2010) * HEP A PED/ADULT VACCINE(Given 01/18/2010) * HEP B VACCINE, PED/ADOL(Given 07/28/2002, 12/15/1997, 11/08/1997) * Human Papilloma Virus Bivalent Vaccine(Given 04/12/2007) * INFLUENZA VACCINE(Given 12/31/2007) * MENINGOCOCCAL B VACCINE(Given 10/01/2007) * MENINGOCOCCAL CONJUGATE (MCV4P)(Given 10/01/2007) * MMR(Given 11/08/1997, 09/04/1994) * POLIO,HISTORIC VACCINE(Given 11/08/1997, 04/27/1995, 1993, 1993, 1993) * TDAP (7yrs+)(Given 06/04/2020, 11/09/2018, 10/01/2007) Social History Tobacco Use Types Packs/Day Years [...] you are drinking? Patient does not drink Q3: How often do you have si x or more drinks on one occasion? Never 01/15/2023 Overall Financial Resource Strain (CARDIA) Answe r Date Recorded How hard is it for you to pa y for the very basics like food, housing, medical care, and heating? Not hard at all 01/15/2023 PHQ-2 Answer Date Recorded Patient Health Questionnaire-2 Score 0 02/28/2024 [facility] [place] [facility] Occupat ional [facility] - Occupational Stress [...] place to sleep or slept in a snf (including now)? No 01/15/2023 Sex and Gender Information Value Date Recorded Sex Assigned at Not on file Gender Identity Not on file Sexual Orientation Not on file Last Filed Vital Signs Vital Sign Reading Time Taken Comments Blood Pressure 122/66 03/22/2024 8:52 AM INSPECT[employer] Pulse 81 03/22/2024 8:52 AM [employer] Temperature 36.6 ??C (97.8 ??F) 01/16/2023 9:15 AM CS T Respiratory Rate 16 03/22/2024 8:52 AM [employer] Oxygen Saturation 99% 05/04/2023 3:46 PM [employer] Inhaled Oxygen Concentration 21% 10/14/2018 9 :28 PM CDT Weight 107.5 kg (237 lb) 03/22/2024 8:52 AM [employer] Height 170.2 cm (5' 7 ) 05/04/2023 3:46 PM [employer] Body Mass Index 37.12 05/04/2023 3:46 PM [employer] Procedures * XR LUMBAR SPINE 4VW OR MORE(Performed 03/03/2024) Performed for Lumbar pain * PROC NET MVC DEVELOPER READ, 14 DAY(Performed 06/20/2023) Performed for Atrial fibrillation, unspecified type ([facility]) * EKG 12-LEAD(Performed 05/04/2023) Performed for PFO (patent foramen ovale) ([facility]) * CARDIAC HOLTER MONITOR ORDER(Performed 05/04/2023) * GLUCOSE - POINT OF CARE(Performed 01/16/2023) * GLUCOSE - POINT OF CARE(Performed 01/16/2023) * GLUCOSE - POINT OF CARE(Performed 01/15/2023) * GLUCOSE - POINT OF CARE(Performed 01/15/2023) * MRI BRAIN WO CONTRAST(Performed 01/15/2023) Performed for Acute left-sided weakness * GLUCOSE - POINT OF CARE(Performed 01/15/2023) * ECHO COMPLETE W CONTRAST W BUBBLE STUDY(Performed 01/15/2023) Performed for Acute left-sided weakness * XR CHEST 1VW PORTABLE(Performed 01/15/2023) Performed for Acute left-sided weakness * GLUCOSE - POINT OF CARE(Performed 01/15/2023) * TROPONIN-I HIGH SENSITIVE REFLEX 1HOUR(Performed 01/15/2023) * TROPONIN-I HIGH SENSITIVE BASELINE + 1HR(Performed 01/15/2023) * LIPID PROFILE(Performed 01/15/2023) * HEMOGLOBIN A1C(Performed 01/15/2023) * CBC W AUTO DIFFERENTIAL(Performed 01/15/2023) * BASIC METABOLIC PANEL (CALCIUM TOTAL)(Performed 01/15/2023) * PT EVAL AND TREAT(Performed 01/15/2023) * OT EVAL AND TREAT(Performed 01/15/2023) * CT CEREBRAL PERFUSION ANALYSIS(Performed 01/14/2023) Performed for Acute left-sided weakness * GLUCOSE - POINT OF CARE(Performed 08/16/2020) * GLUCOSE - POINT OF CARE(Performed 08/16/2020) * CBC W AUTO DIFFERENTIAL(Performed 08/16/2020) Performed for Supervision of high-risk of young multigravida (HCC), Endometritis * GLUCOSE - POINT OF CARE(Performed 08/15/2020) * TYPE + SCREEN PANEL(Performed 08/15/2020) Performed for Supervision of high-risk of young multigravida (HCC), Endometritis * URINE MICROSCOPIC ONLY REFLEX TO CULTURE(Performed 08/15/2020) Performed for Supervision of high-risk of young multigravida (HCC) * URINALYSIS REFLEX MICROSCOPIC REFLEX CULTURE(Performed 08/15/2020) Performed for Supervision of high-risk of young multigravida (HCC) * CULTURE URINE(Performed 08/15/2020) Performed for Supervision of high-risk of young multigravida (HCC) * COMPREHENSIVE METABOLIC PANEL(Performed 08/15/2020) Performed for Supervision of high-risk of young multigravida (HCC) * CBC W AUTO DIFFERENTIAL(Performed 08/15/2020) Performed for Supervision of high-risk of young multigravida (HCC) * IMAGING/RADIOLOGY/XRAY RESULTS ORDER(Performed 08/06/2020) * GLUCOSE - POINT OF CARE(Performed 08/04/2020) * GLUCOSE - POINT OF CARE(Performed 08/03/2020) * GLUCOSE - POINT OF CARE(Performed 08/03/2020) * GLUCOSE - POINT OF CARE(Performed 08/03/2020) * COMPREHENSIVE METABOLIC PANEL(Performed 08/03/2020) * CBC W AUTO DIFFERENTIAL(Performed 08/03/2020) * PATHOLOGY TISSUE EXAM (STL)(Performed 08/03/2020) Performed for Retained placenta, unspecified portion of placenta (HCC) * NEURAXIAL BLOCK(Performed 08/03/2020) * DILATION AND CURETTAGE (D&C) / SUCTION(Performed 08/03/2020) Performed for Retained placenta, unspecified portion of placenta (HCC) * BLOOD GASES CORD BARB(Performed 08/02/2020) * BLOOD GASES CORD ARTERIAL(Performed 08/02/2020) * GLUCOSE - POINT OF CARE(Performed 08/02/2020) * GLUCOSE - POINT OF CARE(Performed 08/02/2020) * NEURAXIAL BLOCK(Performed 08/02/2020) * GLUCOSE - POINT OF CARE(Performed 08/02/2020) * GLUCOSE - POINT OF CARE(Performed 08/02/2020) * GLUCOSE - POINT OF CARE(Performed 08/02/2020) * GLUCOSE - POINT OF CARE(Performed 08/02/2020) * GLUCOSE - POINT OF CARE(Performed 08/02/2020) * GLUCOSE - POINT OF CARE(Performed 08/02/2020) * TYPE + SCREEN PANEL(Performed 08/02/2020) * SYPHILIS ANTIBODY CASCADING REFLEX(Performed 08/02/2020) * CBC W AUTO DIFFERENTIAL(Performed 08/02/2020) * BIOPHYSICAL PROFILE W NST(Performed 07/31/2020) Performed for with type 2 diabetes mellitus in third trimester ([facility]) * URINALYSIS - POCT (IP) BEAKER INTERFACE(Performed 07/26/2020) * BIOPHYSICAL PROFILE W NST(Performed 07/23/2020) Performed for with type 2 diabetes mellitus in third trimester ([facility]) * URINALYSIS - POCT (IP) BEAKER INTERFACE(Performed 07/19/2020) * BIOPHYSICAL PROFILE W NST(Performed 07/16/2020) * NON-STRESS TEST(Performed 07/09/2020) * GLUCOSE - POINT OF CARE(Performed 07/09/2020) * URINALYSIS - POCT (IP) BEAKER INTERFACE(Performed 07/09/2020) * BIOPHYSICAL PROFILE W NST(Performed 07/09/2020) * URINALYSIS - POCT (IP) BEAKER INTERFACE(Performed 07/02/2020) * BIOPHYSICAL PROFILE W NST(Performed 07/02/2020) * URINALYSIS - POCT (IP) BEAKER INTERFACE(Performed 06/25/2020) * BIOPHYSICAL PROFILE W NST(Performed 06/25/2020) * URINALYSIS - POCT (IP) BEAKER INTERFACE(Performed 06/18/2020) * BIOPHYSICAL PROFILE W NST(Performed 06/18/2020) * HIV-1 RNA QUAL(Performed 06/04/2020) Performed for Supervision of high-risk of young multigravida ([facility]), False positive HIV serology * HIV-1 HIV-2 ANTIBODY DIFFERENTIATION(Performed 06/04/2020) Performed for Supervision of high-risk of young multigravida ([facility]), False positive HIV serology * CBC W AUTO DIFFERENTIAL(Performed 06/04/2020) Performed for Supervision of high-risk of young multigravida ([facility]) * HIV-1 HIV-2 ANTIBODY + HIV P24 AG PANEL(Performed 06/04/2020) Performed for Supervision of high-risk of young multigravida ([facility]), False positive HIV serology * SYPHILIS ANTIBODY CASCADING REFLEX(Performed 06/04/2020) Performed for Supervision of high-risk of young multigravida ([facility]) * URINALYSIS - POCT (IP) BEAKER INTERFACE(Performed 06/04/2020) * URINALYSIS - POCT (IP) BEAKER INTERFACE(Performed 05/21/2020) * SONOGRAM - COMPLETE(Performed 05/21/2020) * GLUCOSE PROTEIN KETONE URINE - POINT OF CAR(Performed 05/07/2020) Performed for , unspecified gestational age ([facility]) * ECHO (Performed 05/04/2020) Performed for Type 2 diabetes mellitus affecting in third trimester, antepartum ([facility]) * HIV-1 RNA QUAL(Performed 04/23/2020) Performed for 24 weeks gestation of ([facility]) * HIV-1 HIV-2 ANTIBODY DIFFERENTIATION(Performed 04/23/2020) Performed for 24 weeks gestation of ([facility]) * HIV-1 HIV-2 ANTIBODY + HIV P24 AG PANEL(Performed 04/23/2020) Performed for 24 weeks gestation of ([facility]) * SYPHILIS ANTIBODY CASCADING REFLEX(Performed 04/23/2020) Performed for 24 weeks gestation of ([facility]) * CBC W AUTO DIFFERENTIAL(Performed 04/23/2020) Performed for 24 weeks gestation of ([facility]) * GLUCOSE PROTEIN KETONE URINE - POINT OF CAR(Performed 04/23/2020) Performed for , unspecified gestational age ([facility]) * SONOGRAM - COMPLETE(Performed 04/23/2020) * CHLAMYDIA + GC AMPLIFIED PROBE(Performed 04/09/2020) Performed for , unspecified gestational age ([facility]) * GLUCOSE PROTEIN KETONE URINE - POINT OF CAR(Performed 04/09/2020) Performed for , unspecified gestational age ([facility]) * SONOGRAM - COMPLETE(Performed 03/26/2020) * TRICHOMONAS RAPID TEST(Performed 03/12/2020) Performed for , unspecified gestational age ([facility]) * CHLAMYDIA + GC AMPLIFIED PROBE(Performed 03/12/2020) Performed for , unspecified gestational age ([facility]) * COMPREHENSIVE METABOLIC PANEL(Performed 03/12/2020) Performed for Type 2 diabetes mellitus affecting in third trimester, antepartum ([facility]) * GLUCOSE PROTEIN KETONE URINE - POINT OF CAR(Performed 03/12/2020) Performed for , unspecified gestational age ([facility]) * PROTEIN URINE TIMED QUANTITATIVE(Performed 03/12/2020) Performed for Type 2 diabetes mellitus affecting in third trimester, antepartum ([facility]) * PROTEIN CREATININE RATIO URINE TIMED PNL(Performed 03/12/2020) Performed for Type 2 diabetes mellitus affecting in third trimester, antepartum ([facility]) * CREATININE URINE TIMED(Performed 03/12/2020) Performed for Type 2 diabetes mellitus affecting in third trimester, antepartum ([facility]) * GLUCOSE PROTEIN KETONE URINE - POINT OF CAR(Performed 02/27/2020) Performed for , unspecified gestational age ([facility]) * URINE DRUG SCREEN IMMUNOASSAY(Performed 02/13/2020) Performed for Supervision of high-risk of young multigravida ([facility]) * HIV-1 RNA PCR QUANTITATIVE NON GRAPHICAL(Performed 02/13/2020) Performed for HIV p24 antigen positive ([facility]) * HIV-1 HIV-2 ANTIBODY DIFFERENTIATION(Performed 02/13/2020) Performed for Supervision of high-risk of young multigravida ([facility]) * HEMOGLOBIN ELECTROPHORESIS(Performed 02/13/2020) Performed for Supervision of high-risk of young multigravida ([facility]) * HEMOGLOBIN A1C(Performed 02/13/2020) Performed for Supervision of high-risk of young multigravida ([facility]) * HIV-1 HIV-2 ANTIBODY + HIV P24 AG PANEL(Performed 02/13/2020) Performed for Supervision of high-risk of young multigravida ([facility]) * GLUCOSE PROTEIN KETONE URINE - POINT OF CAR(Performed 02/13/2020) Performed for , unspecified gestational age ([facility]) * SONOGRAM - COMPLETE(Performed 02/13/2020) * HIV-1 HIV-2 ANTIBODY W/ REFLX CONFIRM(Performed 12/19/2019) * PROFILE I W/ HBSAG(Performed 12/08/2019) * IMAGING/RADIOLOGY/XRAY RESULTS ORDER(Performed 04/14/2019) * HCG URINE QUALITATIVE - POINT OF CARE(Performed 03/07/2019) Performed for care and examination ([facility]) * CBC W AUTO DIFFERENTIAL(Performed 02/07/2019) Performed for , unspecified gestational age ([facility]) * GLUCOSE - POINT OF CARE(Performed 02/07/2019) * HGB HCT PANEL(Performed 01/22/2019) * GLUCOSE - POINT OF CARE(Performed 01/22/2019) * GLUCOSE - POINT OF CARE(Performed 01/22/2019) * GLUCOSE - POINT OF CARE(Performed 01/21/2019) * GLUCOSE - POINT OF CARE(Performed 01/21/2019) * GLUCOSE - POINT OF CARE(Performed 01/21/2019) * GLUCOSE - POINT OF CARE(Performed 01/21/2019) * GLUCOSE - POINT OF CARE(Performed 01/21/2019) * GLUCOSE - POINT OF CARE(Performed 01/21/2019) * HGB HCT PANEL(Performed 01/21/2019) * GLUCOSE - POINT OF CARE(Performed 01/20/2019) * GLUCOSE - POINT OF CARE(Performed 01/20/2019) * GLUCOSE - POINT OF CARE(Performed 01/20/2019) * GLUCOSE - POINT OF CARE(Performed 01/20/2019) * GLUCOSE - POINT OF CARE(Performed 01/20/2019) * GLUCOSE - POINT OF CARE(Performed 01/20/2019) * GLUCOSE - POINT OF CARE(Performed 01/20/2019) * PATHOLOGY TISSUE EXAM (STL)(Performed 01/20/2019) Performed for Type 2 diabetes mellitus affecting in third trimester, antepartum (HCC) * BLOOD GASES CORD BARB (ISTAT)(Performed 01/20/2019) * BLOOD GASES CORD ART (ISTAT)(Performed 01/20/2019) * GLUCOSE - POINT OF CARE(Performed 01/20/2019) * GLUCOSE - POINT OF CARE(Performed 01/20/2019) * GLUCOSE - POINT OF CARE(Performed 01/19/2019) * GLUCOSE - POINT OF CARE(Performed 01/19/2019) * GLUCOSE - POINT OF CARE(Performed 01/19/2019) * GLUCOSE - POINT OF CARE(Performed 01/19/2019) * GLUCOSE - POINT OF CARE(Performed 01/19/2019) * GLUCOSE - POINT OF CARE(Performed 01/19/2019) * GLUCOSE - POINT OF CARE(Performed 01/19/2019) * NEURAXIAL BLOCK(Performed 01/19/2019) * GLUCOSE - POINT OF CARE(Performed 01/19/2019) * GLUCOSE - POINT OF CARE(Performed 01/19/2019) * GLUCOSE - POINT OF CARE(Performed 01/19/2019) * GLUCOSE - POINT OF CARE(Performed 01/19/2019) * GLUCOSE - POINT OF CARE(Performed 01/19/2019) * GLUCOSE - POINT OF CARE(Performed 01/19/2019) * GLUCOSE - POINT OF CARE(Performed 01/19/2019) * GLUCOSE - POINT OF CARE(Performed 01/19/2019) * GLUCOSE - POINT OF CARE(Performed 01/19/2019) * GLUCOSE - POINT OF CARE(Performed 01/19/2019) * GLUCOSE - POINT OF CARE(Performed 01/19/2019) * GLUCOSE - POINT OF CARE(Performed 01/19/2019) * GLUCOSE - POINT OF CARE(Performed 01/19/2019) * GLUCOSE - POINT OF CARE(Performed 01/19/2019) * GLUCOSE - POINT OF CARE(Performed 01/19/2019) * GLUCOSE - POINT OF CARE(Performed 01/19/2019) * GLUCOSE - POINT OF CARE(Performed 01/18/2019) * GLUCOSE - POINT OF CARE(Performed 01/18/2019) * TYPE + SCREEN PANEL(Performed 01/18/2019) * CBC W AUTO DIFFERENTIAL(Performed 01/18/2019) * GLUCOSE - POINT OF CARE(Performed 01/18/2019) * GLUCOSE PROTEIN KETONE URINE - POINT OF CAR(Performed 01/17/2019) Performed for , unspecified gestational age (HCC) * BIOPHYSICAL PROFILE W NST(Performed 01/17/2019) * GLUCOSE PROTEIN KETONE URINE - POINT OF CAR(Performed 01/10/2019) Performed for , unspecified gestational age (HCC) * BIOPHYSICAL PROFILE W NST(Performed 01/10/2019) Performed for Type 2 diabetes mellitus affecting in second trimester, antepartum ([facility]) * BIOPHYSICAL PROFILE W NST(Performed 01/06/2019) Performed for Type 2 diabetes mellitus affecting in second trimester, antepartum ([facility]) * GLUCOSE PROTEIN KETONE URINE - POINT OF CAR(Performed 01/03/2019) Performed for , unspecified gestational age ([facility]) * BIOPHYSICAL PROFILE W NST(Performed 01/03/2019) Performed for Type 2 diabetes mellitus affecting in second trimester, antepartum ([facility]) * NONSTRESS TEST(Performed 01/02/2019) * GLUCOSE - POINT OF CARE(Performed 12/31/2018) * GLUCOSE - POINT OF CARE(Performed 12/31/2018) * GLUCOSE - POINT OF CARE(Performed 12/31/2018) * NON-STRESS TEST(Performed 12/31/2018) * SONOGRAM - LIMITED(Performed 12/31/2018) * GLUCOSE - POINT OF CARE(Performed 12/31/2018) * GLUCOSE - POINT OF CARE(Performed 12/31/2018) * GLUCOSE - POINT OF CARE(Performed 12/31/2018) * GLUCOSE - POINT OF CARE(Performed 12/30/2018) * GLUCOSE - POINT OF CARE(Performed 12/30/2018) * TYPE + SCREEN PANEL(Performed 12/30/2018) Performed for Oligohydramnios, antepartum, fetus 1 of multiple gestation ([facility]) * CBC W AUTO DIFFERENTIAL(Performed 12/30/2018) Performed for Oligohydramnios, antepartum, fetus 1 of multiple gestation ([facility]) * GLUCOSE - POINT OF CARE(Performed 12/30/2018) * BIOPHYSICAL PROFILE W NST(Performed 12/30/2018) * GLUCOSE - POINT OF CARE(Performed 12/27/2018) * GLUCOSE PROTEIN KETONE URINE - POINT OF CAR(Performed 12/27/2018) Performed for , unspecified gestational age ([facility]) * BIOPHYSICAL PROFILE W NST(Performed 12/23/2018) Performed for Type 2 diabetes mellitus affecting in second trimester, antepartum ([facility]) * CULTURE STREP B(Performed 12/20/2018) Performed for Type 2 diabetes mellitus during , third trimester ([facility]) * GLUCOSE PROTEIN KETONE URINE - POINT OF CAR(Performed 12/20/2018) Performed for Type 2 diabetes mellitus during , third trimester ([facility]) * BIOPHYSICAL PROFILE W NST(Performed 12/20/2018) * BIOPHYSICAL PROFILE W NST(Performed 12/16/2018) Performed for Type 2 diabetes mellitus affecting in second trimester, antepartum ([facility]) * BIOPHYSICAL PROFILE W NST(Performed 12/09/2018) * GLUCOSE PROTEIN KETONE URINE - POINT OF CAR(Performed 12/06/2018) Performed for Type 2 diabetes mellitus during , third trimester ([facility]) * BIOPHYSICAL PROFILE W NST(Performed 12/02/2018) Performed for Type 2 diabetes mellitus affecting in second trimester, antepartum ([facility]) * URINE MICROSCOPIC ONLY REFLEX TO CULTURE(Performed 11/25/2018) Performed for Type 2 diabetes mellitus with complication, without long-term current use of insulin ([facility]) * URINALYSIS REFLEX MICROSCOPIC REFLEX CULTURE(Performed 11/25/2018) Performed for Type 2 diabetes mellitus with complication, without long-term current use of insulin ([facility]) * PROTEIN CREATININE RATIO URINE RANDOM PNL(Performed 11/25/2018) Performed for Type 2 diabetes mellitus with complication, without long-term current use of insulin ([facility]) * CULTURE URINE(Performed 11/25/2018) Performed for Type 2 diabetes mellitus with complication, without long-term current use of insulin ([facility]) * GLUCOSE PROTEIN KETONE URINE - POINT OF CAR(Performed 11/25/2018) Performed for 32 weeks gestation of ([facility]) * BIOPHYSICAL PROFILE W NST(Performed 11/25/2018) Performed for Type 2 diabetes mellitus affecting in second trimester, antepartum ([facility]) * ECHO CONSULT - (Performed 11/15/2018) Performed for Type 2 diabetes mellitus during , third trimester ([facility]) * SONOGRAM - COMPLETE(Performed 11/10/2018) * GLUCOSE PROTEIN KETONE URINE - POINT OF CAR(Performed 11/10/2018) Performed for Establish gestational age, ultrasound ([facility]) * GLUCOSE PROTEIN KETONE URINE - POINT OF CAR(Performed 10/27/2018) Performed for , unspecified gestational age ([facility]) * IMAGING/RADIOLOGY/XRAY RESULTS ORDER(Performed 10/26/2018) * XR ANKLE RIGHT 3VW OR MORE(Performed 10/24/2018) Performed for Fall, initial encounter * PULMONARY/RESPIRATORY REPORT ORDER(Performed 10/21/2018) * GLUCOSE - POINT OF CARE(Performed 10/20/2018) * NON-STRESS TEST(Performed 10/20/2018) * GLUCOSE - POINT OF CARE(Performed 10/20/2018) * GLUCOSE - POINT OF CARE(Performed 10/20/2018) * GLUCOSE - POINT OF CARE(Performed 10/20/2018) * GLUCOSE - POINT OF CARE(Performed 10/19/2018) * GLUCOSE - POINT OF CARE(Performed 10/19/2018) * GLUCOSE - POINT OF CARE(Performed 10/19/2018) * GLUCOSE - POINT OF CARE(Performed 10/19/2018) * GLUCOSE - POINT OF CARE(Performed 10/19/2018) * GLUCOSE - POINT OF CARE(Performed 10/19/2018) * GLUCOSE - POINT OF CARE(Performed 10/19/2018) * GLUCOSE - POINT OF CARE(Performed 10/19/2018) * GLUCOSE - POINT OF CARE(Performed 10/18/2018) * GLUCOSE - POINT OF CARE(Performed 10/18/2018) * GLUCOSE - POINT OF CARE(Performed 10/18/2018) * GLUCOSE - POINT OF CARE(Performed 10/18/2018) * GLUCOSE - POINT OF CARE(Performed 10/18/2018) * GLUCOSE - POINT OF CARE(Performed 10/18/2018) * GLUCOSE - POINT OF CARE(Performed 10/18/2018) * GLUCOSE - POINT OF CARE(Performed 10/17/2018) * GLUCOSE - POINT OF CARE(Performed 10/17/2018) * GLUCOSE - POINT OF CARE(Performed 10/17/2018) * GLUCOSE - POINT OF CARE(Performed 10/17/2018) * BEDSIDE SPIROMETRY PRE AND POST BRONCHODILATOR(Performed 10/17/2018) * GLUCOSE - POINT OF CARE(Performed 10/17/2018) * GLUCOSE - POINT OF CARE(Performed 10/17/2018) * GLUCOSE - POINT OF CARE(Performed 10/17/2018) * GLUCOSE - POINT OF CARE(Performed 10/16/2018) * GLUCOSE - POINT OF CARE(Performed 10/16/2018) * GLUCOSE - POINT OF CARE(Performed 10/16/2018) * GLUCOSE - POINT OF CARE(Performed 10/16/2018) * GLUCOSE - POINT OF CARE(Performed 10/16/2018) * GLUCOSE - POINT OF CARE(Performed 10/16/2018) * GLUCOSE - POINT OF CARE(Performed 10/16/2018) * GLUCOSE - POINT OF CARE(Performed 10/16/2018) * GLUCOSE - POINT OF CARE(Performed 10/16/2018) * GLUCOSE - POINT OF CARE(Performed 10/15/2018) * GLUCOSE - POINT OF CARE(Performed 10/15/2018) * GLUCOSE - POINT OF CARE(Performed 10/15/2018) * GLUCOSE - POINT OF CARE(Performed 10/15/2018) * GLUCOSE - POINT OF CARE(Performed 10/15/2018) * GLUCOSE - POINT OF CARE(Performed 10/15/2018) * GLUCOSE - POINT OF CARE(Performed 10/15/2018) * GLUCOSE - POINT OF CARE(Performed 10/14/2018) * GLUCOSE - POINT OF CARE(Performed 10/14/2018) * NON-STRESS TEST(Performed 10/14/2018) * GLUCOSE - POINT OF CARE(Performed 10/14/2018) * GLUCOSE - POINT OF CARE(Performed 10/14/2018) * GLUCOSE - POINT OF CARE(Performed 10/14/2018) * GLUCOSE - POINT OF CARE(Performed 10/14/2018) * NON-STRESS TEST(Performed 10/14/2018) * GLUCOSE - POINT OF CARE(Performed 10/14/2018) * RESPIRATORY PATHOGEN PANEL BY PCR(Performed 10/13/2018) Performed for Moderate persistent asthma, unspecified whether complicated ([facility]) * GLUCOSE - POINT OF CARE(Performed 10/13/2018) * GLUCOSE - POINT OF CARE(Performed 10/13/2018) * EKG 12-LEAD(Performed 10/13/2018) Performed for Moderate persistent asthma, unspecified whether complicated ([facility]), Type 2 diabetes mellitus affecting in second trimester, antepartum ([facility]) * GLUCOSE - POINT OF CARE(Performed 10/13/2018) * XR CHEST 1VW(Performed 10/13/2018) Performed for Moderate persistent asthma, unspecified whether complicated ([facility]) * BLOOD TYPE VERIFICATION(Performed 10/13/2018) * CBC W AUTO DIFFERENTIAL(Performed 10/13/2018) Performed for Moderate persistent asthma, unspecified whether complicated ([facility]) * TYPE + SCREEN PANEL(Performed 10/13/2018) Performed for Moderate persistent asthma, unspecified whether complicated ([facility]) * SONOGRAM - COMPLETE(Performed 09/29/2018) Performed for Evaluate anatomy not seen on prior sonogram, Type 2 diabetes mellitus affecting in second trimester, antepartum ([facility]), Obesity affecting in second trimester ([facility]) * GLUCOSE PROTEIN KETONE URINE - POINT OF CAR(Performed 09/29/2018) Performed for , unspecified gestational age ([facility]) * SONOGRAM - COMPLETE(Performed 08/30/2018) Performed for Encounter for anatomic survey ([facility]) * GLUCOSE PROTEIN KETONE URINE - POINT OF CAR(Performed 08/30/2018) Performed for , unspecified gestational age ([facility]) * GLUCOSE - POINT OF CARE(Performed 08/18/2018) * GLUCOSE PROTEIN KETONE URINE - POINT OF CAR(Performed 08/04/2018) Performed for 14 weeks gestation of ([facility]) * SONOGRAM - COMPLETE(Performed 08/04/2018) Results * XR Lumbar Spine 4Vw or More (03/03/2024 11:06 AM [facility]) Anatomical Region Laterality Modality Spine Radiographic Liliya ging 03/03/2024 11:1 2 AM [facility] Impressions 03/03/2024 11:14 AM [facility] [employer] IMPRESSION: Lumbar dextroscoliosis. > Interpreting Provider: Glynn Ro MD on 03/03/2024 11:14 AM Narrative 03/03/2024 11:14 AM [facility] PROCEDURE: ??XR LUMBAR SPINE 4VW OR MORE [...] Glynn Ro MD on 03/03/2024 11:14 AM Samposn Masterson MD DIAGNOSTIC IMAGING O RDERABLES * Holter Read - 14 Day (06/20/2023 3:55 PM CDT) Narrative Allan Spicer MD - 06/20/2023 3:55 PM CDT Allan Spicer MD ? 06/20/2023 ??3:59 PM *The predominant rhythm was sinus. *The Maximum Heart Rate recorded was 144 bpm, 05/14 19:50:12, representing sinus tachycardia. The Minimum Heart Rate recorded was 50 bpm, 05/11 04:42:36, and the Average Heart Rate was 83 bpm. *There were 13 VE beats with a burden of <1 %. *There were 35 SVE beats with a burden of <1 %. *There were 0 Patient Triggers. Impression: Normal surveillance system monitor Allan Spicer MD PROCEDURE/MINOR SURG ICAL ORDERABLES * EKG 12-LEAD (05/04/2023 3:54 PM [facility]) Only the most recent of2 resultswithin the time period is included. Pathologist [facility] Ventricular Rate 79 BPM [facility] Atrial Rate 79 BPM [facility] P-R Interval 152 ms [facility] QRS Duration ms 80 ms [facility] Q-T Interval ms 362 ms [facility] QTC Calculation (Bezet) 415 ms [facility] Calculated P Brandon 40 degrees [facility] Calculated R Brandon 50 degrees [facility] Calculated T Brandon 23 degrees [facility] Interpretation EKG NORMAL SINUS RHYTHM WITH SINUS ARRHYTHMIA LOW VOLTAGE QRS SEPTAL INFARCT , AGE UNDETERMINED ABNORMAL ECG WHEN COMPARED WITH ECG OF 13-OCT-2018 18:31, SEPTAL INFARCT IS NOW PRESENT Confirmed by ALLAN SPICER MD ([id number]) on 05/11/2023 4:53:49 PM [facility] 05/04/2023 3:54 PM [facility] 05/11/2023 4:53 PM CDT Allan Spicer MD ECG ORDERABLES [facility] * CARDIAC HOLTER MONITOR ORDER (05/04/2023) Narrative 05/04/2023 Ordered by an unspecified provider. Scanned Document CARDIAC SERVICES ORD ERABLES * (ABNORMAL) GLUCOSE - POINT OF CARE (01/16/2023 12:54 PM [facility] [employer] [facility]) Only the most recent of129 resultswithin the time period is included. [facility] Glucose WB/POC 200(H) 70 - 106 mg/dL 01/16/2023 12:58 PM [facility] Specimen Type Cap Fingerstick 2022 12:58 PM INSPECTOR [employer] M[facility]OR [facility] Blood BLOOD SPECIMEN / Unknown 01/16/2023 12:54 PM [facility] [employer] [employer] M[employer] 01/16/2023 12:58 PM [facility] [employer] [employer] Anna Da Silva MD LAB - POINT OF CARE ORDERABLES [facility] [id number] [place] [address] * MRI BRAIN WO CONTRAST (01/15/2023 3:59 PM [facility] [employer] [facility]) Anatomical Region Laterality Modality Head Magnetic Resonan ce 01/15/2023 4:02 PM [facility] [employer] [facility] Impressions 01/15/2023 4:05 PM [facility] [employer] [facility] Impression: Normal MRI of brain. > Interpreting Provider: Emily Madrigal MD on 01/15/2023 4:05 PM Narrative 01/15/2023 4:05 PM [facility] [employer] [facility] PROCEDURE: ??MRI BRAIN WO CONTRAST, DATE/TIME OF EXAM: ??01/15/2023 4:00 PM, LOCATION ??[facility] INDICATION: R53.1: Weakness ADDITIONAL CLINICAL INFORMATION: Ordering Provider Reason For Exam: ??CVA, acute left-sided weakness Technologist Note: Additional: COMPARISON: None. Technique: Sagittal, coronal and axial T1, axial dual-echo T2, axial FFE, coronal and axial FLAIR, axial diffusion. Gadolinium was not administered for this examination. Findings: There are no areas of abnormal restricted diffusion to suggest the presence of an acute cortical or white matter infarction. Ventricles and sulci are within normal limits in size for patient's given age. There is no intracranial hemorrhage, mass, or mass effect. No abnormal extra-axial fluid collection is seen. There is no cortical infarction. Nonspecific white matter changes are mild and age appropriate. Major arterial and dural venous flow-voids at the skull base are patent. There is mucosal thickening in the right sphenoid sinus and in scattered ethmoid sinuses. Cranial and facial soft tissues otherwise appear unremarkable. Procedure Note Emily Madrigal MD - 01/15/2023 PROCEDURE: MRI BRAIN WO CONTRAST, DATE/TIME OF EXAM: 01/15/2023 4:00PM, LOCATION [facility] INDICATION: R53.1: Weakness ADDITIONAL CLINICAL INFORMATION: Ordering Provider Reason For Exam: CVA, acute left-sided weakness Technologist Note: Additional: COMPARISON: None. Technique: Sagittal, coronal and axial T1, axial dual-echo T2, axialFFE, coronal and axial FLAIR, axial diffusion. Gadolinium was notadministered for this examination. Findings: There are no areas of abnormal restricted diffusion to suggest the presence of an acute cortical or white matter infarction. Ventricles and sulci are within normal limits in size for patient's given age.There is no intracranial hemorrhage, mass, or mass effect. No abnormal extra-axial fluid collection is seen. There is no cortical infarction. Nonspecific white matter changes are mild and age appropriate. Major arterial and dural venous flow-voids at the skull base are patent. Thereis mucosal thickening in the right sphenoid sinus and in scattered ethmoid sinuses. Cranial and facial soft tissues otherwise appear unremarkable. Impression: Normal MRI of brain. > Interpreting Provider: Emily Madrigal MD on 01/15/2023 4:05 PM Lydia Bolaños SHUTDOWN PLANNER-HANDLE SANDER OPERATOR MR ORDERABLES * ECHO COMPLETE W CONTRAST W BUBBLE STUDY (01/15/2023 11:23 AM [facility]) BSA 2.36 m2 [facility] CV FUJ I PACS LV biplane EF 63 54 - 74 % SSM CV FUJI PACS LV A2C EF 60 52 - 76 % SSM CV FUJ I PACS LV A4C EF 66 46 - 78 % SSM CV FUJ I PACS LV stroke vol BP 58.4 mL SSM CV FUJI PACS LV stroke vol BP index 24.7 mL/m2 SSM CV FUJI PACS LVOT stroke vol 73.02 mL SSM CV FUJI PACS LVOT stroke vol index 30.94 mL/m2 SSM CV FUJI PACS LV stroke vol 2D teich 72.188 ml SSM CV FUJI PACS LV Stroke Index 2D Teich 30.59 mL/m2 SSM CV FUJI PACS LV stroke vol index A4C MOD 71.127 ml/m2 SSM CV FUJI PACS LVIDd 5.00 3.8 - 5.2 cm SSM CV FUJI PACS IVSd MM 1.133 0.6 - 0.9 cm SSM CV FUJI PACS LVIDs 3.36 2.2 - 3.5 cm SSM CV FUJI PACS IVSd 2D 0.879 0.6 - 0.9 cm SSM CV FUJI PACS LVPWd 0.92 0.6 - 0.9 cm SSM CV FUJI PACS Fractional Shortening 2D 33 28 - 44 % SSM CV FUJI PACS LV ESV BP 34.538 14 - 42 mL SSM CV FUJI PACS LV ESV index BP 14.6 8 - 24 mL/m2 SSM CV FUJI PACS LV ESV A2C 36.523 10 - 54 mL SSM CV FUJI PACS LV ESV index A2C 15.48 6 - 30 mL/m2 SSM CV FUJI PACS LV EDV BP 92.952 46 - 106 mL SSM CV FUJI PACS LV ESV A4C 31.763 12 - 60 mL SSM CV FUJI PACS LV ESV index A4C 13.46 7 - 35 mL/m2 SSM CV FUJI PACS LV EDV index BP 39.4 29 - 61 mL/m2 SSM CV FUJI PACS LV EDV A2C 78.85 41 - 133 mL SSM CV FUJI PACS LV EDV index A2C 33.41 26 - 74 mL/m2 SSM CV FUJI PACS LV EDV A4C 107.651 mL SSM CV FU JI PACS LV ESV 2D 46.017 14 - 42 mL SSM CV FUJI PACS LV EDV index A4C 45.61 30 - 82 mL/m2 SSM CV FUJI PACS LV ESV index 2D 19.50 8 - 24 mL/m2 SSM CV FUJI PACS LV EDV 2D 118.205 46 - 106 mL SSM CV FUJI PACS LV EDV index 2D 50.09 29 - 61 mL/m2 SSM CV FUJI PACS LVOT diam 2.2 cm SSM CV FUJ I PACS LVOT area 3.64 cm2 SSM CV FUJ I PACS LV RWT 0.368 SSM CV FUJ I PACS LV Domingo A2C 7.964 cm SSM CV F UJI PACS LV Domingo A4C 8.318 cm SSM CV F UJI PACS IVS/LVPW 0.957 SSM CV FUJ I PACS Fractional Shortening M-Mode 34 28 - 44 % SSM CV FUJ I PACS LV mass m-mode 232.675 67 - 162 g SSM CV FUJI PACS LV mass index m-mode 98.59 43 - 95 g/m2 SSM CV FUJI PACS LV mass 2D 158.007 66 - 150 g SSM CV FUJI PACS LV mass index 2D 66.95 44 - 88 g/m2 SSM CV FUJI PACS MV E pk yamini 73.535 cm/s SSM CV F UJI PACS MV avg E/e' ratio 8.12 SS M CV FUJI PACS MV A pk yamini 49.968 cm/s SSM CV F UJI PACS MV E A ratio 1.47 SSM CV FUJI PACS MV E' lateral yamini 9.534 cm/s SS M CV FUJI PACS MV DT 205 ms SSM CV FUJ I PACS MV E' septal yamini 8.623 cm/s SSM CV FUJI PACS MV E/e' septal 8.528 SSM C V FUJI PACS MV E/e' lateral 7.713 SSM CV FUJI PACS TR pk yamini 227.2 cm/s SSM CV [facility] I PACS LVOT pk yamini 0.92 m/s SSM CV F UJI PACS LVOT mn yamini 0.61 m/s SSM CV F UJI PACS LVOT mn grad 1.7 mmHg SSM CV FUJI PACS LVOT Cardiac Output 4.81 l/min SSM CV FUJI PACS LVOT Cardiac Index 2.04 l/min/m2 S SM CV FUJI PACS LA vol BP A-L 36.643 mL SSM CV FUJI PACS TAPSE 1.686 1.7 cm SSM CV FUJ I PACS RA area 18.095 cm2 SSM CV FUJ I PACS AV mn grad 3 mmHg SSM CV FU JI PACS AV pk grad 6 mmHg SSM CV FU JI PACS AV mn yamini 0.84 m/s SSM CV FUJ I PACS AV pk yamini 1.19 m/s SSM CV FUJ I PACS AV VTI 24.338 cm SSM CV FUJ I PACS LVOT pk grad 3.39 mmHg SSM CV FUJI PACS LVOT VTI 20.048 cm SSM CV FUJ I PACS AV area cont VTI 3.0 cm2 SSM CV FUJI PACS AV area pk yamini 2.8 cm2 SSM C V FUJI PACS AV Doppler yamini index pk yamini 0.771 SSM CV FUJI PACS Dimensionless Index 0.824 SSM CV FUJI PACS MV decel slope 358.121 cm/s2 SSM C V FUJI PACS TR pk grad 21 mmHg SSM CV FU JI PACS AZ pk yamini 130.414 cm/s SSM CV FUJ I PACS AZ pk grad 6 mmHg SSM CV FU JI PACS PV pk yamini 104.917 cm/s SSM CV FUJ I PACS PV pk grad 4 mmHg SSM CV FU JI PACS [id number] 7.181 cm SSM CV FUJ I PACS [id number] 6.806 cm SSM CV FUJ I PACS EF M-Mode 62 % SSM CV FUJ I PACS LA Size 3.951 cm SSM CV FUJ I PACS Anatomical Region Laterality Modality Ultrasound Narrative 01/15/2023 1:47 PM [facility] ?Left ventricle size is upper limits of normal. Normal wall thickness. Normal systolic function. EF 50-55% Normal wall motion. Normal diastolic function. ?No significant valvular disease ?Left??Atrium: PFO present with a right to left shunt viewable by saline contrast. Left Ventricle Left ventricle size is upper limits of normal. Normal wall thickness. Normal systolic function. EF 50-55% Normal wall motion. Normal diastolic function. Right Ventricle Right ventricle is not well visualized, appears grossly normal in size and systolic function. Left Atrium Left atrium size is normal. PFO present with a right to left shunt viewable by saline contrast. Right Atrium Right atrium size is normal. IVC/SVC IVC diameter is less than or equal to 21 mm and decreases greater than 50% during inspiration; therefore the estimated right atrial pressure is normal (~3 mmHg). Mitral Valve Valve structure is normal. No restricted motion. Mild regurgitation. No stenosis. Tricuspid Valve Valve structure is normal. No restricted motion. Trace regurgitation. No stenosis. Aortic Valve Valve structure is trileaflet. No restricted motion. No regurgitation. No stenosis. Pulmonic Valve Valve structure is normal. No restricted motion. No regurgitation. No stenosis. Ascending Aorta Normal sized sinus of Valsalva (aortic root) and ascending aorta. Pericardium No pericardial effusion. Study Details Study quality was adequate. A complete 2D, color Doppler, spectral Doppler and M-mode echocardiogram was performed. The apical, parasternal, subcostal and suprasternal views were obtained. Definity and saline ultrasound enhancing agent used. Technical difficulties due to patient supine position. Procedure Note Sharan Olivo MD - 01/15/2023 ? ? Left ventricle size is upper limits of normal. Normal wall thickness.Normal systolic function. EF 50-55% Normal wall motion. Normal diastolicfunction. ? ? No significant valvular disease ? ? Left??Atrium: PFO present with a right to left shunt viewable by salinecontrast. Anna Da Silva MD ECHO CUPID * XR CHEST 1VW PORTABLE (01/15/2023 9:59 AM INS[facility]) Anatomical Region Laterality Modality Chest Radiographic Liliya ging 01/15/2023 10:0 3 AM [facility] [employer] [employer] [facility] Impressions 01/15/2023 10:04 AM [facility] [employer] [employer] [facility] Impression: No active disease. . > Interpreting Provider: Todd Castaneda MD on 01/15/2023 10:04 AM Narrative 01/15/2023 10:04 AM [facility] PROCEDURE: ??XR CHEST 1VW PORTABLE, DATE/TIME OF EXAM: ??01/15/2023 9:59 AM, LOCATION ??[facility] INDICATION: R53.1: Weakness ADDITIONAL CLINICAL INFORMATION: Ordering Provider Reason For Exam: Technologist Note: Additional: ??Left-sided weakness 27-year-old COMPARISON: October 13, 2018 Findings: Nonstandard portable exam. The mediastinal configuration is normal. I suspect the aorta is on the left, as before. Somewhat of an narrowing of the mediastinal pedicle. The pulmonary vessels are normal The pulmonary vessels are normal. No lobar consolidation or pleural effusion. No paraspinal soft tissue swelling. No asymmetric hilar enlargement or major airway displacement. Procedure Note Todd Castaneda MD - 01/15/2023 PROCEDURE: XR CHEST 1VW PORTABLE, DATE/TIME OF EXAM: 01/15/2023 9:59AM, LOCATION [facility] INDICATION: R53.1: Weakness ADDITIONAL CLINICAL INFORMATION: Ordering Provider Reason For Exam: Technologist Note: Additional: Left-sided weakness 27-year-old COMPARISON: October 13, 2018 Findings: Nonstandard portable exam. The mediastinal configuration is normal. I suspect the aorta is on the left, as before. Somewhat of an narrowing of the mediastinal pedicle.The pulmonary vessels are normal The pulmonary vessels are normal. No lobar consolidation or pleural effusion. No paraspinal soft tissue swelling.No asymmetric hilar enlargement or major airway displacement. Impression: No active disease. . > Interpreting Provider: Todd Castaneda MD on 01/15/2023 10:04 AM Anna Da Silva MD DIAGNOSTIC IMAGING O RDERABLES * TROPONIN-I HIGH SENSITIVE REFLEX 1HOUR (01/15/2023 2:06 AM [facility]) Pathologist [facility] Troponin I High Sensitive <3 <=14 ng/L 01/15/2023 2:37 AM INSPECTOR [employer] OR MIRROR [facility] Delta Troponin I HS 01/15/2023 2:37 AM INSPECT[facility] [employer] OR MIRR[facility] Comment:Result exceeds linea rity range. A delta value is unable to be calculated. Blood BLOOD SPECIMEN / Unknown Venipuncture / Unknown 01/15/2023 2:06 AM INS[facility] M[facility] 01/15/2023 2:10 AM [facility] [employer] Anna Da Silva MD LAB - CHEMISTRY STEFANIA SANCHEZ [facility] [address] [place] [address] * TROPONIN-I HIGH SENSITIVE BASELINE + 1HR (01/15/2023 1:09 AM INSPECTOR [employer]ASS OR MIRROR) [facility] Troponin I High Sensitive <3 <=14 ng/L 01/15/2023 1:42 AM INSPECT[facility] [employer] OR MIRROR [facility] Blood BLOOD SPECIMEN / Unknown Venipuncture / Unknown 01/15/2023 1:09 AM INS[facility] [employer] M[employer]OR 01/15/2023 1:21 AM INS[facility] [employer] M[employer]OR Anna Da Silva MD LAB - CHEMISTRY STEFANIA SANCHEZ [facility] Organization Address City/State/ZIP Co de Phone Number [facility] [address] [place] [address] * (ABNORMAL) HEMOGLOBIN A1C (01/15/2023 1:09 AM INSPECT[facility] [employer] [employer] M[employer]) Only the most recent of2 resultswithin the time period is included. Hemoglobin A1c 10.5(H) <5.7 % 01/15/2023 1:50 AM INSPECT[facility] [employer] M[facility] Estimated Average Glucose 255 mg/dL 01/15/2023 1:50 AM INSPECTOR [employer] MIRR[facility] Blood BLOOD SPECIMEN / Unknown Venipuncture / Unknown 01/15/2023 1:09 AM INSPECT[facility] [employer] MIRROR 01/15/2023 1:21 AM INSPECTOR [employer] OR MIRROR Narrative [facility] - 01/15/2023 1:50 AM INSPECTOR [employer] [employer] MIRROR HbA1c Interpretation: Normal: < 5.7% Pre-diabetes: 5.7-6.4% [...] exceeds 5% in the specimen. The Pena ShoutWirenity assay for the measurement of HbA1c is a National Glycohemoglobin Standardization Program (NGSP) certified method. Anna Da Silva MD LAB - CHEMISTRY STEFANIA SANCHEZ [facility] Organization Address City/State/ZIP Co de Phone Number [facility] [address] [place] [address] * (ABNORMAL) CBC W AUTO DIFFERENTIAL (01/15/2023 1:09 AM INSPECTOR [employer] [employer] MIRROR) Only the most recent of11 resultswithin the time period is included. WBC 6.4 4.4 - 10.7 x10E9/L 01/15/2023 1:26 AM [facility] WBC Corrected 01/15/2023 1:26 AM [facility] RBC 4.02 3.80 - 5.20 x10E12/L 01/15/2023 1:26 AM [facility] Hemoglobin 11.2(L) 12.0 - 15.6 gm/dL 01/15/2023 1:26 AM [facility] Hematocrit 34.0(L) 35.9 - 45.5 % 01/15/2023 1:26 AM [facility] MCV 84.6 80.7 - 98.3 fl 01/15/2023 1:26 AM [facility] MCH 27.9 26.7 - 34.0 pg 01/15/2023 1:26 AM [facility] MCHC 32.9 30.8 - 35.9 gm/dL 01/15/2023 1:26 AM [facility] Platelet Count 169 153 - 416 x10E9/L 01/15/2023 1:26 AM [facility] RDW-CV 12.7 12.1 - 14.9 % 01/15/2023 1:26 AM [facility] MPV 10.8 9.4 - 12.9 fl 01/15/2023 1:26 AM [facility] Neutrophils % 71.5 44.0 - 73.0 % 01/15/2023 1:26 AM [facility] Lymphocytes % 21.0 20.0 - 43.0 % 01/15/2023 1:26 AM [facility] Monocytes % 5.3 5.0 - 13.0 % 01/15/2023 1:26 AM [facility] Eosinophils % 1.4 0.0 - 6.0 % 01/15/2023 1:26 AM [facility] Basophils % 0.6 0.0 - 2.0 % 01/15/2023 1:26 AM [facility] Immature Granulocytes 0.2 0 - 1 % 01/15/2023 1:26 AM [facility] Neutrophil Absolute 4.57 2.01 - 7.14 x10E9/L 01/15/2023 1:26 AM [facility] Lymphocytes Absolute 1.34 1.07 - 3.94 x10E9/L 01/15/2023 1:26 AM [facility] Monocytes Absolute 0.34 0.26 - 1.07 x10E9/L 01/15/2023 1:26 AM [facility] Eosinophils Absolute 0.09 0 - 0.47 x10E9/L 01/15/2023 1:26 AM [facility] Basophils Absolute 0.04 0 - 0.08 x10E9/L 01/15/2023 1:26 AM [facility] Immature Granulocytes Absolute 0.01 0.00 - 0.06 x10E9/L 01/15/2023 1:26 AM [facility] nRBC Auto 0 /100 WBC 01/15/2023 1:26 AM [facility] Blood BLOOD SPECIMEN / Unknown Venipuncture / Unknown 01/15/2023 1:09 AM INSPECTOR GLASS OR MIRROR 01/15/2023 1:21 AM [facility] Anna Da Silva MD LAB - HEMATOLOGY ORD ERABLES [facility] [address] [place] [address] * (ABNORMAL) BASIC METABOLIC PANEL (CALCIUM TOTAL) (01/15/2023 1:09 AM [facility] Pathologist [facility] Glucose 282(H) 70 - 105 mg/dL 01/15/2023 1:37 AM [facility] Sodium 138 136 - 145 mmol/L 01/15/2023 1:37 AM [facility] Potassium 3.7 3.5 - 5.1 mmol/L 01/15/2023 1:37 AM [facility] Chloride 107 98 - 107 mmol/L 01/15/2023 1:37 AM [facility] CO2 20(L) 22 - 29 mmol/L 01/15/2023 1:37 AM [facility] Calcium 8.4 8.4 - 10.4 mg/dL 01/15/2023 1:37 AM [facility] Anion Gap 11 6 - 16 mmol/L 01/15/2023 1:37 AM [facility] BUN 6 5.3 - 18.7 mg/dL 01/15/2023 1:37 AM [facility] Creatinine 0.71 0.57 - 1.11 mg/dL 01/15/2023 1:37 AM [facility] eGFR by CKD-EPI >90 >=90 mL/min/1.7 3 m2 01/15/2023 1:37 AM [facility] Blood BLOOD SPECIMEN / Unknown Venipuncture / Unknown 01/15/2023 1:09 AM INSPECTOR GLASS OR MIRROR 01/15/2023 1:21 AM [facility] Anna Da Silva MD LAB - CHEMISTRY STEFANIA SANCHEZ [facility] Organization Address City/State/ZIP Co de Phone Number [facility] [address] [place] [address] * (ABNORMAL) LIPID PROFILE (01/15/2023 1:09 AM [facility] Cholesterol 159 <200 mg/dL 01/15/2023 1:37 AM [facility] Triglycerides 157(H) <150 mg/dL 01/15/2023 1:37 AM [facility] HDL Cholesterol 40(L) >40 mg/dL 3 1:37 AM [facility] LDL Calculated 88 <130 mg/dL 01/15/2023 1:37 AM [facility] VLDL Calculated 31(H) <=30 mg/dL 3 1:37 AM [facility] Chol HDL Ratio 4.0 <4.5 01/15/2023 1:37 AM [facility] LDL/HDL Ratio 2.2 <5.0 01/15/2023 1:37 AM [facility] Blood BLOOD SPECIMEN / Unknown Venipuncture / Unknown 01/15/2023 1:09 AM INSPECTOR GLASS OR MIRROR 01/15/2023 1:21 AM INSPECTOR GLASS OR MIRROR Anna Da Silva MD LAB - CHEMISTRY STEFANIA Lyman Organization Address City/State/ZIP Co de Phone Number [facility] [address] [place] [address] * CT CEREBRAL PERFUSION ANALYSIS (01/14/2023 11:41 PM INSPECTOR GLASS OR MIRROR) Anatomical Region Laterality Modality Head Computed Tomogra phy 01/15/2023 8:24 AM INSPECTOR GLASS OR MIRROR Impressions 01/15/2023 10:43 AM INSPECTOR GLASS OR MIRROR IMPRESSION: CT perfusion abnormality in both frontal lobes, right greater than left, with mismatch volume of about 2 mL. Recommend further evaluation MR of the brain without contrast. CT angiography head and neck is not available at the time of interpretation. Edited by Ernestina Calvert on 01/15/2023 8:35 AM > Interpreting Provider: Jo Tena MD on 01/15/2023 10:43 AM Narrative 01/15/2023 10:43 AM INSPECTOR GLASS OR MIRROR PROCEDURE: ??CT CEREBRAL PERFUSION ANALYSIS DATE/TIME OF EXAM: ??01/14/2023 11:46 PM CLINICAL INFORMATION: None relevant/not provided if blank. Indication: R53.1: Weakness. Additional History: COMPARISON: None. TECHNIQUE: CT perfusion was obtained of the brain with intravenous contrast. Images were processed by RAPID software. CT dose reduction technique was used, including Automated Exposure Control. IV CONTRAST: IOPAMIDOL 76 % IV SOLN:75 mL FINDINGS: Cerebral perfusion abnormality identified in both frontal lobes, right greater than left. Volume of Tmax >6 seconds measuring about 14 mL, involving both frontal lobes, right greater than left. The volume of RCB of less than 30% measuring about 12 mL, involving both frontal lobes, right greater than left. Mismatch volume of about 2 mL. Procedure Note Jo Tena MD - 01/15/2023 PROCEDURE: CT CEREBRAL PERFUSION ANALYSIS DATE/TIME OF EXAM: 01/14/2023 11:46 PM CLINICAL INFORMATION: None relevant/not provided if blank. Indication: R53.1: Weakness. Additional History: COMPARISON: None. TECHNIQUE: CT perfusion was obtained of the brain with intravenous contrast. Images were processed by RAPID software. CT dose reduction technique was used, including Automated Exposure Control. IV CONTRAST: IOPAMIDOL 76 % IV SOLN:75 mL FINDINGS: Cerebral perfusion abnormality identified in both frontal lobes, right greater than left. Volume of Tmax >6 seconds measuring about 14 mL, involving both frontal lobes, right greater than left. The volume of RCBof less than 30% measuring about 12 mL, involving both frontal lobes, right greater than left. Mismatch volume of about 2 mL. IMPRESSION: CT perfusion abnormality in both frontal lobes, right greater than left, with mismatch volume of about 2 mL. Recommend further evaluation MR ofthe brain without contrast. CT angiography head and neck is not available at the time of interpretation. Edited by Ernestina Calvert on 01/15/2023 8:35 AM > Interpreting Provider: Jo Tena MD on 01/15/2023 10:43 AM Anna Da Silva MD CT ORDERABLES * TYPE + SCREEN PANEL (08/15/2020 4:39 PM CDT) Only the most recent of5 resultswithin the time period is included. ABO Rh O POS 08/15/2020 5:41 PM CDT [facility] Comment:History checked. Antibody Screen NEG 5:41 PM CDT [facility] Blood Bank BLOOD SPECIMEN / Unknown Venipuncture / Unknown 08/15/2020 4:39 PM CDT 08/15/2020 4:58 PM CDT Gabi Srivastava MD LAB - B LOOD BANK ORDERABLES [facility] [address] [place] [address] * (ABNORMAL) URINE MICROSCOPIC ONLY REFLEX TO CULTURE (08/15/2020 2:54 PM CDT) Only the most recent of2 resultswithin the time period is included. Reflex Status Culture to follow 08/15/2020 3:32 PM CDT [facility] RBC UA 3-5 None Seen, 0-2, 3-5 # /hpf 08/15/2020 3:32 PM CDT [facility] WBC UA 21-50(A) None Seen, 0-5 # /hpf 08/15/2020 3:32 PM CDT [facility] Bacteria UA Trace(A) None Seen 08/15/2020 3:32 PM CDT [facility] Squamous Epithelial Cells None Seen None Seen, 0-2, 3-5 /hpf 08/15/2020 3:32 PM CDT [facility] Mucus UA 1+ /LPF 08/15/2020 3:32 PM CDT [facility] Urine URINE SPECIMEN OBTAINED BY SINGLE CATHETERIZATION OF URINARY BLADDER / Unknown Collection / Unknown 08/15/2020 2:54 PM CDT 08/15/2020 3:23 PM CDT Narrative [facility] - 08/15/2020 3:32 PM CDT Gabi Srivastava MD LAB - U RINALYSIS ORDERABLES [facility] [address] [place], [place] [id number] * (ABNORMAL) URINALYSIS REFLEX MICROSCOPIC REFLEX CULTURE (08/15/2020 2:54 PM CDT) Only the most recent of2 resultswithin the time period is included. Color UA Straw Straw, Yellow 08/15/2020 3:32 PM CDT [facility] Clarity UA Clear Clear 08/15/2020 3:32 PM CDT [facility] Glucose UA Negative Negative 08/15/2020 3:32 PM CDT [facility] Bilirubin UA Negative Negative 08/15/2020 3:32 PM CDT [facility] Ketone UA Negative Negative 08/15/2020 3:32 PM CDT [facility] Specific [place] UA 1.006 1.005 - 1.030 08/15/2020 3:32 PM CDT [facility] Blood UA 1+(A) Negative 08/15/2020 3:32 PM CDT [facility] pH UA 6.0 5.0 - 8.0 pH 08/15/2020 3:32 PM CDT [facility] Protein UA Negative Negative 08/15/2020 3:32 PM CDT [facility] Urobilinogen UA Negative Negative mg/dL 08/15/2020 3:32 PM CDT [facility] Nitrite UA Negative Negative 08/15/2020 3:32 PM CDT [facility] Leukocyte UA 2+(A) Negative 08/15/2020 3:32 PM CDT [facility] Urine Microscopy Urine microscopy to follow 08/15/2020 3:32 PM CDT [facility] Reflex Status Culture to follow 08/15/2020 3:32 PM CDT [facility] Urine URINE SPECIMEN OBTAINED BY SINGLE CATHETERIZATION OF URINARY BLADDER / Unknown Collection / Unknown 08/15/2020 2:54 PM CDT 08/15/2020 3:23 PM CDT Narrative [facility] - 08/15/2020 3:32 PM CDT Gabi Srivastava MD LAB - U RINALYSIS ORDERABLES [facility] [address] [place] [address] * (ABNORMAL) CULTURE URINE (08/15/2020 2:54 PM CDT) Only the most recent of2 resultswithin the time period is included. Culture Urine >100,000 CFU/mL Escherichia coli(A) [place] 08/17/2020 7:14 AM CDT [facility] Urine URINE SPECIMEN OBTAINED BY SINGLE CATHETERIZATION OF URINARY BLADDER / Unknown Collection / Unknown 08/15/2020 2:54 PM CDT 08/15/2020 3:23 PM CDT Narrative [facility] - 08/17/2020 7:14 AM CDT Organism Antibiotic Method Susceptibility Escherichia coli Amikacin [place] <=2 ug/mL: Susceptible Escherichia coli Ampicillin [place] <=2 ug/mL: Susceptible Escherichia coli Ampicillin-sulbactam [place] <=2 ug/mL: Susceptible Escherichia coli Cefazolin [place] <=4 ug/mL: Susceptible Escherichia coli Cefepime [place] <=1 ug/mL: Susceptible Escherichia coli Ceftriaxone [place] <=1 ug/mL: Susceptible Escherichia coli Ciprofloxacin [place] <=0.25 ug/mL: Susceptible Escherichia coli Extended-Spectrum Beta-Lactamase [place] NEG ug/mL: Neg Escherichia coli Gentamicin [place] <=1 ug/mL: Susceptible Escherichia coli Meropenem [place] <=0.25 ug/mL: Susceptible Escherichia coli Nitrofurantoin [place] <=16 ug/mL: Susceptible Escherichia coli Piperacillin-tazobactam [place] <=4 ug/mL: Susceptible Escherichia coli Tobramycin [place] <=1 ug/mL: Susceptible Escherichia coli Trimethoprim-sulfame thoxaz ole [place] <=20 ug/mL: Susceptible Comment: Interpretive criteria are for cefazolin when cefazolin is used for therapy of uncomplicated UTI due to E. coli, K. pneumoniae, and P. mirabilis. May also be used to predict results for the oral agents cefaclor, cefdinir, cefpodoxime, cefprozil, cefuroxime, cephalexin, and lorcarbef when used to treat uncomplicated UTI due to E. coli, K. pneumoniae, and P. mirabilis. Gabi Srivastava MD LAB - M ICROBIOLOGY ORDERABLES [facility] [address] [place] [phone] * (ABNORMAL) COMPREHENSIVE METABOLIC PANEL (08/15/2020 1:11 PM CDT) Only the most recent of3 resultswithin the time period is included. [facility] Glucose 84 70 - 105 mg/dL 08/15/2020 2:31 PM CDT [facility] Sodium 139 136 - 145 mmol/L 08/15/2020 2:31 PM CDT [facility] Potassium 3.8 3.5 - 5.1 mmol/L 08/15/2020 2:31 PM CDT [facility] Chloride 108(H) 98 - 107 mmol/L 08/15/2020 2:31 PM CDT [facility] CO2 20(L) 23 - 31 mmol/L 08/15/2020 2:31 PM CDT [facility] Calcium 8.7 8.4 - 10.4 mg/dL 08/15/2020 2:31 PM CDT [facility] Anion Gap 11 8 - 18 mmol/L 08/15/2020 2:31 PM CDT [facility] BUN 9 7 - 18.7 mg/dL 08/15/2020 2:31 PM CDT [facility] Creatinine 0.72 0.57 - 1.11 mg/dL 08/15/2020 2:31 PM CDT [facility] Alkaline Phosphatase 110 40 - 150 U/L 08/15/2020 2:31 PM CDT [facility] ALT 43 0 - 61 U/L 08/15/2020 2:31 PM CDT [facility] AST 39(H) 5 - 34 U/L 08/15/2020 2:31 PM CDT [facility] Protein Total 7.2 6.4 - 8.3 gm/dL 08/15/2020 2:31 PM CDT [facility] Albumin 3.6 3.5 - 5.2 gm/dL 08/15/2020 2:31 PM CDT [facility] Bilirubin Total 0.3 0.2 - 1.2 mg/dL 08/15/2020 2:31 PM CDT [facility] eGFR by MDRD >60 >60 mL/min/1.7 3m2 08/15/2020 2:31 PM CDT [facility] eGFR by MDRD >60 >60 mL/min/1.7 3m2 08/15/2020 2:31 PM CDT [facility] Blood BLOOD SPECIMEN / Unknown Venipuncture / Unknown 08/15/2020 1:11 PM CDT 08/15/2020 1:37 PM CDT Gabi Srivastava MD LAB - C HEMISTRY ORDERABLES Performing Organization Address [facility]/State/[facility] Co de Phone Number [facility] [address] [place] [address] * IMAGING RADIOLOGY XRAY RESULTS ORDER (08/06/2020 12:31 PM CDT) Only the most recent of3 resultswithin the time period is included. Anatomical Region Laterality Modality Other Narrative 08/06/2020 12:31 PM CDT Ordered by an unspecified provider. Scanned Document IMAGING * PATHOLOGY TISSUE EXAM (STL) (08/03/2020 3:35 AM CDT) Only the most recent of2 resultswithin the time period is included. Case Report Surgical Pathology Report ? Case: [id number] ? Authorizing Provider: ??Betsy Acevedo MD ? Collected: ? 08/03/2020 03:35 AM ? Ordering Location: ? [facility] ? Received: ?08/03/2020 07:59 AM ? Pathologist: ? Ramesh Perla MD ? Specimens: ?? A) - Products of Conception ? B) - Placenta ? 08/06/2020 11:59 AM CDT [facility] Final Diagnosis Tissue labeled as products of conception: Fragments of endometrium, decidua and blood clot. Placenta, vaginal delivery, 39 weeks (457 g): Mature placenta membranes with no histopathologic abnormality. Three-vessel umbilical cord with no histopathologic abnormality. 08/06/2020 11:59 AM CDT [facility] Gross Description The requisition and specimen are identified with patient's name and date of . Received fresh in 2 containers, specimen A, products of conception is an aggregate of pink-hernandes soft tissue and blood clot, 19.5 x 11 x 2 cm. No hydropic villi or parts are identified grossly. Director Of [employer] sections submitted in cassette A1-A3. Received in formalin, specimen B, placenta is a placental disc with attached umbilical cord. The umbilical cord is inserted eccentrically, 4.2 cm from margin measuring 34.5 cm in length and 1.1-1.5 cm in diameter. The cord is trivascular and appropriately coiled. The membranes are inserted marginally and are hernandes to pink-hernandes, mildly hemorrhagic. The placental disc is 457 g measuring 17.5 x 15 x 3 cm thick. The surface is blue to green-hernandes with normal vasculature. The maternal surface is disrupted but appears complete. Sectioning shows red-hernandes, spongy cut surfaces with no other lesions. Director Of [employer] sections submitted as follows: A1-umbilical cord and membrane roll, A2-placental disc central, A3-placental disc peripheral. LJ 08/06/2020 11:59 AM [facility] Microscopic Description Microscopic examination was performed. 08/06/2020 11:59 AM [facility] Disclaimer All histochemical and/or immunohistochemical results are interpreted with controls that demonstrate appropriate staining reactions before reporting results. Note on use of immunocytochemistry reagents: This test was developed and its performance characteristic determined by [facility], Department of Laboratory Medicine. It has not been cleared or approved by the U.S. Food and Drug Administration (FDA). The FDA has determined that such clearance or approval is not necessary. The test is used for clinical purpose. It should not be regarded as investigational or for research. This laboratory is certified to perform high complexity testing. The performance characteristics of the IHC/JUANA assays have been validated on formalin-fixed paraffin embedded tissues only. The assays have not been validated on decalcified tissues. Results should be interpreted with caution. 08/06/2020 11:59 AM [facility] Embedded Images 08/06/2020 11:59 AM T [facility] Pathology/Cytology ENTIRE PLACENTA / Unknown 08/03/2020 3:35 AM CDT 08/03/2020 7:59 AM CDT Comment:Pre-op diagnosis: Retained placenta, unspecified portion of placenta [O73.0] Miscellaneous samples (specimen) ENTIRE PLACENTA / Unknown 08/03/2020 3:35 AM CDT 08/03/2020 7:59 AM CDT Betsy Acevedo MD LAB - PATHOLOGY/CYTO LOGY ORDERABLES [facility] [address] [phone] * Neuraxial Block (08/03/2020 1:29 AM CDT) Narrative Bruno Francisco MD - 08/03/2020 1:29 AM CDT Roni Segura APRN-TURBINE ENGINE ASSEMBLER ? 08/03/2020 ??2:11 AM Neuraxial Block Note ?? Pre-Procedure: ?? Procedure Name: ??Neuraxial Block Patient Location: ??OB Indications: ??at patient's request and labor analgesia Pre-Anesthetic Checklist: ??Patient identified, IV Checked, Risks and benefits discussed, Surgical consent verified, Monitors and equipment, Site examined, Pre-op evaluation done, Time-out performed, Informed consent obtained, Questions answered/anesthesia questions answered and Allergies reviewed Anticoagulation/ Anti-thrombosis status confirmed? ??Yes Supplemental O2: ??room air Monitors: ??BP and continuous pluse ox Patient Condition: ??awake Patient Sedated? ??No Procedure: ?? Block Type: ??Spinal Prep: ??Betadine Sterile Field: ??mask, cap/hat, sterile established and sterile gloves Approach: ??midline Skin was localized? ??Yes Skin localized with: lidocaine (XYLOCAINE MPF) 1 % injection, 3 mL Spinal Block: ?? Needle Type: ??spinal needle Needle Gauge: ??25 Needle Length: ??90 mm Placement Site: ??L2-3 Number of Attempts: ??1 CSF: ??free flow Degree of difficulty: ??none Procedure Tolerance: ??tolerated well Sensory Level: ??T6 Motor Blockade: ??Yes Position post procedure: ??head of bed elevated 30 degrees Vital Signs: ?? heart tones monitored and stable throughout., Vital signs moniitored and stable throughout. ??See nursing vitals flowsheet for details. Start Time: ??08/03/2020 1:25 AM End Time: ??08/03/2020 1:29 AM Total Time: ??4 Staff: ?? Anesthesia Provider: ??Roni Segura APRN-JUAN ?? - ?? performed the procedure Additional Notes: ??Insignificant spinal. Free flow CSF and no pain or parasthesia with injection of medications. Bruno Francisco MD GENERAL ANESTHESIA ORDERABLES * (ABNORMAL) BLOOD GASES CORD BARB (08/02/2020 6:55 PM CDT) pH Cord Venous 7.37 7.28 - 7.40 pH 08/02/2020 7:02 PM CDT [facility] Comment:H pCO2 Cord Venous 37 35 - 45 mm hg 08/02/2020 7:02 PM CDT [facility] pO2 Cord Venous 31 22 - 33 mm hg 08/02/2020 7:02 PM CDT [facility] HCO3 Cord Venous 21(L) 22 - 24 mmol/L 08/02/2020 7:02 PM CDT [facility] Comment:H BE Cord Venous -3.5 mmol/L 08/02/2020 7:02 PM CDT [facility] O2 Saturation Cord Venous 74 % 08/02/2020 7:02 PM CDT [facility] Davon's Test N/A 08/02/2020 7:02 PM CDT [facility] Sample Site UMB 08/02/2020 7:02 PM CDT [facility] Sample Type Cord Blood Venous 08/02/2020 7:02 PM CDT [facility] Aircraft Powerplant Repairer ID [id number] 08/02/2020 7:02 PM CDT [facility] Notified Who estrellita wyatt l&eduardo 08/02/2020 7:02 PM CDT [facility] Notification Time 08/02/2020 19:01 08/02/2020 7:02 PM CDT [facility] Notified By helen jane 08/02/2020 7:02 PM CDT [facility] Blood CORD BLOOD SPECIMEN / Unknown 08/02/2020 6:55 PM CDT 08/02/2020 6:55 PM CDT Betsy Acevedo MD LAB - BLOOD GASES OR DERABLES [facility] [address] [phone] * (ABNORMAL) BLOOD GASES CORD ARTERIAL (08/02/2020 6:55 PM CDT) pH Cord Arterial 7.25 7.20 - 7.34 pH 08/02/2020 7:01 PM CDT [facility] pCO2 Cord Arterial 50 45 - 55 mm hg 08/02/2020 7:01 PM CDT [facility] Comment:H pO2 Cord Arterial 21 12 - 25 mm hg 08/02/2020 7:01 PM CDT [facility] Comment:H HCO3 Cord Arterial 21.6(L) 22.0 - 24.0 mmol/L 08/02/2020 7:01 PM CDT [facility] Comment:L BE Cord Arterial -6.1 mmol/L 08/03/19 7:01 PM CDT [facility] O2 Saturation Cord Arterial 42 % 08/02/2020 7:01 PM CDT [facility] Davon's Test N/A 08/02/2020 7:01 PM CDT [facility] Sample Site UMB 08/02/2020 7:01 PM CDT [facility] Sample Type Cord blood Arterial 08/02/2020 7:01 PM CDT [facility] RESP THERAPY Aircraft Powerplant Repairer ID [id number] 08/02/2020 7:01 PM CDT [facility] Notified Who estrellita wyatt l&eduardo 08/02/2020 7:01 PM CDT [facility] Notification Time 08/02/2020 19:00 08/02/2020 7:01 PM CDT [facility] Notified By helen choudhary rt 08/02/2020 7:01 PM CDT [facility] Blood, arterial CORD BLOOD SPECIMEN / Unknown 08/02/2020 6:55 PM CDT 08/02/2020 6:55 PM CDT Betsy Acevedo MD LAB - BLOOD GASES OR DERABLES [facility] [address] [place] [address], [place] [phone] * EPIDURAL BLOCK PERF (08/02/2020 4:25 PM CDT) Narrative Luis Antonio Hernandez APRN-CRNA - 08/02/2020 4:25 PM CDT Luis Antonio Hernandez APRN-CRNA ? 08/02/2020 ??4:26 PM Neuraxial Block Note ?? Pre-Procedure: ?? Procedure Name: ??Neuraxial Block Patient Location: ??OB Indications: ??labor analgesia Pre-Anesthetic Checklist: ??Patient identified, IV Checked, Risks and benefits discussed, Surgical consent verified, Monitors and equipment, Site examined, Pre-op evaluation done, Time-out performed, Informed consent obtained, Questions answered/anesthesia questions answered and Allergies reviewed Anticoagulation/ Anti-thrombosis status confirmed? ??Yes Supplemental O2: ??room air Monitors: ??BP, continuous pluse ox and EKG Patient Condition: ??awake Patient Sedated? ??No Procedure: ?? Block Type: ??Epidural Prep: ??Betadine Sterile Field: ??mask, cap/hat, sterile established and sterile gloves Approach: ??midline Skin was localized? ??Nursing documentation on MAR Skin localized with: ??Lidocaine 1% and 3 mL Epidural Block: ?? Is this procedure for postop pain? ??No Needle Type: ??Tuohy Needle gauge: ??18 G Needle length: ??90 mm Placement Site: ??L2-L3 Number of Attempts: ??1 Loss of Resistance: ??7 ?? air Catheter length at skin (cm): ??13 CSF Aspirated from catheter: ??No Blood Aspirated: ??No Test Dose: ??lidocaine 1.5% with 1-200,000 epinephrine ?? 5 ??mL at ??08/02/2020 3:17 PM Test Dose Response: ??No Epidural Local Anesthetic Used? ??No Epidural Infusion Medications: ? Ropivacaine: ??0.2% with Fentanyl 2mcg/mL in NS , ??3 cc (mL) ??at 12 mL/hr Degree of difficulty: ??none Procedure Tolerance: ??tolerated well Sensory Level: ??T6 Motor Blockade: ??No Position post procedure: ??left uterine displacement Vital Signs: ??Vital sings monitored and stable throughout. ??See anesthesia record for details., Vital signs moniitored and stable throughout. ??See nursing vitals flowsheet for details., heart tones monitored and stable throughout. Start Time: ??08/02/2020 3:04 PM Staff: ?? Anesthesia Provider: ??Luis Antonio Hernandez, SHUTDOWN PLANNER-TURBINE ENGINE ASSEMBLER ?? - ?? performed the procedure Bruno Francisco MD GENERAL ANESTHESIA ORDERABLES * SYPHILIS ANTIBODY CASCADING REFLEX (08/02/2020 10:00 AM CDT) Only the most recent of3 resultswithin the time period is included. Treponema pallidum Antibody Non Reactive Non Reactive 08/02/2020 11:22 AM CDT [facility] Comment: No Laboratory evidence of syphilis infection. ?? Note: ??Circulating antibodies may be low or undetectable in early infection. ??If recent exposure is suspected, re-draw sample in 2-4 weeks and repeat testing. Blood BLOOD SPECIMEN / Unknown Venipuncture / Unknown 08/02/2020 10:00 AM CDT 08/02/2020 10:05 AM CDT Gabi Pérez MD LAB - SEROLOGY ORDERABLES Performing Organization Address City/State/[facility] Co de Phone Number [facility] [address] [phone] * MFM BIOPHYSICAL PROFILE W NST (07/31/2020 8:23 AM CDT) Only the most recent of18 resultswithin the time period is included. Anatomical Region Laterality Modality Other 07/31/2020 8:23 AM CDT Narrative 07/31/2020 4:24 PM CDT ? [facility] ? [facility] ?PHONE: ??FAX: Pat. Name: ?KALINA AKBAR Pat. No: ?[id number] Study Date: ?? 07/31/2020 ??8:23am , Age: ? 1995, 25 Pregnancies: ?? 3, Para 2 Height: ? 67 in Weight: ? 230 lb LMP: ?11/03/2019 GA by LMP: ?38w5d GA by Base: ?? 38w5d ?? CRISTIAN: 08/09/2020 GA Selected: ??38w5d (LMP) CRISTIAN: ?08/09/2020 Referring MD: Rio, , [facility] Manager Ethics: ??Suasn Nova, RDMS, RDCS CPT4: ? [id number] BMI: ?36.02 Hist/Ind: ? Type 2 diabetes ?Class II obesity ?Asthma ?Prior ?Family history of Down syndrome ?NIPT: low-risk, female (per patient report) ?Short interval ?Normal echo Heart Rate: 161 bpm Amniotic Fluid Index: 09.4cm (07.2-23.0) Q1: 2.0cm ??Q2: 3.3cm ??Q3: 0.9cm ??Q4: 3.2cm ?? Biophysical Profile: 12/09 Breathin ?? Tone: 2 ?? NST: 2 Movement: ??2 ?? AFV: ??2 EVAL, PLACENTA Presentation: cephalic Placenta: anterior Heart Rate: 161 bpm Amniotic Fluid Volume: normal CLINICAL SUMMARY Study Number: 12 ?? A single fetus is seen in cephalic presentation. ??The amniotic fluid volume is within normal limits. ?? The FHR baseline is 145 bpm during today's reactive NST. ??The FHR variability was moderate. ?? IMPRESSION: Single, live, intrauterine at 38w5d Amniotic fluid volume: within normal limits ?? Biophysical profile: Reassuring ?? RECOMMEND: Continue testing as recommended Patient scheduled for inductoin of labor on 08/02 Thank you for allowing us the opportunity to care for your patient. ?? Ankita Collins MD <Electronic Signature> ??07/31/2020 04:24pm Alejo Ramos MD [facility] ORDERABLES * (ABNORMAL) URINALYSIS - POCT (IP) BEAKER INTERFACE (07/26/2020 9:07 AM CDT) Only the most recent of8 resultswithin the time period is included. Color UA POCT Dark Yellow Straw, Yellow, Dark Yellow, Light Yellow 07/26/2020 9:09 AM CDT [facility] Clarity UA POCT Clear 9:09 AM CDT [facility] Specific [place] UA POCT 1.025 1.005 - 1.030 07/26/2020 9:09 AM CDT [facility] pH UA POCT 7.0 5.0 - 8.0 pH 07/26/2020 9:09 AM CDT [facility] Protein UA POCT Negative Negative 9:09 AM CDT [facility] Blood UA POCT Negative Negative 07/26/2020 9:09 AM CDT [facility] Leukocyte UA POCT Trace(A) Negative 07/26/2020 9:09 AM CDT [facility] Nitrite UA POCT Negative Negative 9:09 AM CDT [facility] Glucose UA POCT Negative Negative 9:09 AM CDT [facility] Ketone UA POCT Negative Negative 07/26/2020 9:09 AM CDT [facility] Bilirubin UA POCT Negative Negative 07/26/2020 9:09 AM CDT [facility] Urobilinogen UA POCT 0.2 0.1 - 1.0 EU/dL 07/26/2020 9:09 AM CDT [facility] Urine URINE / Unknown 07/26/2020 9 :07 AM CDT 07/26/2020 9:09 AM CDT Gabi Srivastava MD LAB - P OINT OF CARE ORDERABLES Performing Organization Address City/State/[facility] Co de Phone Number [facility] [address] [place] [address] * (ABNORMAL) HIV-1 HIV-2 ANTIBODY DIFFERENTIATION (06/04/2020 9:10 AM CDT) Only the most recent of3 resultswithin the time period is included. HIV-1 Antibody Negative Negative 06/05/2020 4:20 PM CDT [facility] HIV-2 Antibody Negative Negative 06/05/2020 4:20 PM CDT [facility] Interpretation HIV-1 HIV-2 Antibody HIV Indetermina te(A) 06/05/2020 4:20 PM CDT [facility] Blood BLOOD SPECIMEN / Unknown Venipuncture / Unknown 06/04/2020 9:10 AM CDT 06/04/2020 9:27 AM CDT Narrative [facility] - 06/05/2020 4:20 PM CDT HIV-1 RNA testing will be performed. ??See separate report. Suha Vicente MD LAB - CHEMISTRY ORD ERABLES [facility] [address] [place] [address]. [place] [address] * HIV-1 RNA QUAL (06/04/2020 9:10 AM CDT) Only the most recent of2 resultswithin the time period is included. [facility] HIV-1 RNA Qualitative TMA Negative Negative 06/07/2020 5:08 PM CDT [facility] ([facility]) Comment:Negative for HIV-1 R NA Blood BLOOD SPECIMEN / Unknown Venipuncture / Unknown 06/04/2020 9:10 AM CDT 06/05/2020 4:20 PM CDT Narrative [facility] ([facility]) - 06/07/2020 5:08 PM CDT Performed at: ??01 - [facility] ??[id number] Integration Architect: Jerome Johnson MD, Phone: ??[phone] Suha Vicente MD LAB - SEROLOGY ORDE DANIEL Performing Organization Address City/[facility]/ZIP Co de Phone Number [facility] ([facility]) [address] [place] [address] * (ABNORMAL) HIV-1 HIV-2 ANTIBODY + HIV P24 AG PANEL (06/04/2020 9:10 AM CDT) Only the most recent of3 resultswithin the time period is included. [facility] HIV1/2 Ab + P24 Ag REACTIVE( A) Non Reactive 06/04/2020 1:42 PM CDT [facility] Blood BLOOD SPECIMEN / Unknown Venipuncture / Unknown 06/04/2020 9:10 AM CDT 06/04/2020 9:27 AM CDT Narrative [facility] - 06/04/2020 1:42 PM CDT HIV-1/HIV-2 Antibody + Antigen screening test is reactive, but is NOT DIAGNOSTIC. HIV-1/HIV-2 AB Differentiation assay, a supplemental test, will be performed. ?? If HIV-1/HIV-2 Differentiation testing is negative, RNA testing will be performed. See separate reports. Suha Vicente MD LAB - CHEMISTRY ORD ERABLES [facility] [address] [place] [address] * SONOGRAM - COMPLETE (05/21/2020 7:36 AM CDT) Only the most recent of8 resultswithin the time period is included. Anatomical Region Laterality Modality Other 05/21/2020 7:36 AM CDT Narrative 05/21/2020 9:27 AM CDT ?[facility] ? [facility] [place] ? [facility] ?PHONE: ??FAX: Pat. Name: ?AKBAR GILMAN Pat. No: ?[id number] Study Date: ?? 05/21/2020 ??7:36am , Age: ? 1995, 25 Pregnancies: ?? 3, Para 2 Height: ? 67 in Weight: ? 230 lb LMP: ?11/03/2019 GA by LMP: ?28w4d GA by Base: ?? 28w4d ?? CRISTIAN: 08/09/2020 GA by US: ? 29w5d ?? CRISTIAN: 08/01/2020 GA Selected: ??28w4d (LMP) CRISTIAN: ?08/09/2020 Referring MD: Rio, MD, [facility] Manager Ethics: ??Lidia Lemos RDMS CPT4: ? 17438 BMI: ?36.02 Hist/Ind: ? Type 2 diabetes ?Class II obesity ?Asthma ?Prior CD ?Fam Hx of Down syndrome ?NIPT: low-risk, female (per patient) ?Short interval ? Echo done 05/04/20 MEASUREMENTS & AGE ? GROWTH EVALUATION Measurement ??GA ? Range ? Srce %for GA Ratios ----- ---- ------- BPD ??7.5 cm 29w6d (49w3z-42n5f) Hadl BPD 77% FL/BPD 0.73 (0.71 - 0.87) HC ??28.5 cm 31w2d (09w2n-38a7a) Hadl HC ??90% FL/AC ??0.22 (0.20 - 0.24) AC ??24.6 cm 28w6d (17s4u-08m2y) Hadl AC ??50% HC/AC ??1.16 (0.99 - 1.18) FL ?? 5.5 cm 28w6d (91t2r-94g2n) Hadl FL ??42% CI ? 0.71 (0.70 - 0.86) GA for sonogram 29w5d (04m6k-48v5y) ?? Weight Estimate: based on (BPD,HC,AC,FL) Avg ?Weight: 1346 gm (1150-1543gm) Had ? : 2lbs, 15oz ? Normal: 1312 gm (984- 1640gm) Hadl ? Wt% ? 59% for 28w4d Heart Rate: 123 bpm Amniotic Fluid Index: 11.8cm (09.3-23.0) Q1: 3.8cm ??Q2: 2.9cm ??Q3: 3.7cm ??Q4: 1.4cm ?? EVAL, PLACENTA Presentation: breech Placenta: anterior Heart Rate: 123 bpm Amniotic Fluid Volume: normal Anatomy!Normal!Abnormal!Suboptimal!Prev. Seen!Comments Stomach ?! ?? x ??! ?! ?! ?! Kidneys ?! ?? x ??! ?! ?! ?! Bladder ?! ?? x ??! ?! ?! ?! CLINICAL SUMMARY Study Number: 5 ?? No abnormalities were detected during today's limited review of the anatomy. IMPRESSION: ?? 1) Rae gestation, 28w4d 2) Biometry is consistent with appropriate growth 3) The amniotic fluid volume is within normal limits NOTE: The patient was advised that ultrasound does not allow detection of all structural or chromosomal abnormalities. ?? RECOMMEND: ?? Follow up in 4 weeks for a repeat growth and amniotic fluid volume assessment and initiation of twice weekly NSTs Thank you for allowing us the opportunity to care for your patient. Hayley Caba MD <Electronic Signature> ??05/21/2020 09:25am Alejo Ramos MD [facility] ORDERABLES * GLUCOSE PROTEIN KETONE URINE - POINT OF CARE (05/07/2020 8:40 AM [facility]) Only the most recent of18 resultswithin the time period is included. Glucose UA neg Negative [facility] Protein UA trace Negative [facility] Ketone UA neg Negative [facility] QC Verified Yes Yes [facility] POC T TESTING Urine URINE / Unknown 05/07/2020 8 :40 AM [facility] Alejo Ramos MD LAB - POINT OF CARE ORDERABLES Performing Organization Address City/State/[facility] Co de Phone Number [facility] [address] [phone] * ECHO (05/04/2020 2:05 PM [facility]) Anatomical Region Laterality Modality Other 05/04/2020 2:05 PM [facility] Narrative 05/04/2020 3:58 PM [facility] ?[facility] ? - [place] ? [facility] ?PHONE: ??FAX: Pat. Name: ?AKBAR GILMAN Pat. No: ?[id number] Study Date: ?? 05/04/2020 ??2:05pm , Age: ? 1995, 25 Pregnancies: ?? 3, Para 2 Height: ? 67 in Weight: ? 230 lb LMP: ?11/03/2019 GA by LMP: ?26w1d GA by Base: ?? 26w1d ?? CRISTIAN: 08/09/2020 GA Selected: ??26w1d (From [facility]) CRISTIAN: ?08/09/2020 Referring MD: Rio, , [facility] Manager Ethics: ??Susan Nova, RDMS, RDCS CPT4: ? [id number] BMI: ?36.02 Hist/Ind: ? Echo ?Type 2 diabetes ?Class II obesity ?Asthma ?Prior CD ?Fam Hx of Down syndrome ?NIPT: low-risk, female (per patient) ?Short interval Heart Rate: 155 bpm Amniotic Fluid Index: 04.8cm (Deepest Pocket) EVAL, PLACENTA Presentation: breech Placenta: anterior Heart Rate: 155 bpm Amniotic Fluid Volume: normal DOPPLER Umbilical - Mid Cord S/D ??2.71(2.23 - 4.63) ? PI ?? 0.96 (0.79 - 1.40) ? Ductus Venosus PI ?? 0.51 (0.31 - 0.82) ? Pulmonic Valve PSV ??80.0cm/s Ductus Arteriosus PSV ??102.0cm/s Anatomy!Normal!Abnormal!Suboptimal!Prev. Seen!Comments Cranium ?! ?! ?! ?! ? x ?! Mdl (CSP/Thal! ?! ?! ?! ? x ?! Ventricles ?? ! ?! ?! ?! ? x ?! Choroid Plexu! ?! ?! ?! ? x ?! Cerebellum ?? ! ?! ?! ?! ? x ?! Cerebellar Ve! ?! ?! ?! ? x ?! Cisterna M. ??! ?! ?! ?! ? x ?! Nuchal Fold ??! ?! ?! ?! ? x ?! Orbits ? ! ?! ?! ?! ? x ?! Profile ?! ?! ?! ?! ? x ?! Nasal Bone ?? ! ?! ?! ?! ? x ?! Lip ?! ?! ?! ?! ? x ?! Maxilla ?! ?! ?! ?! ? x ?! Mandible ? ! ?! ?! ?! ? x ?! Neck ? ! ?! ?! ?! ? x ?! Spine ?! ?! ?! ?! ? x ?! Lungs ?! ?? x ??! ?! ?! ? x ?! 4 Chamber Hea! ?? x ??! ?! ?! ? x ?! LVOT ? ! ?? x ??! ?! ?! ? x ?! RVOT ? ! ?? x ??! ?! ?! ? x ?! 3 Vessel View! ?? x ??! ?! ?! ? x ?! 3 Vessel Trac! ?? x ??! ?! ?! ? x ?! Cross-over ?? ! ?? x ??! ?! ?! ? x ?! Ductal Arch ??! ?? x ??! ?! ?! ? x ?! Aortic Arch ??! ?? x ??! ?! ?! ? x ?! Caval View ?? ! ?? x ??! ?! ?! ? x ?! Situs ?! ?? x ??! ?! ?! ? x ?! Diaphragm ?! ?! ?! ?! ? x ?! Stomach ?! ?? x ??! ?! ?! ? x ?! Liver ?! ?! ?! ?! ? x ?! Bowel ?! ?! ?! ?! ? x ?! Kidneys ?! ?? x ??! ?! ?! ? x ?! Bladder ?! ?? x ??! ?! ?! ? x ?! 3 Vessel Cord! ?! ?! ?! ? x ?! Cord In! ?! ?! ?! ? x ?! Upper Extremi! ?! ?! ?! ? x ?! Hands ?! ?! ?! ?! ? x ?! Lower Extremi! ?! ?! ?! ? x ?! Feet ? ! ?! ?! ?! ? x ?! External Audrey! ?! ?! ?! ? x ?! Placental Cor! ?! ?! ?! ? x ?! CLINICAL SUMMARY Study Number: 4 ?? ECHOCARDIOGRAM Indication: ??pre gestational diabetes A 2-D, pulse wave and color Doppler flow mapping echocardiogram was performed. The quality of the study was technically fair and was limited by central obesity and positioning. Findings: Structural anatomy Situs: Situs solitus with levocardia. ?? Chambers: Atrioventricular and ventriculoarterial concordance. The atria appeared normal in size. There was a patent foramen ovale which bowed from from right to left. The ventricles were normal in size with appropriate wall thickness. The ventricular septum appeared grossly intact. ??No pericardial or pleural effusion was observed. Arteries: The great vessels are normally related. The branch pulmonary arteries were confluent. A ductal arch was identified. The aortic arch appeared normal. Veins: Systemic venous return was normal appearing. ??At least two pulmonary veins at the level of the 4 chamber view were demonstrated with appropriate waveforms. Doppler studies: Atrioventricular valves: There were normal mitral and tricuspid inflow patterns. No gross mitral insufficiency. ??There was mild tricuspid insufficiency demonstrated which is a common finding. Aorta/Pulmonary: ??Normal flow across the pulmonary valves. ??Flow across the aortic valve was suboptimally demonstrated but is not expected to be abnormal. ??Normal color flow pattern in the transverse aortic arch. ??Color flow in the ductus arteriosus was suboptimally demonstrated in the long axis but appropriate in the three-vessel trachea view. ?? Normal waveform of the ductus venosus and the umbilical artery. ?? Rhythm: No arrhythmia detected. IMPRESSION: Single, live intrauterine at 26w1d ?? Amniotic fluid volume: within normal limits ?? No suspected major cardiac anomaly Note: ?? ultrasound is limited in the ability to detect or exclude small, cardiac septal defects, anomalous pulmonary venous return as well as coarctation of the aorta. RECOMMEND: Ultrasound in 2 weeks for growth Thank you for allowing us the opportunity to care for your patient. ?? Ankita Collins MD <Electronic Signature> ??05/04/2020 03:56pm Alejo Ramos MD [facility] ORDERABLES * CHLAMYDIA + GC AMPLIFIED PROBE (STL) (04/09/2020 8:52 AM [facility]) Only the most recent of2 resultswithin the time period is included. Chlamydia Amplified Probe Negative Negative 04/09/2020 9:57 PM [facility] GC Amplified Probe Negative Negative 04/09/2020 9:57 PM [facility] Microbiology URINE / Unknown Collection / Unknown 04/09/2020 8:52 AM [facility] 04/09/2020 9:44 AM [facility] Narrative [facility] - 04/09/2020 9:57 PM [facility] Results based on detection/no detection of ribosomal RNA by amplified method. Suha Vicente MD LAB - MICROBIOLOGY ORDERABLES [facility] [address] [phone] * TRICHOMONAS RAPID TEST (03/12/2020 9:24 AM [facility]) Pathologist [facility] Trichomonas Rapid Test Negative Negative 03/12/2020 10:03 AM [facility] Microbiology VAGINAL SWAB / Unknown Collection / Unknown 03/12/2020 9:24 AM [facility] 03/12/2020 9:46 AM [facility] Ivan Weathers MD LAB - MICROBIO LOGY ORDERABLES [facility] [address] [place] [address] * PROTEIN CREATININE RATIO URINE TIMED PNL (03/12/2020 8:17 AM [facility]) [facility] Volume 24 Hour Urine 1,050 mL 03/12/2020 10:24 AM [facility] Collection Time Hours 24 hrs 03/12/2020 10:24 AM [facility] Protein Urine 7.1 <11.9 mg/dL 03/12/2020 10:24 AM [facility] Creatinine Urine 94.33 mg/dL 03/12/2020 10:24 AM [facility] Protein/Creatin ine Ratio Urine 0.08 03/12/2020 10:24 AM [facility] Urine TIMED URINE SPECIMEN / Unknown Timed Urine Volume Measurement / Unknown 03/12/2020 8:17 AM [facility] 03/12/2020 10:03 AM [facility] Alejo Ramos MD LAB - URINE CHEMISTR Y ORDERABLES Performing Organization Address [facility] Co de Phone Number [facility] [address] [place], [place] [phone] * PROTEIN URINE TIMED QUANTITATIVE (03/12/2020 8:17 AM [facility] Volume 24 Hour Urine 1,050 mL 03/12/2020 10:24 AM [facility] Collection Time Hours 24 hrs 03/12/2020 10:24 AM [facility] Protein 24 Hour Urine 75 <300 mg/24hr 03/12/2020 10:24 AM [facility] Protein Urine 7.1 <11.9 mg/dL 03/12/2020 10:24 AM [facility] Urine TIMED URINE SPECIMEN / Unknown Timed Urine Volume Measurement / Unknown 03/12/2020 8:17 AM [facility] 03/12/2020 10:03 AM [facility] Ale[facility] Ramos MD LAB - URINE CHEMISTR Y ORDERABLES Performing Organization Address City/[facility] Co de Phone Number [facility] [address] [place] [address] * CREATININE URINE TIMED (03/12/2020 8:17 AM [facility] Volume 24 Hour Urine 1,050 mL 03/12/2020 10:24 AM [facility] Collection Time Hours 24 hrs 03/12/2020 10:24 AM [facility] Creatinine Urine 94.33 mg/dL 03/12/2020 10:24 AM [facility] Creatinine 24 Hour Urine 990 710-1,650 mg/24hr 03/12/2020 10:24 AM [facility] Urine TIMED URINE SPECIMEN / Unknown Timed Urine Volume Measurement / Unknown 03/12/2020 8:17 AM [facility] 03/12/2020 10:03 AM [facility] Ale[facility] Ramos MD LAB - URINE CHEMISTR Y ORDERABLES [facility] [address] [place] [address] * DRUG SCREEN TOX URINE PANEL (02/13/2020 9:38 AM [facility] Amphetamines Screen Urine Not detected Not detected 02/13/2020 10:35 AM [facility] Barbiturates Screen Urine Not detected Not detected 02/13/2020 10:35 AM [facility] Benzodiazepines Screen Urine Not detected Not detected 02/13/2020 10:35 AM [facility] Cannabinoids Screen Urine Not detected Not detected 02/13/2020 10:35 AM [facility] Cocaine Screen Urine Not detected Not detected 02/13/2020 10:35 AM [facility] Fentanyl Urine Not detected Not detected 02/13/2020 10:35 AM [facility] Methadone Screen Urine Not detected Not detected 02/13/2020 10:35 AM [facility] Opiate Screen Urine Not detected Not detected 02/13/2020 10:35 AM [facility] Phencyclidine Screen Urine Not detected Not detected 02/13/2020 10:35 AM [facility] Urine URINE / Unknown Collection / Unknown 02/13/2020 9:38 AM [facility] 02/13/2020 9:58 AM [facility] Narrative [facility] - 02/13/2020 10:35 AM [facility] This drug screen is designed for MEDICAL purposes only. It is not to be used for legal purposes, including but not limited to worker's comp, police investigations, occupational issues, child custody, etc. ??Any positive result is only presumptive and must be confirmed with a separate confirmatory test ordered by the physician. Drug Screening Test Cutoff Values: AMPHETAMINES ?1000 ng/mL BARBITURATES ? 200 ng/mL BENZODIAZEPINES ?200 ng/mL CANNABINOIDS(THC) ?? 50 ng/mL COCAINE ?300 ng/mL FENTANYL ? 1 ng/mL METHADONE ?300 ng/mL OPIATES ?300 ng/mL PHENCYCLIDINE(PCP) ??25 ng/mL Alejo Ramos MD LAB - URINE CHEMISTR Y ORDERABLES Performing Organization Address [facility] de Phone Number [facility] [address] [place] [address] * HIV-1 RNA PCR QUANTITATIVE NON GRAPHICAL (02/13/2020 9:37 AM [facility]) [facility] HIV-1 RNA Quantitative PCR <20 copies/mL 02/16/2020 11:06 PM [facility] Comment: HIV-1 RNA not detected The reportable range for this assay is 20 to 10,000,000 copies HIV-1 RNA/mL. log10 HIV-1 RNA Copies/mL TNP [id number]/ mL 02/16/2020 11:06 PM [facility] Comment: Unable to calculate result since non-numeric result obtained for component test. Blood BLOOD SPECIMEN / Unknown Lab Venipuncture / Unknown 02/13/2020 9:37 AM [facility] 02/15/2020 12:41 PM [facility] Narrative [facility] - 02/16/2020 11:06 PM [facility] Performed at: ??01 - [address] ??[id number] Integration Architect: Jerome Johnson MD, Phone: ??[phone] Alejo Ramos MD LAB - SEROLOGY ORDER LOPEZ Performing Organization Address [facility] de Phone Number [facility] ([facility]) [address] [place] [address] * HEMOGLOBIN ELECTROPHORESIS (02/13/2020 9:37 AM [facility]) [facility] Hemoglobin A1 97.2 97.1 - 99.1 % 02/15/2020 11:12 AM [facility] Hemoglobin F 0.0 0.0 - 2.0 % 02/15/2020 11:12 AM [facility] Hemoglobin S 0.0 <=0.0 % 02/15/2020 11:12 AM [facility] Hemoglobin C 0.0 <=0.0 % 02/15/2020 11:12 AM [facility] Hemoglobin A2 2.8 0.9 - 2.9 % 02/15/2020 11:12 AM [facility] Interpretation Normal Interpretation 02/15/2020 11:12 AM [facility] Blood BLOOD SPECIMEN / Unknown Venipuncture / Unknown 02/13/2020 9:37 AM [facility] 02/13/2020 9:58 AM [facility] Alejo Ramos MD LAB - CHEMISTRY STEFANIA SANCHEZ [facility] [address] [place] [address] * HIV-1 HIV-2 ANTIBODY W/ REFLX CONFIRM (12/19/2019) HIV-1/HIV-2 Non Reactive Blood BLOOD SPECIMEN / Unknown Historical Provider LAB - SEROLOGY OR DERABLES * PROFILE I W/ HBSAG (12/08/2019) ABO O Hepatitis B Virus Surface Antigen Non Reactive Hematocrit 36.9 Hemoglobin 11.9 Platelet Count 232 Rh Type Positive RPR Non Reactive Rubella Antibody Immune Blood BLOOD SPECIMEN / Unknown Historical Provider LAB - CHEMISTRY O RDERABLES * HCG URINE QUALITATIVE - POINT OF CARE (03/07/2019 12:06 PM [facility]) HCG Qual Urine Negative Negative [facility] QC Verified Yes Yes [facility] POC T TESTING Urine URINE / Unknown 03/07/2019 1 2:06 PM [facility] Renetta Flores SHUTDOWN PLANNER-HANDLE SANDER OPERATOR LAB - POINT OF CA RE ORDERABLES [facility] [address] [place], [place] [address] [phone] * (ABNORMAL) HGB HCT PANEL (01/22/2019 1:12 PM [facility]) Only the most recent of2 resultswithin the time period is included. Hemoglobin 7.8(L) 12.0 - 15.6 gm/dL 01/22/2019 2:14 PM [facility] Hematocrit 24.6(L) 35.9 - 45.5 % 01/22/2019 2:14 PM [facility] Blood BLOOD SPECIMEN / Unknown Venipuncture / Unknown 01/22/2019 1:12 PM [facility] 01/22/2019 2:10 PM [facility] Radha Treviño MD LAB - HEMATOLOGY ORD ERABLES [facility] [address] [place] [address] * (ABNORMAL) BLOOD GASES CORD BARB (ISTAT) (01/20/2019 3:53 AM [facility]) pH Cord Venous POCT 7.36 7.28 - 7.40 pH 01/20/2019 4:02 AM [facility] pCO2 Cord Venous POCT 35 35 - 45 mm hg 01/20/2019 4:02 AM [facility] pO2 Cord Venous POCT 24 22 - 33 mm hg 01/20/2019 4:02 AM [facility] HCO3 Cord Arterial POCT 19.8(L) 22 - 24 mmol/L 01/20/2019 4:02 AM [facility] BE Cord Venous POCT Calc -5 -6.4 - 1.6 mmol/L 01/20/2019 4:02 AM [facility] TCO2 Cord Venous POCT 21(L) 22 - 30 mmol/L 01/20/2019 4:02 AM [facility] O2 Saturation % Cord Venous Calc POCT 40 % 01/20/2019 4:02 AM [facility] Site CORD BARB 01/20/2019 4:02 AM [facility] Sample iSTAT CORD BARB 01/20/2019 4:02 AM [facility] Blood CORD BLOOD SPECIMEN / Unknown 01/20/2019 3:53 AM [facility] 01/20/2019 4:02 AM [facility] Ankita Collins MD LAB - POINT OF PA RE ORDERABLES Performing Organization Address [facility] Co de Phone Number [facility] [address] [place], [place] [phone] * (ABNORMAL) BLOOD GASES CORD ART (ISTAT) (01/20/2019 3:46 AM [facility]) pH Cord Arterial POCT 7.27 7.20 - 7.34 pH 01/20/2019 4:02 AM [facility] pCO2 Cord Arterial POCT 46.6 45 - 55 mm hg 01/20/2019 4:02 AM [facility] pO2 Cord Arterial POCT 13 12 - 25 mm hg 01/20/2019 4:02 AM [facility] HCO3 Cord Arterial POCT 21.4(L) 22 - 24 mmol/L 01/20/2019 4:02 AM [facility] BE Cord Arterial POCT -6(L) -2.9 - 8.3 mmol/L 01/20/2019 4:02 AM [facility] TCO2 Cord Arterial POCT 23 mmol/L 01/20/2019 4:02 AM [facility] O2 Saturation Cord Art % Calc POCT 12 % 01/20/2019 4:02 AM INSPECTOR GLASS OR MIRROR [facility] Site CORD ART 01/20/2019 4:02 AM INSPECTOR GLASS OR MIRROR [facility] Sample iSTAT CORD ART 01/20/2019 4:02 AM INSPECTOR GLASS OR MIRROR [facility] Blood CORD BLOOD SPECIMEN / Unknown 01/20/2019 3:46 AM INSPECTOR GLASS OR MIRROR 01/20/2019 4:02 AM INSPECTOR GLASS OR MIRROR Ankita Collins MD LAB - POINT OF PA RE ORDERABLES Performing Organization Address City/[facility]/ZIP Co de Phone Number [facility] [address] [place], [place] [id number] * EPIDURAL BLOCK PERF (01/19/2019 4:29 PM INSPECTOR GLASS OR MIRROR) Narrative Jenkins, Thuy A, SHUTDOWN PLANNER-TURBINE ENGINE ASSEMBLER - 01/19/2019 4:29 PM INSPECTOR GLASS OR MIRROR Jenkins, Thuy A, SHUTDOWN PLANNER-TURBINE ENGINE ASSEMBLER ? 01/19/2019 ??4:31 PM Neuraxial Block Note ?? Pre-Procedure: ?? Procedure Name: ??Neuraxial Block Patient Location: ??OB Indications: ??at patient's request and labor analgesia Pre-Anesthetic Checklist: ??Patient identified, IV Checked, Risks and benefits discussed, Surgical consent verified, Monitors and equipment, Site examined, Pre-op evaluation done, Time-out performed, Informed consent obtained, Questions answered/anesthesia questions answered and Allergies reviewed Anticoagulation/ Anti-thrombosis status confirmed? ??Yes Supplemental O2: ??room air Monitors: ??continuous pluse ox and BP Patient Condition: ??awake Patient Sedated? ??No Procedure: ?? Block Type: ??Epidural Prep: ??Betadine Sterile Field: ??mask, cap/hat, sterile established and sterile gloves Approach: ??midline Skin was localized? ??Yes Skin localized with: lidocaine (XYLOCAINE) 1 % injection, 1 mL Epidural Block: ?? Is this procedure for postop pain? ??No Needle Type: ??Tuohy Needle gauge: ??18 G Needle length: ??127 mm Placement Site: ??L3-L4 Number of Attempts: ??2 Loss of Resistance: ??8 ?? air Catheter length at skin (cm): ??15 CSF Aspirated from catheter: ??No Blood Aspirated: ??No Test Dose: ??lidocaine 1.5% with 1-200,000 epinephrine ?? 3 ??mL at ?? 01/19/2019 3:59 PM Test Dose Response: ??No Epidural Local Anesthetic Used? ??No Epidural Infusion Medications: ? Ropivacaine: ??0.2% with Fentanyl 2mcg/mL in NS , ??at 12 mL/hr Degree of difficulty: ??none Procedure Tolerance: ??tolerated well Sensory Level: ??T10 Motor Blockade: ??No Position post procedure: ??left uterine displacement Vital Signs: ?? heart tones monitored and stable throughout., Vital signs moniitored and stable throughout. ??See nursing vitals flowsheet for details. Staff: ?? Anesthesia Provider: ??hTuy Ruffin APRN-CRNA ?? - ?? performed the procedure Christiano Pope MD GENERAL ANESTHESIA O RDERABLES * NONSTRESS TEST (01/02/2019 11:07 AM INSPECTOR GLASS OR MIRROR) Narrative Darcy Cuenca MD - 01/02/2019 11:07 AM INSPECTOR GLASS OR MIRROR Darcy Cuenca MD ? 01/02/2019 ??1:32 PM Name: ??Akbar Gilman Date of : ??1995 Today's Date: ??01/02/2019 ?NST RESULTS (RAE) OBJECTIVE FINDINGS Temp: 98.4 ??F (36.9 ??C), Pulse: 86, Resp: 18, BP: 115/60 NST Indication(s): Other (Comment)([facility] ??visit) Uterine Irritability: No Contractions: Irregular Frequency: rare Duration (sec) Range: 40-60 Perceived Intensity: Mild OBJECTIVE FINDINGS Movement: Present Monitoring Mode: External Baseline: 140 BPM Variability: Moderate Decelerations: None Accelerations: Yes OTHER INFORMATION Gabi Ware RN R1 Addendum Assessment/ Non-Stress Test ?Baseline: ??150 beats/minute moderate with periods of marked variability ?Reactive ?Contractions: ??irregular ?Decelerations: ??none Darcy Cuenca MD 01/02/2019 1:32 PM Gabi Garcia MD OB GYNE ORDERABLES * NON-STRESS TEST (12/31/2018 11:49 AM CDT) Only the most recent of4 resultswithin the time period is included. Anatomical Region Laterality Modality Other Narrative 12/31/2018 11:49 AM CDT Suha Vicente MD ? 12/31/2018 ??1:56 PM Name: ??Akbar Gilman Date of : ??1995 Today's Date: ??12/31/2018 efm started 1020 efm stopped ??1115 ?NST RESULTS (RAE) OBJECTIVE FINDINGS Temp: 98.2 ??F (36.8 ??C), Pulse: 83, Resp: 16, BP: 111/64 NST Indication(s): Other (Comment)(oligo, type 2 diabetic) Uterine Irritability: Yes Contractions: Not present OBJECTIVE FINDINGS Movement: Present Monitoring Mode: External Baseline: 125 BPM Variability: Moderate Decelerations: Variable Accelerations: Yes OTHER INFORMATION Inpatient Interventions: None Deanna Wills LPN Patient Active Problem List: ?? Type 2 diabetes mellitus during , third trimester ?? Obesity affecting , antepartum ?? Respiratory infection ?? Asthma complicating , antepartum ?? Supervision of high-risk of young multigravida ?? Previous delivery, antepartum ?? Oligohydramnios, antepartum 120bpm, mod variability, reactive, no decelerations No contractions. F/u as scheduled. Madina Benites MD Jose ORDERABLES * SONOGRAM - LIMITED (12/31/2018 9:29 AM CDT) Anatomical Region Laterality Modality Other 12/31/2018 9:29 AM CDT Narrative 12/31/2018 3:22 PM CDT ? [facility] ? [facility] ?PHONE: ??FAX: Pat. Name: ?AKBAR GILMAN Pat. No: ?[id number] Study Date: ?? 12/31/2018 ??9:29am , Age: ? 1995, 23 Pregnancies: ?? 2, Para 1 Height: ? 67 in Weight: ? 245 lb LMP: ?04/25/2018 GA by LMP: ?35w5d GA by Base: ?? 37w2d ?? CRISTIAN: 01/19/2019 GA Selected: ??37w2d (From [facility]) CRISTIAN: ?01/19/2019 Referring MD: Khris Rai MD Manager Ethics: ??Lidia Lemos RDMS CPT4: ? 66136 BMI: ?38.37 Room: ? 578 Hist/Ind: ? Type 2 diabetes ?Class II obesity ?Oligohydramnios Heart Rate: 123 bpm Amniotic Fluid Index: 09.2cm (07.4-24.3) Q1: 1.2cm ??Q2: 1.8cm ??Q3: 3.0cm ??Q4: 3.3cm ?? Biophysical Profile: 10/07 Breathin ?? Tone: 2 ?? Movement: ??2 ?? AFV: ??2 EVAL, PLACENTA Presentation: cephalic Placenta: anterior Heart Rate: 123 bpm Amniotic Fluid Volume: normal CLINICAL SUMMARY Study Number: 12 ?? A single fetus is seen in cephalic presentation. ??The amniotic fluid volume is within normal limits. ?? IMPRESSION: Single, live, intrauterine at 37w2d Amniotic fluid volume: within normal limits ?? Biophysical profile: Reassuring ?? RECOMMEND: Management per inpatient team. Thank you for allowing us the opportunity to care for your patient. ?? cc: ??Inpatient at time of study ? Jareth Burton MD ?<Electronic Signature> ??12/31/2018 03:21pm Antonieta Moore SHUTDOWN PLANNER-HANDLE SANDER OPERATOR [facility] ORDERABLE S * CULTURE STREP B (12/20/2018 11:24 AM CDT) Culture Strep B Negative for beta-hemolytic Streptococcus Group B [place] 12/23/2018 7:44 AM CDT [facility] Microbiology MISCELLANEOUS SAMPLES / Unknown Collection / Unknown 12/20/2018 11:24 AM CDT 12/20/2018 11:32 AM CDT Ely Ramsey MD LAB - MICROBIOLOGY O RDERABLES [facility] [address] [place], [place] [address], [facility] [phone] * PROTEIN CREATININE RATIO URINE RANDOM PNL (11/25/2018 9:35 AM CDT) Protein Urine 8.4 mg/dL 11/25/2018 10:32 AM CDT [facility] Creatinine Urine 66.85 mg/dL 11/25/2018 10:32 AM CDT [facility] Protein/Creatin ine Ratio Urine 0.13 11/25/2018 10:32 AM CDT [facility] Urine URINE SPECIMEN OBTAINED BY CLEAN CATCH PROCEDURE / Unknown Collection / Unknown 11/25/2018 9:35 AM CDT 11/25/2018 10:01 AM CDT Karla Saunders DO LAB - URINE [place]O REGINA ORDERABLES [facility] [address] [place] [address] * ECHO CONSULT - (11/15/2018 2:09 PM CDT) 11/15/2018 2:09 PM CDT Narrative Procedure Note 11/15/2018 [facility] [place] [phone] Fax Echocardiogram Report Pat.Name: AKBAR GILMAN Pat.ID: [id number] .Date: 11/15/2018 Refer.MD: Carlotta Pratt Exam Time: 2:09:00 PM Study Type: Echo Age: 10 1995,23Y Sex: FEMALE Sonogrphr: CARLOS A Soliman Reason for Study: Diabetes type 2 History / Clinical: Procedures: 2D Complete, Doppler Complete, Color Flow Visit ID: [id number] SUMMARY: Study Data: GA: 30/5 weeks. CRISTIAN: 01/19/2019 . : 2. Para: 1. Type: Rae. Lie: Vertex. Impression: The echocardiogram was within normal limits; however small atrial and ventricular septal defects and persistent ductus arteriosus cannot be excluded as findings. Findings: Anatomic Relationships: Left sided cardiac apex (levocardia). There is normal visceral-cardiac situs, and normal segmental cardiac anatomical relationship. Systemic Veins: There is normal systemic venous return. Pulmonary Veins: The visualized pulmonary veins, one right sided and one left sided pulmonary vein, drain normally to the left atrium. Right Atrium: The right atrial size is normal. Left Atrium: The left atrial size is normal. Atrial Septum: Patent foramen ovale is seen with the foramen flap bowing from right to left and color flow is right to left. Tricuspid Valve: The tricuspid valve is structurally normal. The inflow pattern is normal. Tricuspid velocity is within the normal range. There is no regurgitation present. Mitral Valve: The mitral valve is structurally normal. The inflow pattern is normal. Mitral velocity is within the normal range. There is no regurgitation present. Right Ventricle: The cavity size is normal. The wall thickness is normal. The systolic function is normal. RV Outflow Tract: The outflow tract is normal. Left Ventricle: The cavity size is normal. The wall thickness is normal. The systolic function is normal. LV Outflow Tract: The outflow tract is normal. Ventricular Septum: There is no defect with no shunting. Interventricular septal dimension 3mm in systole. Pulmonary Valve: Leaflets exhibited normal mobility. The transpulmonic velocity is within the normal range. There is no regurgitation present. Aortic Valve: Leaflets exhibited normal mobility. The transaortic velocity is within the normal range. There is no regurgitation present. Pulmonary Artery: The MPA is normal with confluent branch pulmonary arteries. Aorta: aortic arch visualized and is without obstruction by 2D, color flow and Doppler. Ductus Arteriosus: The antegrade flow velocity and pattern in the ductal arch is normal. A normal ductus arteriosus is appreciated. Hydrops Assessment: No pericardial effusion. No evidence of ascites or pleural effusion. Rhythm: The rhythm is normal. heart rate 161bpm Dopplers: Flow in the ductus venosus is normal. The umbilical vein flow pattern is normal. The umbilical artery flow pattern is normal. MEASUREMENTS: DOPPLER Mitral Valve MV pkE -0.38 m/s MV E/A 0.8 no unit MV pkA -0.47 m/s Tricuspid Valve TV pkE -0.4 m/s TV E/A 0.79 no unit TV pkA -0.51 m/s Aortic Valve AVpkVel -0.66 m/s IVS Systolic 2.84 mm IVS Systolic 3 mm IVS Systolic 2.92 mm Pulmonic Valve PV pkVel 0.57 m/s Heart Rate HR 161 bpm 2D Tricuspid Valve TV nataly 9.73 mm Pulmonic Valve PV Nataly 6.22 mm Aorta AO An 5.48 mm Mitral Valve MV Nataly 7.59 mm Signed 11/15/2018 04:05 PM Carlotta Pratt MD Carlotta Pratt MD ECHO ORDERABLES [facility] [address] [place] [address] * XR ANKLE 3+ VW RIGHT (10/24/2018 10:57 PM CDT) Anatomical Region Laterality Modality Lower Extremity Radiographic Liliya ging 10/25/2018 7:07 AM CDT Impressions 10/25/2018 8:15 AM CDT Negative for fracture. Edited by Faby Brito on 10/25/2018 8:01 AM Reading Radiologist: Yadiel Jeffrey MD on 10/25/2018 at 8:15 AM Narrative 10/25/2018 8:15 AM CDT RIGHT ANKLE. HISTORY: Fall. Views of the ankle demonstrate no fracture or dislocation. Procedure Note Yadiel Jeffrey MD - 10/25/2018 RIGHT ANKLE. HISTORY: Fall. Views of the ankle demonstrate no fracture or dislocation. IMPRESSION Negative for fracture. Edited by Faby Brito on 10/25/2018 8:01 AM Reading Radiologist: Yadiel Jeffrey MD on 10/25/2018 at 8:15 AM Sterling Guzman DO DIAGNOSTIC IMAGING O RDERABLES * PULMONARY/RESPIRATORY REPORT ORDER (10/21/2018 9:56 PM CDT) Narrative 10/21/2018 9:56 PM CDT Ordered by an unspecified provider. Scanned Document RESPIRATORY THERAPY ORDERABLES * (ABNORMAL) RESPIRATORY PATHOGEN PANEL BY PCR (10/13/2018 11:29 PM CDT) Adenovirus PCR Not detected Not detected, Invalid, Indeterminate 10/14/2018 8:23 AM CDT [facility] Bordetella pertussis PCR Not detected Not detected, Invalid 10/14/2018 8:23 AM CDT [facility] Chlamydia pneumoniae PCR Detected(A ) Not detected, Invalid, Indeterminate 10/14/2018 8:23 AM CDT [facility] Coronavirus PCR Not detected Not detected, Invalid, Indeterminate 10/14/2018 8:23 AM CDT [facility] Human Metapneumovirus PCR Not detected Not detected, Invalid, Indeterminate 10/14/2018 8:23 AM CDT [facility] Human Rhinovirus/Entero virus PCR Not detected Not detected, Invalid, Indeterminate 10/14/2018 8:23 AM T [facility] Influenza A Non Subtyped PCR Not detected Not detected, Invalid, Indeterminate 10/14/2018 8:23 AM T [facility] Influenza A H1 PCR Not detected Not detected, Invalid, Indeterminate 10/14/2018 8:23 AM T [facility] Influenza A H3 PCR Not detected Not detected, Invalid, Indeterminate 10/14/2018 8:23 AM T [facility] Influenza A H1 2009 PCR Not detected Not detected, Invalid, Indeterminate 10/14/2018 8:23 AM T [facility] Influenza B PCR Not detected Not detected, Invalid, Indeterminate 10/14/2018 8:23 AM T [facility] Mycoplasma pneumoniae PCR Not detected Not detected, Invalid, Indeterminate 10/14/2018 8:23 AM T [facility] Parainfluenza Virus 1 PCR Not detected Not detected, Invalid, Indeterminate 10/14/2018 8:23 AM CDT [facility] Parainfluenza Virus 2 PCR Not detected Not detected, Invalid, Indeterminate 10/14/2018 8:23 AM CDT [facility] Parainfluenza Virus 3 PCR Not detected Not detected, Invalid, Indeterminate 10/14/2018 8:23 AM CDT [facility] Parainfluenza Virus 4 PCR Not detected Not detected, Invalid, Indeterminate 10/14/2018 8:23 AM CDT [facility] Respiratory Syncytial Virus PCR Not detected Not detected, Invalid, Indeterminate 10/14/2018 8:23 AM CDT [facility] Microbiology SPECIMEN FROM NASOPHARYNGEAL STRUCTURE / Unknown Collection / Unknown 10/13/2018 11:29 PM CDT 10/13/2018 11:33 PM CDT Madina Benites MD LAB - MICROBIOLOGY O RDERABLES [facility] [address] [place] [address] [phone] * XR CHEST 1VW (10/13/2018 5:57 PM CDT) Anatomical Region Laterality Modality Chest Radiographic Liliya ging 10/13/2018 6:00 PM CDT Narrative 10/13/2018 6:00 PM CDT Chest 2 view HISTORY: Difficulty breathing The heart size and the mediastinal contours are normal. The pulmonary vascularity and leah are normal. The lungs are clear. Reading Radiologist: Hari Narvaez MD on 10/13/2018 at 6:00 PM Procedure Note Hari Narvaez MD - 10/13/2018 Chest 2 view HISTORY: Difficulty breathing The heart size and the mediastinal contours are normal. The pulmonary vascularity and leah are normal. The lungs are clear. Reading Radiologist: Hari Narvaez MD on 10/13/2018 at 6:00 PM Madina Benites MD DIAGNOSTIC IMAGING O RDERABLES * BLOOD TYPE VERIFICATION (10/13/2018 5:20 PM CDT) ABO O 10/13/2018 5:51 PM CDT [facility] Rh Type Positive 10/13/2018 5:51 PM CDT [facility] Blood Bank BLOOD SPECIMEN / Unknown Lab Venipuncture / Unknown 10/13/2018 5:20 PM CDT 10/13/2018 5:28 PM CDT Hayley Caba MD LAB - BLOOD BANK OR DERABLES [facility] [address] [place] [address], [facility] [phone] Care Teams Meat And Seafood Manager Relationship Specialty Start Date End Date Clinic, [facility] Update Information PCP - General 08/15/20
--- OUTSIDE RECORDS SUMMARY | 2024-03-28 16:40 | XMS_ITS | Encounter Summary ---
Author Organization [facility] Address [address] [place] [address] Care Team Providers Care Train Driver Name Role Phone Khris Rai MD Primary Care Provider [facility], [facility] Primary Care Provider Unavailable Reason for Visit * Reason Onset Date Comments Update 01/04/2019 Encounter Details Date Type Department Care Team (Late st Contact Info) Description 01/04/2019 Telephone [facility] MATERNAL/ EVALUATION UNIT [address] [place] [address] Tricia Abad, CHLORINE CELL TENDER-RESIDENTIAL SUPERVISOR [address] [place] [phone] Update Social History Tobacco Use Types Packs/Day Years Used Date Smoking Tobacco: Never Smokeless Tobacco: Never Alcohol Use Standard Drinks/Week Comments No 0 (1 standard drink = 0.6 oz pur e alcohol) Comments Yes Sex and Gender Information Value Date Recorded Sex Assigned at Not on file Gender Identity Not on file Sexual Orientation Not on file documented as of this encounter Functional Status Functional Status Response Date of Assess ment Is person deaf or have serious hearing difficult y? No 01/02/2019 Is person blind or have serious difficulty seein g? No 01/02/2019 Does person have serious dif ficulty walking/climbing stairs? No 01/02/2019 Does person have difficulty dressing/bathing? No 01/02/2019 Does person have difficulty doing errands alone? No 01/02/2019 Cognitive Status Response Date of Assessm ent Does person have difficulty concentrating/remembering/making decisions? No 01/02/2019 documented as of this encounter Miscellaneous Notes * Telephone Encounter - Tricia Abad, RN - 01/04/2019 2:24 PM WOOL HANDLER Spoke with at /dr. Rai's office to inform them the patient had been admitted on 12/30/2018 for OLigo and was treated with IV hydration. Pt evaluated in [facility] on 01/02 for r/o ROM retlated pt c/o LOF, left side pain and vaginal pain. No ROM patient was stabilized and discharged. HANDLER documented in this encounter Plan of Treatment Upcoming Encounters Date Type Department Care Team (Late st Contact Info) Description 05/12/2024 10:15 AM CDT Office Visit [facility] - Orthopedics [address] [place] [address], [place] [address] Sampson Masterson MD [address] [place] [address] [place] [address] 05/19/2024 8:30 AM CDT Office Visit [facility] - Rheumatology [address] [place] [address], [place] [address] Jagjit Harp MD [address] [place] [address] [place] [phone] documented as of this encounter Visit Diagnoses Not on filedocumented in this encounter Care Teams Train Driver Relationship Specialty [place] [address] [place] [phone] PCP - General Obstetrics and Gynecology 12/30/1807/31 [facility], [facility] Update Information PCP - General 08/15/20 documented as of this encounter
--- OUTSIDE RECORDS SUMMARY | 2024-03-28 16:40 | XMS_ITS | Encounter Summary ---
Author Organization [facility] Address [address] [place] [address] Care Team Providers Care Carrot Harvester Name Role Phone Khris Rai MD Primary Care Provider [facility], [facility] Primary Care Provider Unavailable Reason for Visit * Reason Comments Refill Request Encounter Details Date Type Department Care Team (Late st Contact Info) Description 05/28/2020 Refill [facility] MATERNAL/ EVALUATION UNIT [address] [place] [address] Alejo Ramos MD [address] [place] [address] Refill Request Social History Tobacco Use Types Packs/Day Years [...] or have serious hearing difficult y? No 01/18/2019 Is person blind or have serious difficulty seein g? No 01/18/2019 Does person have serious dif ficulty walking/climbing stairs? No 01/18/2019 Does person have difficulty dressing/bathing? No 01/18/2019 Does person have difficulty doing errands alone? No 01/18/2019 Cognitive Status Response Date of Assessm ent Does person have difficulty concentrating/remembering/making decisions? No 01/18/2019 documented as of this encounter Plan of Treatment Upcoming Encounters Date Type Department Care Team (Late st Contact Info) Description 05/12/2024 10:15 AM CDT Office Visit [facility] - Orthopedics [address] [place] [address], [place] [address] Sampson Masterson MD [address] [facility] DIV OF ORTHOPEDIC [place] [address] 05/19/2024 8:30 AM CDT Office Visit [facility] - Rheumatology [address] [place] [address], [place] [phone] Jagjit Harp MD [address] [facility] [address] DIV [place] [address] documented as of this encounter Visit Diagnoses Diagnosis Type 2 diabetes mellitus complicating , antepartum, second trimester (HCC) documented in this encounter Care Teams Carrot Harvester Relationship Specialty Start Date End Date Khris Rai MD [address] [place] [phone] PCP - General Obstetrics and Gynecology 12/30/1807/31 [facility], [facility] Update Information PCP - General 08/15/20 documented as of this encounter
--- OUTSIDE RECORDS SUMMARY | 2024-03-28 16:40 | XMS_ITS | Clinical Summary ---
Author Organization [facility] Address [address] [place] [address] Care Team Providers Care Veneer Jointer Helper Name Role Phone Clinic, [facility] Primary Care Provider Unavailable Source Comments [facility],non-owned Affiliates and Associated Physician Practices is amultiple site organization consisting of ambulatory clinics and hospital sitesin [place], [place], [place] and [place]. This disclosure is being madepursuant to the Care Everywhere program and may not contain all information available regarding this patient. Last updated 17.[facility] Allergies Active Allergy Reactions Criticality Noted Date [...] migh t be different from the original. [employer] form completed. Diapers given. 05/21/2020 [...] 05/07/2021 Palpitations 05/07/2021 Encounter for health-related screening 2 Encounter for induction of labor 08/02/2020 Heterozygous [...] , for fe basia anatomic survey 06/04/2020 Encounters Date Type Department Care Team Description 03/22/2024 8:45 AM ASSOCIATE DIRECTOR FINANCIAL AID Office Visit [facility] [address] [address] Romel Warren MD Lumbar radiculopathy (Primary Dx); Lumbar pain 03/22/2024 Travel 03/03/2024 11:00 AM ASSOCIATE DIRECTOR FINANCIAL AID Office Visit [facility] Orthoped[facility] [address] [facility], [place] [address] Sampson Masterson MD Lumbar pain (Primary Dx) 03/03/2024 10:59 AM ASSOCIATE DIRECTOR FINANCIAL AID - 03/03/2024 11:59 PM ASSOCIATE DIRECTOR FINANCIAL AID Hospital Encounter [facility] [address]L [address] [facility] [place] [address] Sampson Masterson MD Discharge Disposition: Home or Self Care 03/03/2024 Travel 02/05/2024 Orders Only [facility] [address] [facility], [place] [address] Sampson Masterson MD Lumbar pain 02/05/2024 Telephone [facility] [address] [facility], [place] [address] Sampson Masterson MD Appointment (Referral) from Last 3 Months Immunizations Name Administration Dates Next Due INFLUENZA [...] received),06/04/2020,01/21/2019(Deferr ed: See Comments - already received),11/09/2018,10/01/2007 Family History Medical History Relation Name Comments Diabetes - Type 2 Maternal Grandmother Other Mother prediabetes Down's Syndrome Other Mother's Brother Diabetes - Type 2 Paternal Grandmother Cancer - Breast Neg Hx Cancer - Ovarian Neg Hx Cancer - Uterine Neg Hx Hemophilia Neg Hx Pulmonary Embolism Neg Hx Relation Name Status Comments Maternal Grandmother Mother Other Mother's Brother Alive Paternal Grandmother Social History Tobacco Use Types Packs/Day Years [...] Recorded Patient Health Questionnaire-2 Score 0 02/28/2024 [facility] - [facility] Stress [...] place to sleep or slept in a [facility] (including now)? No 01/15/2023 Sex and Gender Information Value Date Recorded Sex Assigned at Not on file Gender Identity Not on file Sexual Orientation Not on file Last Filed Vital Signs Vital Sign Reading Time Taken Comments Blood Pressure 122/66 03/22/2024 8:52 AM ASSOCIATE DIRECTOR FINANCIAL AID Pulse 81 03/22/2024 8:52 AM ASSOCIATE DIRECTOR FINANCIAL AID Temperature 36.6 ??C (97.8 ??F) 01/16/2023 9:15 AM CS T Respiratory Rate 16 03/22/2024 8:52 AM ASSOCIATE DIRECTOR FINANCIAL AID Oxygen Saturation 99% 05/04/2023 3:46 PM ASSOCIATE DIRECTOR FINANCIAL AID Inhaled Oxygen Concentration 21% 10/14/2018 9 :28 PM CDT Weight 107.5 kg (237 lb) 03/22/2024 8:52 AM ASSOCIATE DIRECTOR FINANCIAL AID Height 170.2 cm (5' 7 ) 05/04/2023 3:46 PM ASSOCIATE DIRECTOR FINANCIAL AID Body Mass Index 37.12 05/04/2023 3:46 PM ASSOCIATE DIRECTOR FINANCIAL AID Plan of Treatment Upcoming Encounters Date Type Department Care Team (Late st Contact Info) Description 05/12/2024 10:15 AM CDT Office Visit [facility] - Orth[facility] [address] [place] [address], [place] [address] Sampson Masterson MD [address] [place] [address] DIV [place] [address] 05/19/2024 8:30 AM CDT Office [facility] [address] [place] [address], [facility] [place] [phone] Jagjit Harp MD [address] [place] [address] [place] [id number] Health Maintenance Due Date Last Done Comments PAP SMEAR 1993 HPV VACCINE (2 - 2-dose series) 10/11/2007 04/12/2007 HEPATITIS C SCREENING 02/17/2011 PNEUMOCOCCAL VACCINE (1 of 2 - PCV) 02/22/2012 DIABETES RETINOPATHY SCREENING 08/04/2018 DIABETES-FOOT EXAM WITH MONOFILAMENT 08/04/2018 DIABETES-HGB A1C 07/16/2023 01/15/2023, 02/13/2020 COVID-19 VACCINE ( season) 2023 01/11/2021, 12/21/2020 INFLUENZA VACCINE (#1) 2023 5, 01/18/2010, 12/31/2007 DIABETES-SERUM CREATININE 01/16/20242022, 08/15/2020, 08/03/2020, Additional history exists DIABETES - URINE PROTEIN SCREENING 03/02/2024 DTAP/TDAP/TD VACCINES (9 - Td or Tdap) 06/04/2030 06/04/2020, 11/09/2018, 10/01/2007, Additional history exists ZOSTER VACCINE (1 of 2) 2043 HEPATITIS B VACCINE Completed 07/28/2002, 12/15/1997, 11/08/1997 MENINGOCOCCAL (Group B) VACCINE Aged Out 10/01/2007 No longer eligible based on patient's age to complete this topic MENINGOCOCCAL VACCINE Aged Out 10/01/2007 No socorro sarbjit eligible based on patient's age to complete this topic HIV SCREENING Completed 06/04/2020, 04/03, 02/15/2020, Additional history exists DEPRESSION SCREENING Completed 03/03/2024 HIB VACCINE Aged Out No longer eligi ble based on patient's age to complete this topic Procedures Procedure Name Priority Date/Time Associated Diagnosis Comments XR LUMBAR SPINE 4VW OR MORE Routine 03/03/2024 11:06 AM ASSOCIATE DIRECTOR FINANCIAL AID Lumbar pain BASIC METABOLIC PANEL (CALCIUM TOTAL) AM Draw 01/15/2023 1:09 AM ASSOCIATE DIRECTOR FINANCIAL AID HEMOGLOBIN A1C Add on 01/15/2023 1:09 AM ASSOCIATE DIRECTOR FINANCIAL AID HIV-1 HIV-2 ANTIBODY + HIV P24 AG PANEL Routine 06/04/2020 9:10 AM CDT Supervision of high-risk of young multigravida (HCC) False positive HIV serology from Last 3 Months or Most Recently Relevant to Health Maintenance Results * XR Lumbar Spine 4Vw or More (03/03/2024 11:06 AM ASSOCIATE DIRECTOR FINANCIAL AID) Anatomical Region Laterality Modality Spine Radiographic Liliya ging 03/03/2024 11:1 2 AM ASSOCIATE DIRECTOR FINANCIAL AID Impressions 03/03/2024 11:14 AM ASSOCIATE DIRECTOR FINANCIAL AID IMPRESSION: Lumbar dextroscoliosis. > Interpreting Provider: Glynn Ro MD on 03/03/2024 11:14 AM Narrative 03/03/2024 11:14 AM ASSOCIATE DIRECTOR FINANCIAL AID PROCEDURE: ??XR LUMBAR SPINE 4VW OR MORE [...] * (ABNORMAL) HEMOGLOBIN A1C (01/15/2023 1:09 AM ASSOCIATE DIRECTOR FINANCIAL AID) Hemoglobin A1c 10.5(H) <5.7 % 01/15/2023 1:50 AM ASSOCIATE DIRECTOR FINANCIAL AID [facility] Estimated Average Glucose 255 mg/dL 01/15/2023 1:50 AM ASSOCIATE DIRECTOR FINANCIAL AID [facility] Blood BLOOD SPECIMEN / Unknown Venipuncture / Unknown 01/15/2023 1:09 AM ASSOCIATE DIRECTOR FINANCIAL AID 01/15/2023 1:21 AM ASSOCIATE DIRECTOR FINANCIAL AID Narrative [facility] - 01/15/2023 1:50 AM ASSOCIATE DIRECTOR FINANCIAL AID HbA1c Interpretation: Normal: < 5.7% Pre-diabetes: 5.7-6.4% [...] Silva MD LAB - CHEMISTRY STEFANIA SANCHEZ [facility] ([place], [place]) Organization Address City/State/ZIP Co de Phone Number [facility] [address] [place] [address] * (ABNORMAL) BASIC METABOLIC PANEL (CALCIUM TOTAL) (01/15/2023 1:09 AM ASSOCIATE DIRECTOR FINANCIAL AID) Glucose 282(H) 70 - 105 mg/dL 01/15/2023 1:37 AM [facility] Sodium 138 136 - 145 mmol/L 01/15/2023 1:37 AM [facility] Potassium 3.7 3.5 - 5.1 mmol/L 01/15/2023 1:37 AM [facility] Chloride 107 98 - 107 mmol/L 01/15/2023 1:37 AM [facility] CO2 20(L) 22 - 29 mmol/L 01/15/2023 1:37 AM [facility] Calcium 8.4 8.4 - 10.4 mg/dL 01/15/2023 1:37 AM [facility] Anion Gap 11 6 - 16 mmol/L 01/15/2023 1:37 AM ASSOCIATE DIRECTOR FINANCIAL AID [facility] BUN 6 5.3 - 18.7 mg/dL 01/15/2023 1:37 AM ASSOCIATE DIRECTOR FINANCIAL AID [facility] Creatinine 0.71 0.57 - 1.11 mg/dL 01/15/2023 1:37 AM ASSOCIATE DIRECTOR FINANCIAL AID [facility] eGFR by CKD-EPI >90 >=90 mL/min/1.7 3 m2 01/15/2023 1:37 AM ASSOCIATE DIRECTOR FINANCIAL AID [facility] Blood BLOOD SPECIMEN / Unknown Venipuncture / Unknown 01/15/2023 1:09 AM ASSOCIATE DIRECTOR FINANCIAL AID 01/15/2023 1:21 AM ASSOCIATE DIRECTOR FINANCIAL AID Anna Da Silva MD LAB - CHEMISTRY STEFANIA SANCHEZ Performing Organization Address City/[facility]/ZIP Co de Phone Number [facility] [address] [place] [address] * (ABNORMAL) HIV-1 HIV-2 ANTIBODY + HIV P24 AG PANEL (06/04/2020 9:10 AM CDT) [facility] HIV1/2 Ab + P24 Ag REACTIVE( A) Non Reactive 06/04/2020 1:42 PM CDT [facility] Blood BLOOD SPECIMEN / Unknown Venipuncture / Unknown 06/04/2020 9:10 AM CDT 06/04/2020 9:27 AM CDT Narrative [facility] - 06/04/2020 1:42 PM CDT HIV-1/HIV-2 Antibody + Antigen screening test is reactive, but is NOT DIAGNOSTIC. HIV-1/HIV-2 AB Differentiation assay, a supplemental test, will be performed. ?? If HIV-1/HIV-2 Differentiation testing is negative, RNA testing will be performed. See separate reports. Suha Vicente MD LAB - CHEMISTRY FAHEEM JUAN Performing Organization Address City/[facility]/ZIP Co de Phone Number [facility] [address] [place] [address] from Last 3 Months or Most Recently Relevant to Health Maintenance Advance Directives * Full Code (Latest Code [...] 5:05 PM 12/31/2018 8:16 PM Care Teams Veneer Jointer Helper Relationship Specialty Start Date End Date Clinic, [facility] Update Information PCP - General 08/15/20
== END 2024-03-28 16:07 | disposition home or self-care (01) ==
PROVIDERS: PCP Emergency Medicine; Visit Provider Emergency Medicine
DX: D17.1 Benign lipomatous neoplasm of skin and subcutaneous tissue of trunk (principal)
CPT/HCPCS: 76705